=== PATIENT | female | born 1940 | race Caucasian/White ===

== ENCOUNTER 2018-04-26 16:46 | Inpatient (IN) | payer OTHER, MEDICAID ==
[~2018-04-26] VITALS: Ht 154.9 cm; Wt 86.2 kg
[~2018-04-26 16:46] MED LIST: FURO40TA4 PO; GLIP5TAB10 PO; LISI10TA2 PO; METF10007 PO; METO5TAB5 PO; PANT40TA5 PO; WARF-35 PO; WARF4TAB65 PO
--- NOTE | 2018-04-26 16:56 | ER.PDOC ---
General Chief Complaint: Requesting Medical Care Stated Complaint: SHORTNESS BREATH Time seen by MD: 17:00 Source: patient Exam Limitations: no limitations History of Present Illness Timing/Duration: 24 hours Severity: moderate Activities at Onset: activity/exertion, rest Prior Episodes/Possible Cause: occasional episodes Modifying Factors: improves with lying down, improves with oxygen, improves with rest Associated Symptoms: edema Prior symptoms/Treatment: Similar symptoms previous, Recenly Seen, Treated by Doctor Allergies: Coded Allergies: erythromycin base (Verified Allergy, Unknown, 02/12/18) Home Meds Active Scripts Metolazone (ZAROXOLYN) 5 Mg Tablet, 5 MG PO DAILY, #4 TABLET 0 Refills Prov:LUCAS PARR MD 02/13/18 Reported Medications Pantoprazole Sodium (PANTOPRAZOLE SODIUM) 40 Mg Tablet.dr, 40 MG PO DAILY24 02/12/18 Glipizide (GLIPIZIDE) 5 Mg Tablet, 1 TAB PO BID, #60 TAB 3 Refills 02/12/18 Furosemide (FUROSEMIDE) 40 Mg Tablet, 1 TAB PO DAILY, #30 TAB 5 Refills 02/12/18 Lisinopril (LISINOPRIL) 10 Mg Tablet, 1 TAB PO DAILY, #30 TAB 5 Refills 02/12/18 Metformin Hcl (METFORMIN HCL) 1,000 Mg Tablet, 2 TAB PO DAILY24, #60 TAB 5 Refills 02/12/18 Warfarin Sodium (WARFARIN SODIUM) 5 Mg Tablet, 7 TAB PO DAILY, #90 TAB 1 Refill 02/12/18 Warfarin Sodium (WARFARIN SODIUM) 4 Mg Tablet, 4 TAB PO DAILY, #90 TAB 1 Refill 02/12/18 Past Medical History Surgical History: tonsillectomy, other (pneumonectomy l side) LMP (females 10-50): postmenopause Family History Significant Family History: no pertinent family hx Social History Smoking: non-smoker Alcohol Use: none Drug Use: none Reviewed Nursing Reviewed: Vital Signs, Abn. Noted Review of Systems All Other Systems: Reviewed and Negative Physical Exam General Appearance: No Apparent Distress, WD/WN HEENT: PERRL/EOMI, Normal ENT Inspection, TMs Normal, Pharynx Normal Neck: Non-Tender, Full Range of Motion, Supple, Normal Inspection Respiratory: decreased breath sounds, rales Cardiovascular: Normal Peripheral Pulses, Regular Rate, Rhythm, No Edema, No Gallop, No JVD, No Murmur Gastrointestinal: Normal Bowel Sounds, No Organomegaly, No Pulsatile Mass, Non Tender, Soft Extremities: Pedal Edema Neurologic/Psychiatric: respiratory care program director II-XII NML as Tested, No Motor/Sensory Deficits, Alert, Normal Mood/Affect, Oriented x 3 Skin: Normal Color, Warm/Dry Lymphatic: No Adenopathy Results/Orders Results/Orders Laboratory Tests Test 04/26/18 17:12 White Blood Count 5.8 10^3/uL (4.5-11.0) Red Blood Count 3.60 10^6/uL (4.00-5.20) Hemoglobin 9.7 g/dL (12.0-15.0) Hematocrit 32.5 % (36.0-46.0) Mean Corpuscular Volume 90.3 fL (78-100) Mean Corpuscular Hemoglobin 26.9 pg (26-34) Mean Corpuscular Hemoglobin Concent 29.8 g/dL (33-37) Red Cell Distribution Width 15.0 % (11.5-14.5) Platelet Count 202 10^3/uL (150-400) Mean Platelet Volume 9.8 fL (7.8-11.0) Neutrophils (%) (Auto) 67.2 % (41.0-85.0) Lymphocytes (%) (Auto) 14.6 % (24.0-44.0) Monocytes (%) (Auto) 12.6 % (5.0-12.0) Neutrophils # (Auto) 3.9 10^3/uL (1.8-7.7) Lymphocytes # (Auto) 0.9 10^3/uL (1.0-4.8) Monocytes # (Auto) 0.7 10^3/uL (0.3-0.8) Absolute Immature Granulocyte (auto 0.05 10^3 u/L (0-2) Eosinophils % 4.0 % (0.0-5.0) Basophils % 0.7 % (0.0-0.2) Basophils # 0.0 10^3/uL (0.0-0.1) Eosinophil Count 0.2 10^3/uL (0.0-0.2) Prothrombin Time 27.4 SEC (9.8-11.9) Prothrombin Time INR (Non-Therap) 2.8 Activated Partial Thromboplast Time 41.0 SEC (24.67-30.72) D-Dimer 0.39 mg/L (0.19-0.49) Sodium Level Pending Potassium Level Pending Chloride Level Pending Carbon Dioxide Level Pending Anion Gap Pending Blood Urea Nitrogen Pending Creatinine Pending BUN/Creatinine Ratio Pending Glucose Level Pending Calcium Level Pending Total Bilirubin Pending Aspartate Amino Transf (AST/SGOT) Pending Alanine Aminotransferase (ALT/SGPT) Pending Alkaline Phosphatase Pending Total Creatine Kinase Pending Troponin I 0.02 ng/mL (0.00-0.05) Pro-B-Type Natriuretic Peptide Pending Total Protein Pending Albumin Pending Globulin Pending Percent Immature Gran (Cell Imm) 0.90 % (0.00-0.50) Helicobacter pylori Screen NEGATIVE (NEGATIVE) Administered Medications Medications (Trade) Dose Ordered Sig/Jose Route PRN Reason Start Time Stop Time Status Last Admin Dose Admin Furosemide (Lasix) 40 mg STAT STAT IV 04/26/18 17:01 04/26/18 17:06 DC 04/26/18 17:18 Albuterol/ Ipratropium (Duoneb 0.5 Mg-3 Mg/3 ml Soln) 3 ml STAT STAT IH 04/26/18 17:10 04/26/18 17:11 UNV 04/26/18 17:14 EKG/XRAY/CT/US EKG: NSR, nonspecific ST T wave chg EKG Comments: intermittent pacing Consult/PCP Time Consult/PCP Called: 19:00 Consult/PCP: dr parr Course Sepsis Screening Results: Posi: NEGATIVE Sepsis Qualifier/Stage: NO DEFINITE RISK Vitals & review Data Vital Sign - Last 24 Hours 04/26/18 04/26/18 04/26/18 04/26/18 17:06 17:06 17:06 17:09 Temp 97.7 97.7 97.7 97.7 Pulse 93 91 93 86 Resp 28 18 28 Pulse Ox 91 98 98 O2 Delivery Room Air 04/26/18 04/26/18 17:10 17:18 Temp 97.7 97.7 Pulse 86 Resp 28 B/P (MAP) 120/72 (88) 120/72 Pulse Ox 98 O2 Delivery Room Air Laboratory Tests Test 04/26/18 17:12 White Blood Count 5.8 10^3/uL Red Blood Count 3.60 10^6/uL Hemoglobin 9.7 g/dL Hematocrit 32.5 % Mean Corpuscular Volume 90.3 fL Mean Corpuscular Hemoglobin 26.9 pg Mean Corpuscular Hemoglobin Concent 29.8 g/dL Red Cell Distribution Width 15.0 % Platelet Count 202 10^3/uL Mean Platelet Volume 9.8 fL Neutrophils (%) (Auto) 67.2 % Lymphocytes (%) (Auto) 14.6 % Monocytes (%) (Auto) 12.6 % Neutrophils # (Auto) 3.9 10^3/uL Lymphocytes # (Auto) 0.9 10^3/uL Monocytes # (Auto) 0.7 10^3/uL Absolute Immature Granulocyte (auto 0.05 10^3 u/L Eosinophils % 4.0 % Basophils % 0.7 % Basophils # 0.0 10^3/uL Eosinophil Count 0.2 10^3/uL Prothrombin Time 27.4 SEC Prothrombin Time INR (Non-Therap) 2.8 Activated Partial Thromboplast Time 41.0 SEC D-Dimer 0.39 mg/L Troponin I 0.02 ng/mL Percent Immature Gran (Cell Imm) 0.90 % Helicobacter pylori Screen NEGATIVE Current Medications Medications (Trade) Dose Ordered Sig/Jose PRN Reason Start Time Stop Time Status Last Admin Albuterol/ Ipratropium (Duoneb 0.5 Mg-3 Mg/3 ml Soln) 3 ml STAT STAT 04/26/18 17:10 04/26/18 17:11 UNV 04/26/18 17:14 Departure Time of Disposition: 18:22 Disposition: 09 ADMITTED INPATIENT Impression: Primary Impression: CHF exacerbation Condition: Improved Referrals: LUCAS PARR MD (PCP) PRIMARY CARE PROVIDER Duration or Time Spent with Pa: 2 hrs RORO MATTSON MD Apr 26, 2018 16:56
[2018-04-26] MEDS ORDERED: DUONEB 0.5 MG-3 MG/3 ML SOLN IH ONE (17:00)
[2018-04-26] MEDS ORDERED: LASIX IV STA (17:01)
[2018-04-26 17:10] VITALS: BP 120/72
[2018-04-26] MEDS ORDERED: DUONEB 0.5 MG-3 MG/3 ML SOLN IH STA (17:10)
--- NOTE | 2018-04-26 17:11 | PCM.EKG ---
[facility] Test Date: 2018-04-26 Test Time: 17:09:45 Pat Name: SUHA LAURENT Department: Patient ID: [facility]-[id number] Room: Gender: F Balance Wheel Motion Inspector: EMMA : 1940 Requested By: RORO GREENE Order Number: [id number] Reading MD: Roro Greene Measurements Intervals [place] Rate: 89 P: 112 OK: 122 QRS: -63 QRSD: 114 T: 49 QT: 424 QTc: 515 Interpretive Statements sinus rhythm Left anterior fascicular block Nonspecific ST and T wave abnormality Prolonged QT Abnormal ECG Compared to ECG 02/12/2018 12:29:59 Left anterior fascicular block now present ST (T wave) deviation now present Prolonged QT interval now present Atrial fibrillation no longer present Ventricular premature complex(es) no longer present Myocardial infarct finding no longer present intermittent pacing Electronically Signed On 04-26-2018 17:17:48 [employer]ACHING [employer] by Roro Greene Please click the below link to view image of tracing.
[2018-04-26 17:16] LABS: BASOPHIL % 0.7 % (0.0-0.2); EOSINOPHIL # 0.2 10^3/uL (0.0-0.2); HEMOGLOBIN 9.7 g/dL (12.0-15.0); LYMPHOCYTES # 0.9 10^3/uL (1.0-4.8); LYMPHOCYTES % 14.6 % (24.0-44.0); MEAN CELL HGB 26.9 pg (26-34); MEAN CELL HGB CONCENTRATION 29.8 g/dL (33-37); MEAN CORP VOLUME 90.3 fL (78-100); MEAN PLATELET VOLUME 9.8 fL (7.8-11.0); MONOCYTES # 0.7 10^3/uL (0.3-0.8); MONOCYTES % 12.6 % (5.0-12.0); NEUTROPHIL # 3.9 10^3/uL (1.8-7.7); NEUTROPHILS % 67.2 % (41.0-85.0); WHITE BLOOD CELL 5.8 10^3/uL (4.5-11.0)
[2018-04-26] MEDS ORDERED: LASIX ONE (17:18)
--- NOTE | 2018-04-26 17:25 | DIREP ---
PROCEDURE:CHEST 1 VIEW COMPARISON:[facility], CR, XRAY CHEST SINGLE VW, 02/12/2018, 12:03 PM. INDICATIONS:dyspnea FINDINGS: LUNGS/PLEURA:Previous left pneumonectomy with volume loss in the left hemithorax. The left hemithorax is nearly, completely opacified with early aeration in the region the left lung apex. There is expansion in the right lung. VASCULATURE:Normal. Unremarkable pulmonary vasculature. CARDIAC:Normal. No cardiac silhouette abnormality or cardiomegaly. MEDIASTINUM:Mediastinum is shifted to the left. BONES:Normal. No fracture or visible bony lesion. OTHER:Monitor leads are in place. CONCLUSION:The right lung is clear. The left hemithorax remains nearly completely opacified Dictated by: Lois Levy M.D. on 04/26/2018 at 05:22 PM
[2018-04-26 17:42] LABS: CALCIUM 9.4 mg/dL (8.4-10.5); CARBON DIOXIDE 29.7 mmol/L (20.0-32)
--- NOTE | 2018-04-26 17:50 | NUR ---
KESHAV MATTSON ON PHONE WITH DR PARR REGARDING PT.
[2018-04-26] MEDS ORDERED: POTA20TA14 PO (18:03)
[2018-04-26] MEDS ORDERED: FURO40TA4 PO (18:03)
[2018-04-26] MEDS ORDERED: CARV12.5 PO (18:03)
[2018-04-26 18:05] VITALS: BP 101/62
--- NOTE | 2018-04-26 18:41 | NUR ---
Med Surg Called to bring patient up to med surgDafne states if we could wait a few minutes due to the nurses still being in report.
[2018-04-26 19:00] VITALS: BP 136/82
[2018-04-26] MEDS: DUONEB 0.5 MG-3 MG/3 ML SOLN IH SCH (20:09)
[2018-04-26] MEDS ORDERED: SOLU-MEDROL IV STA (22:05)
[2018-04-26] MEDS ORDERED: SOLU-MEDROL ONE (22:40)
[2018-04-26] MEDS: PROTONIX PO SCH (22:54)
[2018-04-26] MEDS: HNS 1000ML 1,000 ML IV SCH (22:54)
--- NOTE | 2018-04-26 23:08 | HPH ---
ADMIT DATE: 04/26/2018 The patient is being admitted as an inpatient to Med/Surg. PRIMARY CARE PHYSICIAN: Carla Chen MD ADMITTING DIAGNOSES: Chronic obstructive pulmonary disease exacerbation with acute hypoxic respiratory failure with a history of atrial fibrillation, diastolic congestive heart failure, hypertension, type 2 diabetes mellitus. CHIEF COMPLAINT: Breathing problems. HISTORY OF PRESENT ILLNESS: The patient is a 77-year-old female who has underlying COPD and heart failure issues who started to have increasing shortness of breath and congestion. Her O2 concentrator at home has been malfunctioning, so she states that she has been having increasing work of breathing. She was having worsening breathing, so she went into the ER where her O2 sats were down to 80% and she was given breathing treatments and IV Lasix and her O2 sats started to come back up, but she states that she has been having worsening shortness of breath and coughing at home. She has been taking her medications as prescribed and she has been urinating a lot due to her diuretics. She denies any fevers. No chills, no night sweats, no syncope, no lethargy. No chest pain reported. No dysuria. No arthralgias. No melena, no hematochezia, no hematemesis, no hemoptysis. She just states that she has been having gradual increasing shortness of breath and it is hard for her to breathe. PAST MEDICAL HISTORY: Significant for COPD. She has had a prior lung cancer, chronic atrial fibrillation, diastolic CHF that is chronic, hypertension, type 2 diabetes mellitus. ALLERGIES: ERYTHROMYCIN. PAST SURGICAL HISTORY: She has had a left pneumonectomy due to the lung cancer. She has had a colonoscopy. She had a tonsillectomy. SOCIAL HISTORY: She has quit smoking, no illicit drugs, no alcohol reported. FAMILY HISTORY: Asked and noncontributory for this admission. MEDICATIONS: She is on include Coreg, Lasix, glipizide, lisinopril, Zaroxolyn, Protonix, warfarin, metformin, potassium. PHYSICAL EXAMINATION: VITAL SIGNS: When she came into the ER, temperature was 97.7, pulse rate was 83, respirations up to 28, blood pressure was 120/72, O2 sats were 91%, but it did drop down in the 80s. My physical exam is as follows: GENERAL: When I saw her, she had already received Lasix and breathing treatments. HEENT: Oropharynx was clear. Moist mucous membranes noted. No maxillary sinus tenderness. NECK: Supple. HEART: S1 and S2 audible. She was not tachycardic. LUNGS: No breath sounds to the left side. Right side sounded clear. ABDOMEN: Good bowel sounds, soft abdomen, no rebound, no guarding, no masses felt. EXTREMITIES: She had some mild generalized edema to her legs, 2+ distal pulses. SKIN: Warm and dry. LABORATORY DATA: Obtained in the ER, white count was 5800, hemoglobin 9.7, platelet count of 202. Coags: Had a PT of 27.4, INR of 2.8, PTT of 41. D-dimer is 0.39. Chemistry panel showed a BUN that was elevated to 82, creatinine elevated to 1.89, potassium 4.9, glucose 201, proBNP was 12,487, albumin 3.3. Rest of LFTs were normal. H. pylori was negative. IMAGING STUDIES: Chest x-ray showed total whiteout of the left lung that is nothing new with her prior pneumonectomy and the right lung was clear. EKG showed some prolonged QT noted. Some ST segment changes that is nonspecific. ASSESSMENT: We have this elderly female with chronic obstructive pulmonary disease exacerbation with hypoxic acute respiratory failure with acute renal failure secondary to acute tubular necrosis and dehydration. I do believe she is over diuresed at this point and she is on the dry side affecting her kidneys. I will go ahead and hold her diuretics and gently hydrate her over the next 3 days to see if her BUN and creatinine improve, put her on some breathing treatments and a dose of Solu-Medrol x 1, and I will follow her sugars and blood pressures in the hospital. Carla Chen MD DR: AUGUSTO/reanna JOB# [id number]
[2018-04-26 23:16] VITALS: BP 112/52
[2018-04-27] MEDS: DUONEB 0.5 MG-3 MG/3 ML SOLN IH SCH ×4 (03:06→21:04)
[2018-04-27 04:26] VITALS: BP 121/63
[2018-04-27 07:15] VITALS: BP 114/52
[2018-04-27] MEDS: KLOR-CON 10 PO SCH (08:45)
[2018-04-27] MEDS: ZESTRIL PO SCH (08:49)
[2018-04-27] MEDS: GLUCOTROL PO SCH ×2 (08:49→21:04)
[2018-04-27] MEDS: COREG PO SCH ×3 (08:49→21:05)
[2018-04-27] MEDS ORDERED: LASIX IV SCH (09:00)
[2018-04-27] MEDS ORDERED: COUMADIN PO SCH (09:00)
--- NOTE | 2018-04-27 09:50 | NUR ---
DISCHARGE PLAN CASE MANAGEMENT VISITED WITH PATIENT AND FAMILY CONCERNING DISCHARGE PLAN AND NEEDS. LIVES AT HOME ALONE. HAS VERY SUPPORTIVE FAMILY. INDEPENDENT OF ADLS PRIOR TO THIS ADMISSION. HAS ALL DME INCLUDING WALKER, CANE, AND SHOWER IS SET UP WITH PULL UP BARS. HOME OXYGEN IS PROVIDED BY [facility], [place]. CM EDUCATED PATIENT ON HOME HEALTH AND OUTPATIENT SERVICES PATIENT TITA NEED FOR SERVICES. DISCHARGE GOAL IS TO DISCHARGE HOME ALONE AND CONTINUE SELF CARE. DENIES FURTHER NEEDS AT THIS TIME.
[2018-04-27 12:17] VITALS: BP 105/56
[2018-04-27] MEDS: HNS 1000ML 1,000 ML IV SCH (14:07)
[2018-04-27] MEDS: COUMADIN PO SCH (17:00)
[2018-04-27 17:09] VITALS: BP 126/61
[2018-04-27 17:17] LABS: CALCIUM 9.5 mg/dL (8.4-10.5); CARBON DIOXIDE 32.9 mmol/L (20.0-32)
[2018-04-27] MEDS ORDERED: COUMADIN ONE ×2 (17:31)
--- NOTE | 2018-04-27 17:45 | PRM.PN ---
Subjective Subjective Date: Apr 27, 2018 Time: 17:10 Subjective Pt doing ok; breathing ok VTE VTE Risk Total Score: >5 VTE Risk Score VTE Risk: Score 0-1 = Low Risk (Aggressive mobilization; early ambulation; no VTE prophylaxis required) Score 2: Moderate Risk (Intermittent/Pneumatic Compression Device OR Lovenox/Heparin/Coumadin) Score 3-4: High Risk (Intermittent/Pneumatic Compression Device AND Lovenox/Heparin/Coumadin) Score > or =5: Highest Risk (Intermittent/Pneumatic Compression Device AND Lovenox/Heparin/Coumadin) Antico:Hep/LMWH/Coum/Xarelto: Yes Mechanical device ordered: Yes Review of Systems Constitutional: No: Fever, Chills, Sweats, Weakness, Malaise Eyes: No: Pain, Vision change, Conjunctivae inflammation ENT: No: Ear pain, Ear discharge, Nose pain Respiratory: No: Cough, Dry, Shortness of breath Cardiovascular: No: Chest Pain, Palpitations, Orthopnea Gastrointestinal: No: Nausea, Vomiting, Abdominal Pain Musculoskeletal: No: neck pain, shoulder pain, arm pain Skin: No: Lesions, Jaundice, Bruising Neurological: No: Numbness, Confusion, Seizures Allergies: Coded Allergies: erythromycin base (Verified Allergy, Unknown, 02/12/18) Scheduled Carvedilol 12.5MG (Coreg 12.MG), 1 TAB PO TID, (Reported) Furosemide (Furosemide), 1 TAB PO DAILY, (Reported) Furosemide (Furosemide), 2.5 TAB PO TID, (Reported) Glipizide (Glipizide), 1 TAB PO BID, (Reported) Lisinopril (Lisinopril), 1 TAB PO DAILY, (Reported) Metformin Hcl (Metformin Hcl), 2 TAB PO DAILY24, (Reported) Metolazone (Zaroxolyn), 5 MG PO DAILY Pantoprazole Sodium (Pantoprazole Sodium), 40 MG PO DAILY24, (Reported) Potassium Chloride (Potassium Chloride), 2 TAB PO TID, (Reported) Warfarin Sodium (Warfarin Sodium), 4 TAB PO DAILY, (Reported) Warfarin Sodium (Warfarin Sodium), 7 TAB PO DAILY, (Reported) Objective Vitals and I/O Vital Sign - Last 24 Hours 04/26/18 04/26/18 04/26/18 04/26/18 18:05 18:47 18:48 19:00 Temp 97.8 97.8 Pulse 73 86 88 Resp 24 24 24 B/P (MAP) 101/62 (75) 136/82 (100) Pulse Ox 98 91 91 98 O2 Delivery Nasal Canula Nasal Cannula Nasal Canula O2 Flow Rate 3.00 3.00 3.00 FiO2 32 04/26/18 04/26/18 04/26/18 04/26/18 19:30 20:11 20:13 20:20 Pulse 88 88 85 Resp 20 20 18 Pulse Ox 92 92 92 O2 Delivery Nasal Cannula Nasal Cannula O2 Flow Rate 3.00 3.00 FiO2 32 04/26/18 04/27/18 04/27/18 04/27/18 23:16 03:06 03:11 04:26 Temp 97.8 97.9 97.8 97.9 Pulse 60 62 60 83 Resp 20 18 18 20 B/P (MAP) 112/52 (72) 121/63 (82) Pulse Ox 97 95 98 98 O2 Flow Rate 3.00 3.00 04/27/18 04/27/18 04/27/18 04/27/18 07:15 07:15 08:49 08:49 Temp 97.9 97.9 Pulse 60 60 Resp 20 B/P (MAP) 114/52 (72) 114/52 114/52 Pulse Ox 97 O2 Delivery Nasal Cannula O2 Flow Rate 3.00 3.00 04/27/18 04/27/18 04/27/18 04/27/18 09:24 09:25 09:35 12:17 Temp 97.9 97.9 Pulse 78 78 83 82 Resp 18 B/P (MAP) 105/56 (72) Pulse Ox 95 95 93 96 O2 Delivery Nasal Cannula Nasal Canula O2 Flow Rate 3.00 3.00 FiO2 32 04/27/18 04/27/18 04/27/18 04/27/18 14:07 14:53 14:58 17:09 Temp 98.9 98.9 Pulse 82 79 75 69 Resp 18 18 19 B/P (MAP) 105/56 126/61 (82) Pulse Ox 97 95 91 O2 Delivery Nasal [place] O2 Flow Rate 3.00 Intake and Output 04/26/18 04/26/18 04/27/18 15:00 23:00 07:00 Intake Total 350 ml Output Total 500 ml 800 ml Balance -500 ml -450 ml General: Alert, Oriented X3, Cooperative, No acute distress HEENT: Atraumatic, PERRLA, EOMI Neck: Supple, No JVD, No thyromegaly Lungs: Other (no BS to L side) Heart: Normal S1, Normal S2 Abdomen: Normal bowel sounds, Soft Extremities: No clubbing, No cyanosis Skin: No rashes, No breakdown Neuro: Normal speech Psych/Mental Status: Mental status NL, Mood NL Course Sepsis Screening Results: Posi: NEGATIVE Sepsis Qualifier/Stage: NO DEFINITE RISK Vitals & review Data Vital Sign - Last 24 Hours 04/26/18 04/26/1818 18 17:06 17:06 17:06 17:09 Temp 97.7 97.7 97.7 97.7 Pulse 93 91 93 86 Resp 18 28 18 28 Pulse Ox 91 98 98 O2 Delivery Room Air 04/26/18 04/26/18 17:10 17:18 Temp 97.7 97.7 Pulse 86 Resp 28 B/P (MAP) 120/72 (88) 120/72 Pulse Ox 98 O2 Delivery Room Air Laboratory Tests Test 04/26/18 17:12 White Blood Count 5.8 10^3/uL Red Blood Count 3.60 10^6/uL Hemoglobin 9.7 g/dL Hematocrit 32.5 % Mean Corpuscular Volume 90.3 fL Mean Corpuscular Hemoglobin 26.9 pg Mean Corpuscular Hemoglobin Concent 29.8 g/dL Red Cell Distribution Width 15.0 % Platelet Count 202 10^3/uL Mean Platelet Volume 9.8 fL Neutrophils (%) (Auto) 67.2 % Lymphocytes (%) (Auto) 14.6 % Monocytes (%) (Auto) 12.6 % Neutrophils # (Auto) 3.9 10^3/uL Lymphocytes # (Auto) 0.9 10^3/uL Monocytes # (Auto) 0.7 10^3/uL Absolute Immature Granulocyte (auto 0.05 10^3 u/L Eosinophils % 4.0 % Basophils % 0.7 % Basophils # 0.0 10^3/uL Eosinophil Count 0.2 10^3/uL Prothrombin Time 27.4 SEC Prothrombin Time INR (Non-Therap) 2.8 Activated Partial Thromboplast Time 41.0 SEC D-Dimer 0.39 mg/L Troponin I 0.02 ng/mL Percent Immature Gran (Cell Imm) 0.90 % Helicobacter pylori Screen NEGATIVE Current Medications Medications (Trade) Dose Ordered Sig/Jose PRN Reason Start Time Stop Time Status Last Admin Albuterol/ Ipratropium (Duoneb 0.5 Mg-3 Mg/3 ml Soln) 3 ml STAT STAT 04/26/18 17:10 04/26/18 17:11 UNV 04/26/18 17:14 Assessment/Plan Assessment/Plan Assessment/Plan 77 yo female with ARF with ATN and dehydration, COPD, h/i afib, DM, HTN - cont IVF - recheck labs tomorrow - cont O2 and neb tx - follow sugars and BPs LUCAS PARR MD Apr 27, 2018 17:45
[2018-04-27 19:22] VITALS: BP 113/70
[2018-04-27] MEDS: PROTONIX PO SCH (21:04)
[2018-04-28] VITALS: BP 112/73
[2018-04-28] MEDS: DUONEB 0.5 MG-3 MG/3 ML SOLN IH SCH ×3 (02:32→14:19)
[2018-04-28 04:00] VITALS: BP 127/81
--- NOTE | 2018-04-28 06:37 | NUR ---
report to siobhan bailey
--- NOTE | 2018-04-28 06:58 | NUR ---
REPORT REPORT RECEIVED FROM NETWORK INTELLIGENCE ANALYST
[2018-04-28 08:24] VITALS: BP 124/65
[2018-04-28] MEDS: ZESTRIL PO SCH (08:26)
[2018-04-28] MEDS: KLOR-CON 10 PO SCH (08:26)
[2018-04-28] MEDS: GLUCOTROL PO SCH ×2 (08:27→21:47)
[2018-04-28] MEDS: COREG PO SCH ×4 (08:27→21:47)
[2018-04-28] MEDS: HNS 1000ML 1,000 ML IV SCH (08:34)
--- NOTE | 2018-04-28 09:17 | DIREP ---
PROCEDURE:US KIDNEYS-BILAT COMPARISON:[facility], CT, CT CHEST W/CONTRAST, 10/28/2016, 09:10 AM. INDICATIONS:ARF TECHNIQUE:Ultrasound examination was performed of the kidneys and bladder. FINDINGS: RIGHT KIDNEY:10.1 x 4.9 x 4.3 cm. Cortex: 1.4 cm LEFT KIDNEY: 9.3 x 5.4 x 5.4 cm. Cortex: 1.2 cm BLADDER (pre-void):7.7 x 9.6 x 6.2 cm. Volume 323.3 ml BLADDER (post-void): 4.8 x 9.2 x 4.3 cm. Volume 99.2 ml MICTURATED VOLUME: 224.1 ml RIGHT KIDNEY: No hydronephrosis. Cyst noted in the superior pole measuring 2.8 x 2.3 x 3.0 cm. LEFT KIDNEY: Normal. No hydronephrosis. BLADDER:Normal. Bilateral ureteral jets are noted. OTHER:Negative. CONCLUSION:Right renal cyst. Large postvoid residual in the bladder. Otherwise normal examination. Dictated by: ENRIQUE Physician on 04/28/2018 at 08:53 AM ac
[2018-04-28 10:05] LABS: BASOPHIL % 0.4 % (0.0-0.2); EOSINOPHIL # 0.1 10^3/uL (0.0-0.2); EOSINOPHIL % 1.7 % (0.0-5.0); HEMOGLOBIN 8.8 g/dL (12.0-15.0); LYMPHOCYTES # 0.8 10^3/uL (1.0-4.8); LYMPHOCYTES % 11.2 % (24.0-44.0); MEAN CELL HGB 26.9 pg (26-34); MEAN CORP VOLUME 92.7 fL (78-100); MONOCYTES # 0.8 10^3/uL (0.3-0.8); MONOCYTES % 11.6 % (5.0-12.0); NEUTROPHIL # 5.1 10^3/uL (1.8-7.7); NEUTROPHILS % 74.1 % (41.0-85.0); RED CELL DISTRIBUTION WIDTH 15.1 % (11.5-14.5); WHITE BLOOD CELL 6.9 10^3/uL (4.5-11.0)
[2018-04-28 10:22] LABS: CALCIUM 9.3 mg/dL (8.4-10.5); CARBON DIOXIDE 30.7 mmol/L (20.0-32)
[2018-04-28 13:12] VITALS: BP 126/68
--- NOTE | 2018-04-28 13:15 | PRM.PN ---
Subjective Subjective Date: Apr 28, 2018 Time: 12:55 Subjective Pt doing ok; breathing ok VTE VTE Risk Total Score: >5 VTE Risk Score VTE Risk: Score 0-1 = Low Risk (Aggressive mobilization; early ambulation; no VTE prophylaxis required) Score 2: Moderate Risk (Intermittent/Pneumatic Compression Device OR Lovenox/Heparin/Coumadin) Score 3-4: High Risk (Intermittent/Pneumatic Compression Device AND Lovenox/Heparin/Coumadin) Score > or =5: Highest Risk (Intermittent/Pneumatic Compression Device AND Lovenox/Heparin/Coumadin) Antico:Hep/LMWH/Coum/Xarelto: Yes Mechanical device ordered: Yes Review of Systems Constitutional: No: Fever, Chills, Sweats, Weakness, Malaise Eyes: No: Pain, Vision change, Conjunctivae inflammation ENT: No: Ear pain, Ear discharge, Nose pain Respiratory: No: Cough, Dry, Shortness of breath Cardiovascular: No: Chest Pain, Palpitations, Orthopnea Gastrointestinal: No: Nausea, Vomiting, Abdominal Pain Musculoskeletal: No: neck pain, shoulder pain, arm pain Skin: No: Lesions, Jaundice, Bruising Neurological: Weakness; No: Numbness, Confusion, Seizures Allergies: Coded Allergies: erythromycin base (Verified Allergy, Unknown, 02/12/18) Scheduled Carvedilol 12.5MG (Coreg 12.MG), 1 TAB PO TID, (Reported) Furosemide (Furosemide), 1 TAB PO DAILY, (Reported) Furosemide (Furosemide), 2.5 TAB PO TID, (Reported) Glipizide (Glipizide), 1 TAB PO BID, (Reported) Lisinopril (Lisinopril), 1 TAB PO DAILY, (Reported) Metformin Hcl (Metformin Hcl), 2 TAB PO DAILY24, (Reported) Metolazone (Zaroxolyn), 5 MG PO DAILY Pantoprazole Sodium (Pantoprazole Sodium), 40 MG PO DAILY24, (Reported) Potassium Chloride (Potassium Chloride), 2 TAB PO TID, (Reported) Warfarin Sodium (Warfarin Sodium), 4 TAB PO DAILY, (Reported) Warfarin Sodium (Warfarin Sodium), 7 TAB PO DAILY, (Reported) Objective Vitals and I/O Vital Sign - Last 24 Hours 04/27/18 04/27/18 04/27/18 04/27/18 14:07 14:53 14:58 17:09 Temp 98.9 98.9 Pulse 82 79 75 69 Resp 18 18 19 B/P (MAP) 105/56 126/61 (82) Pulse Ox 97 95 91 O2 Delivery Nasal Canula O2 Flow Rate 3.00 04/27/18 04/27/18 04/27/18 04/27/18 19:22 19:22 19:22 21:05 Temp 98.0 98.0 98.0 98.0 Pulse 77 77 69 Resp 18 18 B/P (MAP) 113/70 (84) 113/70 (84) 126/61 Pulse Ox 97 97 O2 Delivery Nasal Cannula Nasal Canula Nasal Canula O2 Flow Rate 2.50 2.50 2.50 04/27/18 04/27/18 04/27/18 04/28/18 21:07 21:07 21:10 00:00 Temp 97.7 97.7 Pulse 83 80 83 80 Resp 22 23 18 B/P (MAP) 112/73 (86) Pulse Ox 97 96 95 98 O2 Delivery Nasal Cannula Nasal Canula O2 Flow Rate 3.00 2.50 04/28/18 04/28/18 04/28/18 04/28/18 02:32 02:32 04:00 08:24 Temp 97.7 97.4 97.7 97.4 Pulse 80 81 80 96 Resp 23 18 18 B/P (MAP) 127/81 (96) 124/65 (84) Pulse Ox 92 91 98 94 O2 Delivery Nasal Canula Nasal Canula O2 Flow Rate 2.50 2.00 04/28/18 04/28/18 04/28/18 04/28/18 08:26 08:27 08:32 08:33 Pulse 96 96 96 Resp 18 18 B/P (MAP) 124/65 124/65 Pulse Ox 94 94 O2 Delivery Nasal Cannula O2 Flow Rate 3.00 04/28/18 04/28/18 08:39 09:00 Pulse 96 Resp 18 Pulse Ox 94 O2 Delivery Nasal Cannula O2 Flow Rate 2.50 Intake and Output 04/27/18 04/27/18 04/28/18 15:00 23:00 07:00 Intake Total 120 ml Output Total 500 ml 600 ml 1150 ml Balance -380 ml -600 ml -1150 ml General: Alert, Oriented X3, Cooperative, No acute distress HEENT: Atraumatic, PERRLA Neck: Supple, No JVD Lungs: Clear to auscultation, Normal air movement Heart: Normal S1, Normal S2 Abdomen: Normal bowel sounds, Soft Extremities: No clubbing, No cyanosis Neuro: Normal speech Psych/Mental Status: Mental status NL, Mood NL Course Sepsis Screening Results: Posi: NEGATIVE Sepsis Qualifier/Stage: NO DEFINITE RISK Vitals & review Data Vital Sign - Last 24 Hours 04/26/18 04/26/18 04/26/18 04/26/18 17:06 17:06 17:06 17:09 Temp 97.7 97.7 97.7 97.7 Pulse 93 91 93 86 Resp 18 28 18 28 Pulse Ox 91 98 98 O2 Delivery Room Air 04/26/18 04/26/18 17:10 17:18 Temp 97.7 97.7 Pulse 86 Resp 28 B/P (MAP) 120/72 (88) 120/72 Pulse Ox 98 O2 Delivery Room Air Laboratory Tests Test 04/26/18 17:12 White Blood Count 5.8 10^3/uL Red Blood Count 3.60 10^6/uL Hemoglobin 9.7 g/dL Hematocrit 32.5 % Mean Corpuscular Volume 90.3 fL Mean Corpuscular Hemoglobin 26.9 pg Mean Corpuscular Hemoglobin Concent 29.8 g/dL Red Cell Distribution Width 15.0 % Platelet Count 202 10^3/uL Mean Platelet Volume 9.8 fL Neutrophils (%) (Auto) 67.2 % Lymphocytes (%) (Auto) 14.6 % Monocytes (%) (Auto) 12.6 % Neutrophils # (Auto) 3.9 10^3/uL Lymphocytes # (Auto) 0.9 10^3/uL Monocytes # (Auto) 0.7 10^3/uL Absolute Immature Granulocyte (auto 0.05 10^3 u/L Eosinophils % 4.0 % Basophils % 0.7 % Basophils # 0.0 10^3/uL Eosinophil Count 0.2 10^3/uL Prothrombin Time 27.4 SEC Prothrombin Time INR (Non-Therap) 2.8 Activated Partial Thromboplast Time 41.0 SEC D-Dimer 0.39 mg/L Troponin I 0.02 ng/mL Percent Immature Gran (Cell Imm) 0.90 % Helicobacter pylori Screen NEGATIVE Current Medications Medications (Trade) Dose Ordered Sig/Jose PRN Reason Start Time Stop Time Status Last Admin Albuterol/ Ipratropium (Duoneb 0.5 Mg-3 Mg/3 ml Soln) 3 ml STAT STAT 04/26/18 17:10 04/26/18 17:11 UNV 04/26/18 17:14 Assessment/Plan Assessment/Plan Assessment/Plan 77 yo female with ARF/dehydration, COPD, afib - cont cautious IVF - cont neb tx and O2 - recheck Cr tomorrow; renal U/S ok LUCAS PARR MD Apr 28, 2018 13:15
[2018-04-28 17:11] VITALS: BP 106/53
[2018-04-28] MEDS ORDERED: COUMADIN ONE ×2 (17:37)
[2018-04-28] MEDS: COUMADIN PO SCH (17:40)
[2018-04-28 19:10] VITALS: BP 91/41
--- NOTE | 2018-04-28 21:00 | NUR ---
held coreg 12.5mg po at this time d/t low bp 91/41. report to charge, will cont. monitor
[2018-04-28] MEDS: PROTONIX PO SCH (21:47)
[2018-04-28] MEDS ORDERED: MYLANTA ONE ×2 (22:31→22:33)
[2018-04-28] MEDS: MILK OF MAGNESIA PO STA ×2 (22:37→22:42)
[2018-04-29 00:30] VITALS: BP 115/52
[2018-04-29] MEDS: COREG PO SCH ×2 (01:09→09:32)
[2018-04-29] MEDS: HNS 1000ML 1,000 ML IV SCH (01:12)
[2018-04-29] MEDS: DUONEB 0.5 MG-3 MG/3 ML SOLN IH SCH ×2 (03:09→10:07)
[2018-04-29 04:00] VITALS: BP 123/56
--- NOTE | 2018-04-29 06:34 | NUR ---
REPORT REPORT RECEIVED FROM CHRISTOPHER WARD ASSUMED CARE OF PT
[2018-04-29 07:05] VITALS: BP 125/62
[2018-04-29 07:45] LABS: CALCIUM 9.4 mg/dL (8.4-10.5); CARBON DIOXIDE 34.3 mmol/L (20.0-32)
[2018-04-29] MEDS: GLUCOTROL PO SCH (09:32)
[2018-04-29] MEDS: ZESTRIL PO SCH (09:32)
[2018-04-29] MEDS: KLOR-CON 10 PO SCH (09:32)
[2018-04-29 12:05] VITALS: BP 125/62
--- NOTE | 2018-04-29 12:05 | NUR ---
D/C D/C INSTRUCTIONS GIVEN TO PT WRITTEN AND VERBALLY, NO S/S OF DISTRESS NOTED. PT OFF OF FLOOR VIA W/C, D/C HOME VIA PRIVATE VEHICLE. RELINQUISHED CARE OF PT.
--- NOTE | 2018-04-29 17:57 | DSH ---
DATE OF DISCHARGE: 04/29/2018 ADMITTING DIAGNOSES: 1. Acute renal failure with acute tubular necrosis secondary to dehydration and volume depletion. 2. Chronic diastolic congestive heart failure with chronic obstructive pulmonary disease exacerbation and hypoxia with hypertension and type 2 diabetes mellitus. DISCHARGE DIAGNOSES: 1. Dehydration, resolving. 2. Acute renal failure, resolved. 3. Hypertension. 4. Type 2 diabetes mellitus. 5. Chronic diastolic congestive heart failure. HOSPITAL COURSE: The patient is a pleasant 77-year-old female who came in with shortness of breath. She had low O2 sats on room air, but she does have oxygen at home. She did have a prior left pneumonectomy, but chest x-ray did not show any infiltrates or fluid on the right side. Her creatinine was up close to 2 and her baseline is around 1.2. She was taking her diuretics and she was getting dehydrated, so I went ahead and cautiously started her on some IV fluids at 60 mL an hour and held her diuretics, continued her breathing treatments and followed her in the hospital. Her breathing is improved and she is back to baseline. Her creatinine is down to 1.2 now and she is hydrated. She has no significant peripheral edema at this point as well. I talked to her and explained to her that there is not fine line between managing fluid overload versus volume depletion causing renal failure and that I asked her to get a weight scale at home and if she were to gain significant amount of weight, which is 7 pounds in a day, then she would start her back on her diuretic, but for now, I have asked her to hold her diuretic and her potassium, follow up with me on Tuesday and I will reweigh and see what her volume status is at that point. She is to continue her home O2, breathing treatments and diet and activity level as well. Carla Chen MD DR: AUGUSTO/reanna JOB# [id number]
[2018-05-16] MEDS ORDERED: Ipratropium/Albuterol Sulfate IH (10:34)
[2018-05-16] MEDS ORDERED: ATOR20TA PO (10:34)
[2018-05-16] MEDS ORDERED: SPIR25TA PO (10:34)
[2018-05-16] MEDS ORDERED: CARV6.252 PO (10:34)
[2018-05-16] MEDS ORDERED: DIGO125T81 PO (10:34)
[2018-05-16] MEDS ORDERED: ROFL500T PO (10:34)
[2018-05-16] MEDS ORDERED: BUDE0.5A3 IH (10:34)
[2018-05-16] MEDS ORDERED: WARF2.5T PO (10:34)
[2018-05-16] MEDS ORDERED: LOSA25TA2 PO (10:34)
[2018-05-17] MEDS ORDERED: CELE100C PO (12:01)
== END 2018-04-29 12:08 | disposition home or self-care (01) | DRG 682 ==
LOC: ER 16:46 → MS 17:55
PROVIDERS: ADMIT Pediatrics; ATTEND Pediatrics
DX: N17.0 Acute kidney failure with tubular necrosis (principal); J96.01 Acute respiratory failure with hypoxia; J44.1 Chronic obstructive pulmonary disease with (acute) exacerbation; I50.32 Chronic diastolic (congestive) heart failure; I11.0 Hypertensive heart disease with heart failure; E86.0 Dehydration; I48.2 Chronic atrial fibrillation; E11.9 Type 2 diabetes mellitus without complications; T50.2X5A Adverse effect of carbonic-anhydrase inhibitors, benzothiadiazides and other diuretics, initial encounter; Z90.2 Acquired absence of lung [part of]; Z99.81 Dependence on supplemental oxygen; Z85.118 Personal history of other malignant neoplasm of bronchus and lung; Z87.891 Personal history of nicotine dependence; Y92.89 Other specified places as the place of occurrence of the external cause
CPT/HCPCS: 36415; 71045; 76770; 80048; 80053; 82550; 82948; 83880; 84484; 85025; 85379; 85610; 85730; 86677; 93005; 94640; 96374; 99285; G0378; J1940; J2920; J2930; J3480; J3490; J7030; J7620

== ENCOUNTER 2018-05-14 10:26 | Inpatient (IN) | payer OTHER, MEDICAID ==
[~2018-05-14] VITALS: Ht 154.9 cm; Wt 87.2 kg
[2018-05-14] VITALS (32 sets, daily range): BP systolic 86–145; BP diastolic 37–107
[~2018-05-14 10:26] MED LIST changes: +CARV12.5 PO; +POTA20TA14 PO
[2018-05-14] MEDS ORDERED: LASIX IV STA (10:39)
[2018-05-14] MEDS ORDERED: FURO40TA4 PO (10:52)
[2018-05-14] MEDS ORDERED: POTA20TA14 PO (10:52)
--- NOTE | 2018-05-14 10:52 | NUR ---
ARRIVAL PATIENT ARRIVED ED3 VIA W/C WITH FAMILY, C/O OF SHORTNESS OF BREATH,LEG AND FEET SWELLING FOR THE PAST COUPLE OF DAYS, WAS RECENLTY CUT BACK ON HER LASIX AND WAS UNABLE TO SEE DOCTOR KESHAV BECAUSE HE IS OUT OF TOWN. CAME TO THE ED, MANAGER COUNCIL APPLIED AND VITAL SIGNS OBTAINED.
[2018-05-14 10:57] LABS: BASOPHIL % 0.8 % (0.0-0.2); EOSINOPHIL # 0.1 10^3/uL (0.0-0.2); EOSINOPHIL % 2.7 % (0.0-5.0); LYMPHOCYTES # 0.9 10^3/uL (1.0-4.8); LYMPHOCYTES % 16.9 % (24.0-44.0); MEAN CELL HGB 27.2 pg (26-34); MEAN CORP VOLUME 93.8 fL (78-100); MEAN PLATELET VOLUME 10.1 fL (7.8-11.0); MONOCYTES # 0.5 10^3/uL (0.3-0.8); MONOCYTES % 10.2 % (5.0-12.0); NEUTROPHIL # 3.6 10^3/uL (1.8-7.7); RED CELL DISTRIBUTION WIDTH 16.9 % (11.5-14.5); WHITE BLOOD CELL 5.2 10^3/uL (4.5-11.0)
[2018-05-14 11:18] LABS: CALCIUM 9.6 mg/dL (8.4-10.5); CARBON DIOXIDE 30.7 mmol/L (20.0-32)
--- NOTE | 2018-05-14 11:22 | NUR ---
COREAS PLACED 16 COREAS IN PT. TOLERATED WILL WITH NO URETHRAL RESISTANCE UPON PLACEMENT. RETURN OF APPROX 400ML OF LIGHT STRAW COLORED URINE. POST PLACEMENT RAISED PT TO HIGH FOWLERS POSITION WITH BEDRAILS IN PLACE. CALL LIGHT WITHIN REACH.
[2018-05-14] MEDS ORDERED: LASIX ONE (11:23)
--- NOTE | 2018-05-14 11:27 | DIREP ---
PROCEDURE:CHEST 2 VIEWS COMPARISON:CLAUDIA Lemus, CHEST 2 VIEW, 10/26/2016, 08:59 AM. KEVIN Lemus, CT CHEST W/CONTRAST, 10/28/2016, 09:10 AM. CLAUDIA Lemus, CHEST 2 VIEW, 09/26/2017, 10:10 AM. [facility], CLAUDIA, XRAY CHEST SINGLE VW, 04/26/2018, 04:31 PM. INDICATIONS:chf FINDINGS: LUNGS/PLEURA:Left pneumonectomy. Increased AP diameter of the chest. No effusions. VASCULATURE:Normal. Unremarkable pulmonary vasculature. CARDIAC:Cardiac pacemaker in place from a left subclavian approach. MEDIASTINUM:The mediastinum is markedly shifted to the left. BONES:Mild lower thoracic kyphosis. OTHER:Negative. CONCLUSION:Left pneumonectomy. The right lung remains clear. No significant change from the previous examination. Dictated by: Stanley Fernandez III, MD on 05/14/2018 at 11:23 AM
--- NOTE | 2018-05-14 12:04 | NUR ---
ZEE MATTSON ON PHONE FOR PT ADMIT CONSULT
--- NOTE | 2018-05-14 12:06 | NUR ---
ORFALY NO ADMIT FOR PT AT THIS TIME. DISCHARGE TO HOME.
--- NOTE | 2018-05-14 12:08 | ER.PDOC ---
General Chief Complaint: Dyspnea/Respdistress Stated Complaint: SOB,LEG/FEET SWELLING TRAVEL OUT OF US: No Time seen by MD: 12:03 Source: patient Exam Limitations: no limitations History of Present Illness Timing/Duration: 1 week Severity: mild Allergies: Coded Allergies: erythromycin base (Verified Allergy, Unknown, 02/12/18) Home Meds Reported Medications Potassium Chloride (POTASSIUM CHLORIDE) 20 Meq Tab.er.prt, 1 TAB PO DAILY, #90 TAB 3 Refills 05/14/18 Furosemide (FUROSEMIDE) 40 Mg Tablet, 1 TAB PO DAILY, #90 TAB 3 Refills 05/14/18 Carvedilol 12.5MG (COREG 12.MG) 12.5 Mg Tablet, 1 TAB PO TID, #180 TAB 1 Refill 04/26/18 Pantoprazole Sodium (PANTOPRAZOLE SODIUM) 40 Mg Tablet.dr, 40 MG PO DAILY24 02/12/18 Glipizide (GLIPIZIDE) 5 Mg Tablet, 1 TAB PO BID, #60 TAB 3 Refills 02/12/18 Lisinopril (LISINOPRIL) 10 Mg Tablet, 1 TAB PO DAILY, #30 TAB 5 Refills 02/12/18 Metformin Hcl (METFORMIN HCL) 1,000 Mg Tablet, 2 TAB PO DAILY24, #60 TAB 5 Refills 02/12/18 Warfarin Sodium (WARFARIN SODIUM) 4 Mg Tablet, 4 TAB PO DAILY, #90 TAB 1 Refill 02/12/18 Discontinued Reported Medications Warfarin Sodium (WARFARIN SODIUM) 5 Mg Tablet, 7 TAB PO DAILY, #90 TAB 1 Refill 02/12/18 Past Medical History Medical History: congestive heart failure, diabetes, GERD, hypertension Surgical History: tonsillectomy, other LMP (females 10-50): postmenopause Social History Smoking: non-smoker Alcohol Use: none Drug Use: none Reviewed Nursing Reviewed: Vital Signs, Abn. 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 Skin: Normal Color Lymphatic: No Adenopathy Results/Orders Results/Orders Laboratory Tests Test 05/14/18 10:50 White Blood Count 5.2 10^3/uL (4.5-11.0) Red Blood Count 3.68 10^6/uL (4.00-5.20) Hemoglobin 10.0 g/dL (12.0-15.0) Hematocrit 34.5 % (36.0-46.0) Mean Corpuscular Volume 93.8 fL (78-100) Mean Corpuscular Hemoglobin 27.2 pg (26-34) Mean Corpuscular Hemoglobin Concent 29.0 g/dL (33-37) Red Cell Distribution Width 16.9 % (11.5-14.5) Platelet Count 167 10^3/uL (150-400) Mean Platelet Volume 10.1 fL (7.8-11.0) Neutrophils (%) (Auto) 69.0 % (41.0-85.0) Lymphocytes (%) (Auto) 16.9 % (24.0-44.0) Monocytes (%) (Auto) 10.2 % (5.0-12.0) Neutrophils # (Auto) 3.6 10^3/uL (1.8-7.7) Lymphocytes # (Auto) 0.9 10^3/uL (1.0-4.8) Monocytes # (Auto) 0.5 10^3/uL (0.3-0.8) Absolute Immature Granulocyte (auto 0.02 10^3 u/L (0-2) Eosinophils % 2.7 % (0.0-5.0) Basophils % 0.8 % (0.0-0.2) Basophils # 0.0 10^3/uL (0.0-0.1) Eosinophil Count 0.1 10^3/uL (0.0-0.2) Prothrombin Time 31.1 SEC (9.8-11.9) Prothrombin Time INR (Non-Therap) 3.2 Activated Partial Thromboplast Time 28.0 SEC (24.67-30.72) D-Dimer 0.49 mg/L (0.19-0.49) Sodium Level 141 mmol/L (132-145) Potassium Level 4.3 mmol/L (3.6-5.2) Chloride Level 102.0 mmol/L (96-109) Carbon Dioxide Level 30.7 mmol/L (20.0-32) Anion Gap 12.6 Blood Urea Nitrogen 33 mg/dL (7-18) Creatinine 1.28 mg/dL (0.59-1.40) Estimated GFR () 49.1 (>/=60) BUN/Creatinine Ratio 25.0 Glucose Level 88 mg/dL (70-110) Calcium Level 9.6 mg/dL (8.4-10.5) Total Bilirubin 0.7 mg/dL (0.2-1.0) Aspartate Amino Transf (AST/SGOT) 15 U/L (0-35) Alanine Aminotransferase (ALT/SGPT) 19 U/L (12-78) Alkaline Phosphatase 70 U/L (50-136) Total Creatine Kinase 43 U/L (26-192) Troponin I 0.03 ng/mL (0.00-0.05) Pro-B-Type Natriuretic Peptide 9904 pg/mL (0-450) Total Protein 6.7 g/dL (6.4-8.2) Albumin 3.5 g/dL (3.4-5.0) Globulin 3.2 Percent Immature Gran (Cell Imm) 0.40 % (0.00-0.50) Helicobacter pylori Screen NEGATIVE (NEGATIVE) Administered Medications Medications (Trade) Dose Ordered Sig/Jose Route PRN Reason Start Time Stop Time Status Last Admin Dose Admin Furosemide (Lasix) 40 mg STAT STAT IV 05/14/18 10:39 05/14/18 10:41 DC 05/14/18 11:29 EKG/XRAY/CT/US EKG Comments: paced rythm Consult/PCP Time Consult/PCP Called: 12:33 Consult/PCP: dr charles Course Sepsis Screening Results: Posi: POSITIVE SEPSIS RISK Sepsis Qualifier/Stage: NO DEFINITE RISK Vitals & review Data Vital Sign - Last 24 Hours 04/29/18 04/29/18 05/14/18 05/14/18 09:32 12:05 10:46 10:47 Temp 97.9 97.9 97.9 97.9 Pulse 76 82 89 89 Resp 21 21 Pulse Ox 96 O2 Delivery Room Air 05/14/18 05/14/18 05/14/18 10:49 11:29 11:41 Temp 97.9 97.9 97.9 97.9 Pulse 89 79 Resp 21 21 B/P (MAP) 127/107 (114) 157/88 145/72 (96) Pulse Ox 96 96 O2 Delivery Nasal Canula Nasal Canula O2 Flow Rate 3.00 3.00 Laboratory Tests Test 05/14/18 10:50 White Blood Count 5.2 10^3/uL Red Blood Count 3.68 10^6/uL Hemoglobin 10.0 g/dL Hematocrit 34.5 % Mean Corpuscular Volume 93.8 fL Mean Corpuscular Hemoglobin 27.2 pg Mean Corpuscular Hemoglobin Concent 29.0 g/dL Red Cell Distribution Width 16.9 % Platelet Count 167 10^3/uL Mean Platelet Volume 10.1 fL Neutrophils (%) (Auto) 69.0 % Lymphocytes (%) (Auto) 16.9 % Monocytes (%) (Auto) 10.2 % Neutrophils # (Auto) 3.6 10^3/uL Lymphocytes # (Auto) 0.9 10^3/uL Monocytes # (Auto) 0.5 10^3/uL Absolute Immature Granulocyte (auto 0.02 10^3 u/L Eosinophils % 2.7 % Basophils % 0.8 % Basophils # 0.0 10^3/uL Eosinophil Count 0.1 10^3/uL Prothrombin Time 31.1 SEC Prothrombin Time INR (Non-Therap) 3.2 Activated Partial Thromboplast Time 28.0 SEC D-Dimer 0.49 mg/L Sodium Level 141 mmol/L Potassium Level 4.3 mmol/L Chloride Level 102.0 mmol/L Carbon Dioxide Level 30.7 mmol/L Anion Gap 12.6 Blood Urea Nitrogen 33 mg/dL Creatinine 1.28 mg/dL Estimated GFR () 49.1 BUN/Creatinine Ratio 25.0 Glucose Level 88 mg/dL Calcium Level 9.6 mg/dL Total Bilirubin 0.7 mg/dL Aspartate Amino Transf (AST/SGOT) 15 U/L Alanine Aminotransferase (ALT/SGPT) 19 U/L Alkaline Phosphatase 70 U/L Total Creatine Kinase 43 U/L Troponin I 0.03 ng/mL Pro-B-Type Natriuretic Peptide 9904 pg/mL Total Protein 6.7 g/dL Albumin 3.5 g/dL Globulin 3.2 Percent Immature Gran (Cell Imm) 0.40 % Helicobacter pylori Screen NEGATIVE Departure Time of Disposition: 13:00 Disposition: 01 HOME, SELF-CARE Impression: Primary Impression: Congestive heart failure Condition: Improved Referrals: LUCAS PARR MD (PCP) PRIMARY CARE PROVIDER Duration or Time Spent with Pa: 2 hrs RORO MATTSON MD May 14, 2018 12:08
--- NOTE | 2018-05-14 12:13 | PCM.EKG ---
[facility] Test Date: 2018-05-14 Test Time: 11:04:33 Pat Name: SUHA LAURENT Department: [id number] Room: Gender: F Credit Assessment Analyst: RT : 1940 Requested By: RORO MATTSON Order Number: [id number] Reading MD: Measurements Intervals [place] Rate: 79 P: [place]: QRS: -62 QRSD: 166 T: 107 QT: 478 QTc: 548 Interpretive Statements Electronic ventricular pacemaker No previous ECG available for comparison Please click the below link to view image of tracing.
--- NOTE | 2018-05-14 12:27 | NUR ---
RAVINDER HE WILL COME AND SEE PT IN THE ER. PT IS AGREEABLE TO HAVE RAVINDER PARTICIPATE IN HER CARE; DR. YUN IN [place] IS HER CARDIOLOGY.
--- NOTE | 2018-05-14 12:27 | NUR ---
RAVINDER MATTSON ON PHONE FOR PT ADMIT CONSULT.
--- NOTE | 2018-05-14 12:31 | NUR ---
RAVINDER AT BEDSIDE EVALUATING PT.
[2018-05-14] MEDS ORDERED: LANOXIN IV STA (12:41)
[2018-05-14] MEDS ORDERED: LANOXIN ONE (12:56)
[2018-05-14] MEDS: PROTONIX PO SCH (13:00)
--- NOTE | 2018-05-14 13:20 | NUR ---
ARRIVAL PATIENT ARRIVED VIA STRETCHER ON PORTABLE O2 AT 3L/NC. NO DISTRESS NOTED. PAITENT TRANSFERRED INTO ICU BED WITH 3 PERSON ASSIST. HOB ELEVATED TO 45 DEGREES. PATIENT CONNECTED TO [employer] TELEMONITOR. PATIENT IN AFIB WITH PACER NOTED. ADMISSION ASSESSMENT AND ADMISSION PACKET COMPLETED CHARTED. SEE EMR.
[2018-05-14] MEDS ORDERED: DOBUTREX IV ONE (13:30)
[2018-05-14] MEDS ORDERED: D5W IV ONE (13:30)
[2018-05-14] MEDS ORDERED: DUONEB 0.5 MG-3 MG/3 ML SOLN IH SCH (16:00)
[2018-05-14] MEDS: COUMADIN PO SCH (17:00)
--- NOTE | 2018-05-14 17:00 | NUR ---
COUMADIN 2.5MG PATIENT STATED SHE TOOK COUMADIN IN AM AT HOME.
[2018-05-14 17:09] LABS: ABG PCO2 50.3 mmHg (35.0-45.0); ABG PH 7.426 (7.350-7.450); BE(B) 6.9 mmol/L (-2.0-2.0); HCO3act 32.3 mmol/L (22.0-26.0); pO2 81.2 mmHg (75.0-100.0)
[2018-05-14] MEDS ORDERED: COUMADIN ONE (18:47)
--- NOTE | 2018-05-14 19:00 | NUR ---
RECEIVED PATIENT ON HIGH BAEZ'S POSITION. PT STATED THAT IS HER POSITION OF COMFORT. INTRODUCED SELF. ASSUMED CARE. SEE ASSESSMENT.
--- NOTE | 2018-05-14 19:10 | NUR ---
HYPOTENSIVE DR. CASTELLON NOTIFIED OF PATIENT LOW BP OF 96/37. TELEPHONE ORDER FOR 300CC BOLUS. RBAV.
[2018-05-14] MEDS ORDERED: NS 500ML 500 ML IV ONE (19:30)
[2018-05-14] MEDS: DUONEB 0.5 MG-3 MG/3 ML SOLN IH SCH (20:15)
[2018-05-14] MEDS: LIPITOR PO SCH (20:28)
[2018-05-14] MEDS: COREG PO SCH (20:32)
[2018-05-14] MEDS ORDERED: COREG PO SCH (21:00)
--- NOTE | 2018-05-14 22:44 | HPH ---
ADMIT DATE: 05/14/2018 IDENTIFICATION: A 77-year-old female. CHIEF COMPLAINT: Worsening shortness of breath. HISTORY OF PRESENT ILLNESS: The patient is a 77-year-old white female who is a primary patient of Dr. Chen and he has been seeing her. 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 Quiroga in [place] and about 3 months [address] he had Dr. Gardner implant pacer ICD in her and she had an episode of VT also, has underlying history of atrial fibrillation, on anticoagulation and also has COPD and congestive heart failure, non-insulin dependent diabetes mellitus and at one point, according to the claims from her daughter, she has been on 300 mg of Lasix. At the present time, came to the Emergency Room with increasing shortness of breath and had 4+ leg edema up to the mid thigh region. The patient claims that she has seen me several years ago. She denies any history of any chest pain. Her coronary artery disease status is unclear. She states she had heart catheterization done some years ago, but at the present time, was in severe right-sided heart failure and claims that she has gotten worse with weight gain and shortness of breath and worsening leg edema. Hence, admitted in the absence of Dr. Chen under me for optimization of medical therapy. She did not have any chest pain. No known history of any malignancies. ALLERGIES: ERYTHROMYCIN. MEDICATIONS: She has been on potassium ____ once a day. She is right now taking only Lasix 40 mg once a day, but she says she was on 100 mg of Lasix before Dr. Chen left town and periodically she is taking up to 300 mg of Lasix. I am not sure if this is the correct dose, she may be confused. Based on the daughter, she was taking 3 pills of 40 mg, which is 120 mg, but I am not sure of 300 mg is the correct dose, Coreg 12.5 mg 3 times a day, Protonix 40 mg once a day, glipizide 5 mg twice a day, lisinopril 10 mg once a day, metformin 2 grams a day, Coumadin 4 mg daily. PAST MEDICAL HISTORY: Known history of congestive heart failure since 2003, progressively has gotten worse; non-insulin dependent diabetes mellitus; hypertension; hypertensive heart disease; recently had an ICD implant; has history of atrial fibrillation since 2003; GERD manifestations; tonsillectomy. No other history of any cancers, TIA or stroke manifestations. SOCIAL HISTORY: She is a nonsmoker. She has never been a smoker. No history of any ethanol abuse. FAMILY HISTORY: Not much available for me, but based on the review of notes from the ER physician, her father had congestive heart failure and according to her, I took care of her while back as she has history of heart disease in the family. PHYSICAL EXAMINATION: VITAL SIGNS: She is 154 cm, 82 kilograms, BMI 34.3. When I saw her, her pulse was close to 100, respirations were 28. Her blood pressure was 130/60. Saturations were 92-93% on 2 liters nasal cannula. HEENT: Unremarkable. Device in the left infraclavicular region. JVD was discernible about 8-10 cm over the angle of Naif. NECK: No definite carotid bruits were noted. CHEST: Showed poor respiratory excursions. LUNGS: Poor air entry bilaterally. HEART: Sounds S1, S2 normal. Systolic ejection murmur grade 2/6 heard at the left sternal border and has a systolic murmur grade 2/6 on the right side parasternally, very likely could be consistent with significant tricuspid regurgitation. ABDOMEN: Obese, slightly protuberant. No organomegaly elicited. Significant skin pallor is noted. EXTREMITIES: 4+ leg edema up to the mid thigh region bilaterally. Distal pulses were obscured. Higher mental functions were intact. NEUROLOGIC: No lateralizing motor deficit was documented. LABORATORY DATA: Showed 10 hemoglobin, 5.2 white count. Chemistry was normal. BUN was 33, creatinine 1.2. BNP was 9904, bicarbonate of 33.9. Blood gas: 7.42 pH with a pCO2 of 50 and a pO2 of 81, this is on 32% FiO2 and her INR was 3.2 on Coumadin. H. pylori screen was negative. Chest x-ray showed left pneumonectomy. On questioning the patient, she did claim that she had her lung resected at least about 7-8 years ago and she said it was early cancer. She did not get any chemotherapy or radiation. Otherwise, there were no significant pulmonary congestive changes noted. IMAGING STUDIES: EKG shows a ventricular paced rhythm. She had no clear P waves noted. Very likely has atrial fibrillation with ventricular paced rhythm with broad QRS complex and it was about an 80-90. IMPRESSION: Significant pulmonary hypertension, right-sided heart failure, very likely biventricular failure, atrial fibrillation, lung cancer post left pneumonectomy, significant leg edema. RECOMMENDATIONS: At this time, we will probably get an echocardiogram, initiate low dose Dobutrex, Lasix 40 mg IV, Aldactone 12.5 mg daily, Lanoxin 0.25 mg IV, cut down the dose of Coreg to 6.25 mg twice a day, change her lisinopril to losartan 25 mg once a day. Clinical followup, get her records with her history of hypertension, diabetes, congestive heart failure and significant pulmonary hypertension, CAD status has to be established whether she has CAD or not. Very likely she has significant CAD. Post-ICD implant, it is a Biotronik device. We will have interrogation of the device and assess if she really had a VT episode. Dc Adan MD DR: MARYCARMEN/reanna JOB# [id number]
[2018-05-15] VITALS (52 sets, daily range): BP systolic 90–148; BP diastolic 36–78
[2018-05-15 05:29] LABS: BASOPHIL % 0.5 % (0.0-0.2); EOSINOPHIL # 0.2 10^3/uL (0.0-0.2); EOSINOPHIL % 3.1 % (0.0-5.0); HEMOGLOBIN 9.3 g/dL (12.0-15.0); LYMPHOCYTES # 0.9 10^3/uL (1.0-4.8); LYMPHOCYTES % 15.5 % (24.0-44.0); MEAN CELL HGB 27.4 pg (26-34); MEAN CELL HGB CONCENTRATION 29.1 g/dL (33-37); MEAN CORP VOLUME 94.4 fL (78-100); MEAN PLATELET VOLUME 10.4 fL (7.8-11.0); MONOCYTES # 0.7 10^3/uL (0.3-0.8); MONOCYTES % 12.2 % (5.0-12.0); NEUTROPHILS % 68.2 % (41.0-85.0); RED CELL DISTRIBUTION WIDTH 16.8 % (11.5-14.5); WHITE BLOOD CELL 5.8 10^3/uL (4.5-11.0)
[2018-05-15 06:06] LABS: CALCIUM 9.4 mg/dL (8.4-10.5); CARBON DIOXIDE 32.8 mmol/L (20.0-32)
--- NOTE | 2018-05-15 07:00 | NUR ---
REPORT TO AM SHIFT ENDORSED PT ACCORDINGLY
--- NOTE | 2018-05-15 07:00 | NUR ---
RECEIVED REPORT AND PATIENT CARE ASSUMED.
[2018-05-15 07:48] LABS: ABG PCO2 45.6 mmHg (35.0-45.0); ABG PH 7.432 (7.350-7.450); BE(B) 4.8 mmol/L (-2.0-2.0); HCO3act 29.7 mmol/L (22.0-26.0); pO2 69.6 mmHg (75.0-100.0)
[2018-05-15] MEDS: DUONEB 0.5 MG-3 MG/3 ML SOLN IH SCH ×3 (08:45→20:48)
[2018-05-15] MEDS: PULMICORT IH SCH ×2 (08:45→20:48)
[2018-05-15] MEDS: COZAAR PO SCH (09:00)
[2018-05-15] MEDS ORDERED: DOBUTREX IV SCH (09:00)
[2018-05-15] MEDS ORDERED: LASIX IV SCH (09:00)
[2018-05-15] MEDS ORDERED: D5W IV SCH (09:00)
[2018-05-15] MEDS ORDERED: ALDACTONE PO SCH (09:00)
[2018-05-15] MEDS: COREG PO SCH ×2 (09:42→20:59)
[2018-05-15] MEDS: LANOXIN PO SCH (09:42)
[2018-05-15] MEDS: KLOR-CON 10 PO SCH (09:43)
[2018-05-15] MEDS: DEMADEX PO SCH (09:43)
[2018-05-15] MEDS: PROTONIX PO SCH (09:43)
[2018-05-15] MEDS: ALDACTONE PO SCH (09:44)
--- NOTE | 2018-05-15 10:00 | NUR ---
DOBUTAMINE STOPPED PER DR ORDER.
--- NOTE | 2018-05-15 10:25 | NUR ---
DR. CASTELLON AT BEDSIDE DISCUSSING POC WITH PATIENT AND DAUGHTER.
--- NOTE | 2018-05-15 10:46 | NUR ---
DISCHARGE PLAN CASE MANAGEMENT VISITED WITH PATIENT AND FAMILY CONCERNING DISCHARGE PLAN AND NEEDS. PATIENT CURRENTLY LIVES AT HOME ALONE. [facility] HAS [facility] DME IN PLACE. PATIENT AND FAMILY HAVE STARTED PROCESS FOR PATIENT TO GO TO [facility] UPON DISCHARGE. CHOICE LETTER SIGNED AND PLACED IN CHART. DORIS SPOKE WITH ANYI AT [facility] ABOUT REFERRAL. DISCHARGE GOAL IS TO DISCHARGE TO [facility] PENDING APPROVAL . DENIES FURTHER NEEDS AT THIS TIME.
[2018-05-15] MEDS: DALIRESP PO SCH (11:44)
--- NOTE | 2018-05-15 13:00 | NUR ---
LYUDMILA LEFT IN FOR DIURESING AND STRICT I&O
--- NOTE | 2018-05-15 14:00 | NUR ---
TRANSFER TO MED/SURG PATIENT TRANSFERRED TO MED/SURG VIA WC ON PORTABLE O2 AT 3L/NC. PATIENT TRANSFERRED TO MED/SURG BED WITH STANDBY ASSIST. GAIT STEADY AND BALANCED, TRANSFER TAXING FOR PATIENT. INCREASE SOB WITH EXERTION. PATIENT LEFT SITTING IN HIGH FOWLERS WITH CALL LIGHT WITHIN EASY REACH. O2 AT 3L/NC. REPORT GIVEN TO JONATHAN DUMONT.
--- NOTE | 2018-05-15 14:12 | NUR ---
Report Report received from Victoria via telephone and SBAR. Patient alert and oriented settled into room 304 from ICU. Rogers in place, draining to gravity. 48 hours for erso tomorrow, 05-16-18.
--- NOTE | 2018-05-15 17:24 | ECHO ---
DATE OF SERVICE: 05/14/2018 History of congestive heart failure, cor pulmonale. Mitral valve shows mitral annular calcification and mitral regurgitation with 3 meters velocity and no A wave is documented. The patient is in atrial fibrillation. Aorta is sclerotic with a 6 mm gradient across the aorta with an aortic valve area of ____ square cm. Tricuspid valve shows tricuspid regurgitation, 4 meters velocity. Right ventricular systolic pressure 68 mm consistent with [id number] pulmonary hypertension, right ventricular enlargement of 3.5 cm and right atrium is normal in size. Left atrium is enlarged in 4-chamber view to 5.08 cm. Left ventricle is normal in size around 5.43 cm, end diastolic dimension 3.6 cm, end systolic dimension with concentric left ventricular hypertrophy with global hypokinesis on 2D with an ejection fraction of 32-35%. Hence, picture is consistent with global hypokinesis and cardiomyopathy with 32% of ejection ____ with evwarqzq-xm-ogokdz pulmonary hypertension and cor pulmonale with an aortic sclerosis and 2-3+ mitral regurgitation and grade 2 diastolic dysfunction and right ventricular enlargement. IVC is also dilated. Laxmichand MD Antionette DR: MARYCARMEN/reanna JOB# [id number]
[2018-05-15] MEDS: COUMADIN PO SCH ×2 (18:00→21:07)
[2018-05-15] MEDS ORDERED: COUMADIN ONE ×2 (18:08→20:50)
--- NOTE | 2018-05-15 20:34 | NUR ---
NOTIFIED DR CASTELLON OF PATIENT INR OF 3.3 AND ASKED IF NEEDED TO GIVE OR HOLD COUMADIN DOSE OF 2.5. ORDERED TO GIVE DOSE PER
--- NOTE | 2018-05-15 20:47 | PNH ---
DATE: 05/15/2018 SUBJECTIVE: The patient has improved, had received Dobutrex, has almost 3000 mL of urine output in the last 24 hours and got Lasix IV and has atrial fibrillation. Her device was set at rate of 60 and she was having 30% ventricular pacing with ____ outbound telemarketing representative came and cut it down to baseline rate of 40. She had received one shock, it was ____ response, not for VT. Her ejection fraction based on echo is about 35-40%, but she has severe COPD with 85-[id number]-ikjj history of smoking and has severe COPD with CO2 retention and she is a CO2 retainer. pH is compensated. Blood gas has improved. No definite pneumonic infiltration. Her overall cor pulmonale has improved. She is on Coumadin. INR is still 3. Coumadin reduced to 2.5, magnesium 1.7, started on Mag-Ox 400 mg twice a day. IMPRESSION: 1. Right-sided heart failure, chronic systolic heart failure, severe pulmonary hypertension, right ventricular systolic pressure of 68 mm. 2. Tricuspid regurgitation worsened by right ventricular pacing and hence device programmed to a rate of 40 right ventricular pacing. PLAN: At this time, we will transfer to the floor and optimize medical therapy, start on torsemide 40 mg once a day, Aldactone 25 mg once a day, may be a candidate for Entresto down the laron. Laxmichand MD Antionette DR: MARYCARMEN/reanna JOB# [id number]
[2018-05-15] MEDS: MAG-OX PO SCH (20:59)
[2018-05-15] MEDS: LIPITOR PO SCH (20:59)
--- NOTE | 2018-05-15 21:05 | NUR ---
DURING PASSING 2100 MEDICATIONS TO PATIENT, PT STATED THAT SHE HAD ALREADY RECEIVED HER COUMADIN DOSE FROM THE NURSE ON PREVIOUS SHIFT. DID NOT ADMINISTER MEDICATION.
[2018-05-16 00:31] VITALS: BP 113/74
[2018-05-16 04:15] VITALS: BP 116/62
[2018-05-16] MEDS: PULMICORT IH SCH ×2 (08:52→20:21)
[2018-05-16] MEDS: DUONEB 0.5 MG-3 MG/3 ML SOLN IH SCH ×3 (08:52→20:21)
[2018-05-16 08:53] VITALS: BP 146/73
[2018-05-16] MEDS: ALDACTONE PO SCH (09:45)
[2018-05-16] MEDS: COZAAR PO SCH (09:45)
[2018-05-16] MEDS: MAG-OX PO SCH ×2 (09:46→20:50)
[2018-05-16] MEDS: COREG PO SCH ×2 (09:46→20:50)
[2018-05-16] MEDS: LANOXIN PO SCH (09:46)
[2018-05-16] MEDS: KLOR-CON 10 PO SCH (09:46)
[2018-05-16] MEDS: DEMADEX PO SCH (09:46)
[2018-05-16] MEDS: DALIRESP PO SCH (09:46)
[2018-05-16] MEDS ORDERED: CARV6.252 PO (10:34)
[2018-05-16] MEDS ORDERED: LOSA25TA2 PO (10:34)
[2018-05-16] MEDS ORDERED: Ipratropium/Albuterol Sulfate IH (10:34)
[2018-05-16] MEDS ORDERED: ROFL500T PO (10:34)
[2018-05-16] MEDS ORDERED: SPIR25TA PO (10:34)
[2018-05-16] MEDS ORDERED: DIGO125T81 PO (10:34)
[2018-05-16] MEDS ORDERED: BUDE0.5A3 IH (10:34)
[2018-05-16] MEDS ORDERED: WARF2.5T PO (10:34)
[2018-05-16] MEDS ORDERED: ATOR20TA PO (10:34)
--- NOTE | 2018-05-16 13:36 | DSH ---
DATE OF DISCHARGE: 05/16/2018 FINAL DIAGNOSES: Cardiomyopathy, acute on chronic systolic heart failure, moderate to severe pulmonary hypertension, chronic obstructive pulmonary disease, cor pulmonale with significant right-sided heart failure, severe tricuspid regurgitation, atrial fibrillation of chronic nature with post-ICD implant, received a shock for atrial fibrillation with rapid ventricular response about 2 months ago and incorrectly programmed pacer resulting in worsening tricuspid regurgitation, baseline great, Biotronik device cut down to 40. The patient is intrinsic underlying atrial fibrillation with a ventricular response of 70-80 with narrow QRS complex, which helped ____ tricuspid regurgitation, history of hypertension and hypertensive heart disease, history of diabetes mellitus, on metformin, which was stopped. Please refer to my history and physical to the point of my impression. The patient is a 77-year-old white female who is a primary patient of Dr. Chen and Dr. Abbott in [place] and she has underlying COPD and right and left lung pneumonectomy for cancer and has congestive heart failure who had 35-38% ejection fraction of the left ventricle with significant right-sided chamber enlargement and severe tricuspid regurgitation and underlying atrial fibrillation, came with marked leg edema up to the mid-thigh region, was initially admitted in ICU, started on IV Dobutrex infusion followed by IV diuretics and her therapy was all changed and significant improvement is achieved and she is feeling much better and her blood gases have improved with a pH of 7.43 with a pCO2 of 45 and pO2 of 69 on 32% FiO2. She is on 2 liters nasal cannula and chest x-rays shows left pneumonectomy for cancer in 2003 and at the present time, she has been following with Dr. Abbott, would like to follow with me and Dr. Chen and she will see me back in [address] Chen next week and she will be on Lipitor 20 mg once a day, Pulmicort nebulizer treatment twice a day and Coreg 6.25 mg twice a day, Lanoxin 0.125 mg daily and DuoNeb nebulizer treatment 3 times a day, losartan 50 mg once a day and Daliresp 250 mcg once a day, Aldactone 25 mg once a day, Coumadin 2.5 mg once a day since she had hypoprothrombinemia, she was on 4 mg now and 2.5 mg once a day. Lasix 40 mg once a day, glipizide 5 mg twice a day. Stop her metformin because of CHF and Protonix 40 mg once a day, potassium 20 mEq once a day and we will see her back in the clinic in 2 weeks and oxygen 2 L nasal cannula. Laxmichand MD Antionette DR: MARYCARMEN/reanna JOB# [id number]
[2018-05-16] MEDS: PROTONIX PO SCH (13:37)
--- NOTE | 2018-05-16 14:10 | NUR ---
Rogers Catheter Drained 1950ml of clear yellow urine. Rogers catheter removed. Dorita care provided. Educated pt on DTV time. Pt able to verbalize understanding. Call light within reach.
[2018-05-16] MEDS ORDERED: DECADRON IV STA (14:26)
[2018-05-16 14:47] VITALS: BP 146/76
[2018-05-16] MEDS ORDERED: COUMADIN ONE (17:01)
[2018-05-16] MEDS: COUMADIN PO SCH (17:32)
[2018-05-16 20:30] VITALS: BP 134/68
[2018-05-16] MEDS: LIPITOR PO SCH (20:50)
[2018-05-17 01:11] VITALS: BP 130/70
[2018-05-17 05:41] VITALS: BP 132/65
[2018-05-17 08:13] VITALS: BP 125/62
[2018-05-17] MEDS: COREG PO SCH (08:26)
[2018-05-17] MEDS: KLOR-CON 10 PO SCH (08:26)
[2018-05-17] MEDS: DALIRESP PO SCH (08:26)
[2018-05-17] MEDS: MAG-OX PO SCH (08:26)
[2018-05-17] MEDS: ALDACTONE PO SCH (08:26)
[2018-05-17] MEDS: DEMADEX PO SCH (08:26)
[2018-05-17] MEDS: COZAAR PO SCH (08:26)
[2018-05-17] MEDS: LANOXIN PO SCH (08:27)
[2018-05-17] MEDS: PROTONIX PO SCH (08:28)
[2018-05-17] MEDS ORDERED: CELEBREX PO SCH (09:00)
[2018-05-17] MEDS: PULMICORT IH SCH (09:02)
[2018-05-17] MEDS: DUONEB 0.5 MG-3 MG/3 ML SOLN IH SCH ×2 (09:03→15:20)
[2018-05-17] MEDS ORDERED: CELE100C PO (12:01)
--- NOTE | 2018-05-17 12:30 | NUR ---
REPORT REPORT CALLED IN TO [facility]. SPOKE WITH Xavi AHUJA RN AND GAVE REPORT. SINKS GROVE WILL BROOMMAKER PT BETWEEN 3PM AND 4PM
[2018-05-17 12:50] VITALS: BP 142/73
[2018-05-17 16:15] VITALS: BP 138/48
[2018-05-17 16:34] VITALS: BP 138/48
--- NOTE | 2018-05-18 23:50 | PNH ---
DATE: 05/16/2018 SUBJECTIVE: The patient is a 77-year-old white female who came in with acute on chronic systolic heart failure, left ventricular dysfunction, global hypokinesis and cardiomyopathy along with underlying chronic atrial fibrillation and mild congestive heart failure, hypertension, COPD. She was admitted and optimization of medical therapy resulted in improvement in her CAF, but she was having severe pain in the left foot with redness, erythema and positive ____ and she is started on Celebrex 200 mg once a day along with Decadron 4 mg IV ____ and she was supposed to go on to the half-way ____ and acute episode of possible gout, discharge has been postponed to 05/17/2018. Dc Adan MD DR: MARYCARMEN/reanna JOB# [id number]
== END 2018-05-17 17:15 | DRG 292 ==
LOC: ER 10:26 → ICU 12:58 → MS 05-15 14:00
PROVIDERS: ADMIT Specialist; ATTEND Specialist
DX: I11.0 Hypertensive heart disease with heart failure (principal); D68.2 Hereditary deficiency of other clotting factors; E87.2 Acidosis; I50.23 Acute on chronic systolic (congestive) heart failure; I42.9 Cardiomyopathy, unspecified; I27.81 Cor pulmonale (chronic); E11.9 Type 2 diabetes mellitus without complications; I07.1 Rheumatic tricuspid insufficiency; M79.672 Pain in left foot; I48.2 Chronic atrial fibrillation; I27.29 Other secondary pulmonary hypertension; J44.9 Chronic obstructive pulmonary disease, unspecified; K21.9 Gastro-esophageal reflux disease without esophagitis; Z95.810 Presence of automatic (implantable) cardiac defibrillator; Z88.1 Allergy status to other antibiotic agents; Z79.01 Long term (current) use of anticoagulants; Z79.84 Long term (current) use of oral hypoglycemic drugs; Z79.899 Other long term (current) drug therapy; Z87.891 Personal history of nicotine dependence; Z82.49 Family history of ischemic heart disease and other diseases of the circulatory system; Z80.1 Family history of malignant neoplasm of trachea, bronchus and lung
CPT/HCPCS: 36415; 36600; 71046; 80053; 82550; 82803; 82948; 83735; 83880; 84484; 84550; 85025; 85379; 85610; 85730; 86677; 93005; 93307; 94640; 96374; 96375; 97161; 99285; A4338; G0378; J1100; J1160; J1250; J1940; J3480; J7040; J7620; J7627; 97116-GP; G8978-CJ; G8979-CJ; J8499

== ENCOUNTER → 2018-05-18 | Outpatient (CLI) | payer OTHER, MEDICAID ==
[~2018-05-18] MED LIST changes: +ATOR20TA PO; +BUDE0.5A3 IH; +CARV6.252 PO; +CELE100C PO; +DIGO125T81 PO; +Ipratropium/Albuterol Sulfate IH; +LOSA25TA2 PO; +ROFL500T PO; +SPIR25TA PO; +WARF2.5T PO
[2018-05-18 15:45] LABS: BASOPHIL # 0.1 10^3/uL (0.0-0.1); BASOPHIL % 0.7 % (0.0-0.2); EOSINOPHIL # 0.2 10^3/uL (0.0-0.2); HEMOGLOBIN 10.2 g/dL (12.0-15.0); LYMPHOCYTES # 1.1 10^3/uL (1.0-4.8); LYMPHOCYTES % 15.6 % (24.0-44.0); MEAN CELL HGB 27.4 pg (26-34); MEAN CELL HGB CONCENTRATION 29.1 g/dL (33-37); MEAN CORP VOLUME 94.4 fL (78-100); MEAN PLATELET VOLUME 10.9 fL (7.8-11.0); MONOCYTES % 14.4 % (5.0-12.0); NEUTROPHIL # 4.4 10^3/uL (1.8-7.7); NEUTROPHILS % 65.9 % (41.0-85.0); RED CELL DISTRIBUTION WIDTH 16.8 % (11.5-14.5); WHITE BLOOD CELL 6.7 10^3/uL (4.5-11.0)
[2018-05-18 16:16] LABS: CALCIUM 9.3 mg/dL (8.4-10.5); CARBON DIOXIDE 35.3 mmol/L (20.0-32)
== END | disposition home or self-care (01) ==
LOC: LAB 14:20
PROVIDERS: ATTEND Family Medicine
DX: I11.0 Hypertensive heart disease with heart failure (principal); I50.9 Heart failure, unspecified; E11.9 Type 2 diabetes mellitus without complications; K21.9 Gastro-esophageal reflux disease without esophagitis; Z79.899 Other long term (current) drug therapy
CPT/HCPCS: 80053; 83036; 84443; 85025; 85610; 85730

== ENCOUNTER → 2018-06-05 | Outpatient (CLI) | payer OTHER, MEDICAID | END | disposition home or self-care (01) | LOC: NPLAB 16:13 | PROVIDERS: ATTEND Family Medicine | DX: I11.0 Hypertensive heart disease with heart failure (principal); I50.33 Acute on chronic diastolic (congestive) heart failure; I48.91 Unspecified atrial fibrillation; Z95.0 Presence of cardiac pacemaker | CPT/HCPCS: 85610; 85730 ==

== ENCOUNTER → 2018-06-19 | Outpatient (CLI) | payer OTHER, MEDICAID ==
[2018-06-19 13:41] LABS: CALCIUM 9.2 mg/dL (8.4-10.5); CARBON DIOXIDE 34.8 mmol/L (20.0-32); DIGOXIN 1.08 ng/mL (0.90-2.00)
== END | disposition home or self-care (01) ==
LOC: LAB 12:54
PROVIDERS: ATTEND Family Medicine
DX: I11.0 Hypertensive heart disease with heart failure (principal); I50.33 Acute on chronic diastolic (congestive) heart failure; I48.91 Unspecified atrial fibrillation; Z95.0 Presence of cardiac pacemaker
CPT/HCPCS: 80053; 80162; 83880; 85610; 85730

== ENCOUNTER → 2018-07-07 | Outpatient (CLI) | payer OTHER, MEDICAID ==
[~2018-07-07] MED LIST changes: +DOCU-123 PO; +FURO-81 PO; +INSU100V SQ; +INSU100V8 SQ; +METO2.5T PO; +POLY17PO5 PO; +WARF5TAB PO
[2018-07-07 17:16] LABS: CALCIUM 9.8 mg/dL (8.4-10.5); CARBON DIOXIDE 39.5 mmol/L (20.0-32)
[2018-07-07 17:26] LABS: BASOPHIL % 0.6 % (0.0-0.2); EOSINOPHIL # 0.1 10^3/uL (0.0-0.2); EOSINOPHIL % 1.4 % (0.0-5.0); HEMOGLOBIN 12.2 g/dL (12.0-15.0); LYMPHOCYTES # 0.9 10^3/uL (1.0-4.8); LYMPHOCYTES % 12.6 % (24.0-44.0); MEAN CELL HGB 27.5 pg (26-34); MEAN CELL HGB CONCENTRATION 30.3 g/dL (33-37); MEAN PLATELET VOLUME 11.8 fL (7.8-11.0); MONOCYTES # 0.6 10^3/uL (0.3-0.8); MONOCYTES % 8.7 % (5.0-12.0); NEUTROPHIL # 5.4 10^3/uL (1.8-7.7); RED CELL DISTRIBUTION WIDTH 13.3 % (11.5-14.5); WHITE BLOOD CELL 7.1 10^3/uL (4.5-11.0)
== END | disposition home or self-care (01) ==
LOC: LAB 16:08
PROVIDERS: ATTEND Family Medicine
DX: I11.0 Hypertensive heart disease with heart failure (principal); I50.33 Acute on chronic diastolic (congestive) heart failure
CPT/HCPCS: 80053; 85025

== ENCOUNTER 2018-07-08 08:26 | Inpatient (IN) | payer OTHER, MEDICAID ==
[2018-07-08] VITALS (14 sets, daily range): BP systolic 123–149; BP diastolic 65–101
[~2018-07-08] VITALS: Ht 154.9 cm; Wt 71.4 kg
[~2018-07-08 08:26] MED LIST changes: -DOCU-123 PO; -FURO-81 PO; -INSU100V SQ; -INSU100V8 SQ; -METO2.5T PO; -POLY17PO5 PO; -WARF5TAB PO
[2018-07-08] MEDS ORDERED: LASIX IV STA (08:28)
[2018-07-08] MEDS ORDERED: DUONEB 0.5 MG-3 MG/3 ML SOLN IH STA (08:28)
[2018-07-08] MEDS ORDERED: DECADRON IH STA (08:28)
[2018-07-08] MEDS ORDERED: SOLU-MEDROL IV STA (08:28)
[2018-07-08] MEDS ORDERED: METO2.5T PO (08:39)
[2018-07-08] MEDS ORDERED: DOCU-123 PO (08:39)
[2018-07-08] MEDS ORDERED: FURO-81 PO (08:39)
[2018-07-08] MEDS ORDERED: WARF5TAB PO (08:39)
[2018-07-08] MEDS ORDERED: WARF2.5T PO (08:39)
[2018-07-08] MEDS ORDERED: POLY17PO5 PO (08:39)
[2018-07-08] MEDS ORDERED: DECADRON ONE (08:40)
[2018-07-08] MEDS ORDERED: DUONEB 0.5 MG-3 MG/3 ML SOLN IH ONE (08:40)
--- NOTE | 2018-07-08 08:40 | NUR ---
ARRIVAL PATIENT ARRIVED TO ED3 VIA GURNEY BY [facility], [facility] FOR [facility]FF[facility]ULT[facility] BREATH[facility] FOR THE PAST COUPLE OF DAYS, CONNECTED TO YEAST PUMPER AND VITAL SIGNS OBTAINED. NO DISTRESS NOTED. PATIENT IS COUGHING UP GREEN SPUTUM. DOES WERE OXYGEN AT 2L VIA N/C.
[2018-07-08] MEDS ORDERED: LASIX ONE (09:03)
[2018-07-08] MEDS ORDERED: SOLU-MEDROL ONE ×2 (09:03→13:46)
--- NOTE | 2018-07-08 09:09 | DIREP ---
PROCEDURE:CHEST 1 VIEW COMPARISON:[facility], CT, CT CHEST W/CONTRAST, 10/28/2016, 09:10 AM. [facility], CR, XRAY CHEST 2 VWS, 05/14/2018, 10:08 AM. [facility], CR, XRAY CHEST SINGLE VW, 04/26/2018, 04:31 PM. INDICATIONS:dyspnea, h/ o chf, FINDINGS: LUNGS/PLEURA:Volume loss in the left chest, surgical changes related to left pneumonectomy. No pneumothorax. VASCULATURE:Unremarkable pulmonary vasculature. No pulmonary edema. CARDIAC:Nonvisualization of the cardiac silhouette. MEDIASTINUM:No visible mass or adenopathy. BONES:No fracture or visible bony lesion. OTHER:Left chest defibrillator. Herniation of the right lung to the left side. CONCLUSION: 1. Right lung is without infiltrate. 2. Postoperative changes in the left chest related to left pneumonectomy, unchanged radiographically. Dictated by: Ale Todd MD on 07/08/2018 at 09:06 AM
[2018-07-08 09:31] LABS: BASOPHIL % 0.4 % (0.0-0.2); EOSINOPHIL # 0.1 10^3/uL (0.0-0.2); EOSINOPHIL % 1.5 % (0.0-5.0); HEMOGLOBIN 11.9 g/dL (12.0-15.0); LYMPHOCYTES # 1.4 10^3/uL (1.0-4.8); MEAN CELL HGB 28.1 pg (26-34); MEAN CELL HGB CONCENTRATION 30.9 g/dL (33-37); MEAN CORP VOLUME 90.8 fL (78-100); MEAN PLATELET VOLUME 10.7 fL (7.8-11.0); MONOCYTES # 0.8 10^3/uL (0.3-0.8); MONOCYTES % 8.6 % (5.0-12.0); NEUTROPHIL # 6.5 10^3/uL (1.8-7.7); NEUTROPHILS % 72.8 % (41.0-85.0); RED CELL DISTRIBUTION WIDTH 13.3 % (11.5-14.5)
--- NOTE | 2018-07-08 09:42 | NUR ---
STATUS PATIENT RESTING IN UPRIGHT POSITION,FAMILY AT BEDSIDE,DENIES NEEDS AT THIS TIME. AWAITING FINAL LAB RESULTS
[2018-07-08 10:00] LABS: CALCIUM 9.6 mg/dL (8.4-10.5); CARBON DIOXIDE 38.8 mmol/L (20.0-32)
[2018-07-08 10:01] LABS: ABG PCO2 70.5 mmHg (35.0-45.0); ABG PH 7.367 (7.350-7.450); BE(B) 11.4 mmol/L (-2.0-2.0); HCO3act 39.6 mmol/L (22.0-26.0); pO2 74.1 mmHg (75.0-100.0)
--- NOTE | 2018-07-08 10:01 | NUR ---
KESHAV MATTSON SPOKE WITH DOCTOR PARR ABOUT PATIENT, IF PATIENT NEEDS TO BE ADMITTED JUST GIVE HIM A CALL.
--- NOTE | 2018-07-08 10:44 | PCM.EKG ---
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 : 1940 Requested By: REYNALDO GREENE Order Number: [id number] Reading MD: Reynaldo Greene Measurements Intervals [place] Rate: 104 P: 102 [place]: 140 QRS: -64 QRSD: 114 T: 82 QT: 352 QTc: 462 Interpretive Statements Sinus tachycardia with occasional premature ventricular complexes Right bundle branch block Left anterior fascicular block Bifascicular block Abnormal ECG Compared to ECG 05/14/2018 11:04:33 Ventricular premature complex(es) now present Right bundle-branch block now present Left anterior fascicular block now present Bifascicular block now present Ventricular-paced complex(es) or rhythm no longer present Electronically Signed On 07-12-2018 13:14:21 MACHINE FITTER by Reynaldo Greene Please click the below link to view image of tracing.
--- NOTE | 2018-07-08 10:46 | ER.PDOC ---
General Chief Complaint: Dyspnea/Respdistress Stated Complaint: SOB Time seen by MD: 11:11 Source: patient, family, EMS, EMS notes reviewed, [facility] Exam Limitations: no limitations History of Present Illness Allergies: Coded Allergies: erythromycin base (Verified Allergy, Unknown, 02/12/18) Home Meds Active Scripts Insulin Lispro (HUMALOG) 100 Unit/1 Ml Vial, 0 UNIT SQ TIDM, #2 VIAL 3 Refills Prov:LUCAS PARR MD 07/11/18 Insulin Glargine,Hum.rec.anlog (LANTUS) 100 Unit/1 Ml Vial, 35 UNIT SQ DAILY, # 2 VIAL 3 Refills Prov:LUCAS PARR MD 07/11/18 Glipizide (GLIPIZIDE) 5 Mg Tablet, 2 TAB PO BID, #120 TAB 3 Refills Prov:LUCAS PARR MD 07/11/18 Celecoxib (CELEBREX) 100 Mg Capsule, 100 MG PO DAILY24 for 10 Days Prov:ARELI CASTELLON MD 05/17/18 Roflumilast (DALIRESP) 500 Mcg Tablet, 250 MCG PO DAILY for 30 Days, #30 TABLET Prov:ARELI CASTELLON MD 05/16/18 Budesonide (PULMICORT) 0.5 Mg/2 Ml Ampul.neb, 0.5 MG IH RTBID for 30 Days, #60 Prov:ARELI CASTELLON MD 05/16/18 Spironolactone 25MG (ALDACTONE 25MG) 25 Mg Tablet, 25 MG PO DAILY for 30 Days, # 30 TABLET Prov:ARELI CASTELLON MD 05/16/18 Losartan Potassium (COZAAR) 25 Mg Tablet, 50 MG PO DAILY for 30 Days, #30 TABLET Prov:ARELI CASTELLON MD 05/16/18 Digoxin (LANOXIN) 125 Mcg Tablet, 125 MCG PO DAILY for 30 Days, #30 TABLET Prov:ARELI CASTELLON MD 05/16/18 Carvedilol (CARVEDILOL) 6.25 Mg Tablet, 6.25 MG PO BID for 30 Days, #60 TABLET Prov:ARELI CASTELLON MD 05/16/18 Atorvastatin 20MG (LIPITOR 20MG) 20 Mg Tablet, 20 MG PO HS for 30 Days, #30 TABLET Prov:ARELI CASTELLON MD 05/16/18 [Ipratropium/Albuterol Sulfate] 3 ML AMPUL.NEB No Conflict Check, 3 ML IH RTTID for 30 Days, #90 Prov:ARELI CASTELLON MD 05/16/18 Reported Medications Docusate Sodium (COLACE) 100 Mg Capsule, 1 CAP PO BID, #60 CAP 07/08/18 Polyethylene Glycol 3350 (MIRALAX) 17 Gm Powd.pack, 1 PKT PO DAILY, #2 PKT 07/08/18 Metolazone (ZAROXOLYN) 2.5 Mg Tablet, 2.5 MG PO DAILY24, TABLET 07/08/18 Furosemide (LASIX) 20 Mg Tablet, 1 TAB PO DAILY, #90 TAB 3 Refills 07/08/18 Warfarin Sodium (COUMADIN) 5 Mg Tablet, 1 TAB PO MON,WED,FRI,SUN, #90 TAB 3 Refills 07/08/18 Warfarin Sodium (COUMADIN) 2.5 Mg Tablet, 1 TAB PO TUES,ASAD,SAT, #90 TAB 3 Refills 07/08/18 Potassium Chloride (POTASSIUM CHLORIDE) 20 Meq Tab.er.prt, 1 TAB PO DAILY, #90 TAB 3 Refills 05/14/18 Pantoprazole Sodium (PANTOPRAZOLE SODIUM) 40 Mg Tablet.dr, 40 MG PO DAILY24 02/12/18 Discontinued Reported Medications Furosemide (FUROSEMIDE) 40 Mg Tablet, 1 TAB PO DAILY, #90 TAB 3 Refills 05/14/18 Discontinued Scripts Warfarin Sodium (COUMADIN) 2.5 Mg Tablet, 2.5 MG PO 17 for 30 Days, #30 TABLET Prov:ARELI CASTELLON MD 05/16/18 Past Medical History Medical History: cardiac problems, congestive heart failure, COPD, diabetes, GERD Surgical History: pacemaker/ICD, other Social History Smoking: non-smoker Alcohol Use: none Drug Use: none Review of Systems Constitutional: no symptoms reported EENTM: no symptoms reported Respiratory: cough, orthopnea, shortness of breath All Other Systems: Reviewed and Negative Physical Exam General Appearance: No Apparent Distress, WD/WN HEENT: PERRL/EOMI, Normal ENT Inspection, TMs Normal, Pharynx Normal Neck: Non-Tender, Full Range of Motion, Supple, Normal Inspection Respiratory: prolonged expirations, rales, retractions Cardiovascular: Tachycardia Gastrointestinal: Normal Bowel Sounds, No Organomegaly, No Pulsatile Mass, Non Tender, Soft Extremities: Pedal Edema Neurologic/Psychiatric: quality tester II-XII NML as Tested, No Motor/Sensory Deficits, Alert, Normal Mood/Affect, Oriented x 3 Skin: Normal Color, Warm/Dry Lymphatic: No Adenopathy Results/Orders Results/Orders Laboratory Tests Test 07/08/18 09:20 07/08/18 09:50 White Blood Count 9.0 10^3/uL (4.5-11.0) Red Blood Count 4.24 10^6/uL (4.00-5.20) Hemoglobin 11.9 g/dL (12.0-15.0) Hematocrit 38.5 % (36.0-46.0) Mean Corpuscular Volume 90.8 fL (78-100) Mean Corpuscular Hemoglobin 28.1 pg (26-34) Mean Corpuscular Hemoglobin Concent 30.9 g/dL (33-37) Red Cell Distribution Width 13.3 % (11.5-14.5) Platelet Count 171 10^3/uL (150-400) Mean Platelet Volume 10.7 fL (7.8-11.0) Neutrophils (%) (Auto) 72.8 % (41.0-85.0) Lymphocytes (%) (Auto) 16.0 % (24.0-44.0) Monocytes (%) (Auto) 8.6 % (5.0-12.0) Neutrophils # (Auto) 6.5 10^3/uL (1.8-7.7) Lymphocytes # (Auto) 1.4 10^3/uL (1.0-4.8) Monocytes # (Auto) 0.8 10^3/uL (0.3-0.8) Absolute Immature Granulocyte (auto 0.06 10^3 u/L (0-2) Eosinophils % 1.5 % (0.0-5.0) Basophils % 0.4 % (0.0-0.2) Basophils # 0.0 10^3/uL (0.0-0.1) Eosinophil Count 0.1 10^3/uL (0.0-0.2) Sodium Level 136 mmol/L (132-145) Potassium Level 4.9 mmol/L (3.6-5.2) Chloride Level 93.0 mmol/L (96-109) Carbon Dioxide Level 38.8 mmol/L (20.0-32) Anion Gap 9.1 Blood Urea Nitrogen 12 mg/dL (7-18) Creatinine 1.02 mg/dL (0.59-1.40) Estimated GFR () 63.8 (>/=60) BUN/Creatinine Ratio 11.0 Glucose Level 230 mg/dL (70-110) Calcium Level 9.6 mg/dL (8.4-10.5) Total Bilirubin 0.4 mg/dL (0.2-1.0) Aspartate Amino Transf (AST/SGOT) 22 U/L (0-35) Alanine Aminotransferase (ALT/SGPT) 20 U/L (12-78) Alkaline Phosphatase 73 U/L (50-136) Total Creatine Kinase 60 U/L (26-192) Troponin I 0.06 ng/mL (0.00-0.05) Pro-B-Type Natriuretic Peptide 2033 pg/mL (0-450) Total Protein 7.0 g/dL (6.4-8.2) Albumin 3.2 g/dL (3.4-5.0) Globulin 3.8 Digoxin Level 1.02 ng/mL (0.90-2.00) Percent Immature Gran (Cell Imm) 0.70 % (0.00-0.50) Helicobacter pylori Screen NEGATIVE (NEGATIVE) Blood Gas Sample Site RT BRACIAL ARTERY Blood Gas pH 7.367 (7.350-7.450) Blood Gas PCO2 70.5 mmHg (35.0-45.0) Blood Gas PO2 74.1 mmHg (75.0-100.0) Blood Gas HCO3 39.6 mmol/L (22.0-26.0) Blood Gas Base Excess 11.4 mmol/L (-2.0-2.0) Jaswinder Test POSITIVE Arterial Blood Oxygen Saturation 94.9 % (95-) Deoxyhemoglobin 5.0 % (0.2-0.6) Carboxyhemoglobin 1.2 % (0.5-1.5) Methemoglobin 0.4 % (0.2-0.6) Total Hemoglobin 12.9 % (13.5-17.5) Total Oxygen Concentration 17.0 % (13.5-17.5) Lactic Acid (Blood Gas) 0.9 MMOL/L (0.5-1.0) Blood Gas Temperature 37 FiO2 32 % (20-101) Bicarbonate 41.7 mmol/L (23-27) Microbiology Date/Time Source Procedure Growth Status 07/08/18 09:20 Blood Blood Culture - Preliminary NO GROWTH AFTER 1 DAY Resulted EKG/XRAY/CT/US EKG: NSR Consult/PCP Time Consult/PCP Called: 14:00 Consult/PCP: dr parr Course Sepsis Screening Results: Posi: NEGATIVE Sepsis Qualifier/Stage: NO DEFINITE RISK Duration or Total Time Spent w: 2 hrs Vitals & review Data Vital Sign - Last 24 Hours 07/08/18 07/08/18 07/08/18 07/08/18 08:28 08:28 08:31 08:51 Temp 98.3 98.3 98.3 98.3 98.3 98.3 Pulse 89 89 89 102 Resp 20 20 20 28 B/P (MAP) 138/78 (98) Pulse Ox 95 95 97 O2 Delivery Nasal Canula Nasal Canula O2 Flow Rate 2.00 07/08/18 07/08/18 07/08/18 07/08/18 08:52 08:56 09:21 09:26 Pulse 96 82 81 Resp 30 B/P (MAP) 140/87 Pulse Ox 98 95 96 07/08/18 07/08/18 07/08/18 07/08/18 09:56 09:59 10:15 10:26 Pulse 95 91 B/P (MAP) 149/99 (116) 149/70 (96) Pulse Ox 96 90 07/08/18 07/08/18 07/08/18 07/08/18 10:30 10:45 10:56 11:00 Pulse 96 B/P (MAP) 134/79 (97) 135/101 (112) 138/100 (113) Pulse Ox 87 07/08/18 07/08/18 07/08/18 07/08/18 11:15 11:26 11:30 11:38 Pulse 96 94 Resp 22 B/P (MAP) 148/81 (103) 123/76 (92) Pulse Ox 89 91 O2 Delivery S/T FiO2 30 07/08/18 07/08/18 11:41 11:46 Resp 25 B/P (MAP) 144/73 (96) Pulse Ox 91 Laboratory Tests Test 07/08/18 09:20 07/08/18 09:50 White Blood Count 9.0 10^3/uL Red Blood Count 4.24 10^6/uL Hemoglobin 11.9 g/dL Hematocrit 38.5 % Mean Corpuscular Volume 90.8 fL Mean Corpuscular Hemoglobin 28.1 pg Mean Corpuscular Hemoglobin Concent 30.9 g/dL Red Cell Distribution Width 13.3 % Platelet Count 171 10^3/uL Mean Platelet Volume 10.7 fL Neutrophils (%) (Auto) 72.8 % Lymphocytes (%) (Auto) 16.0 % Monocytes (%) (Auto) 8.6 % Neutrophils # (Auto) 6.5 10^3/uL Lymphocytes # (Auto) 1.4 10^3/uL Monocytes # (Auto) 0.8 10^3/uL Absolute Immature Granulocyte (auto 0.06 10^3 u/L Eosinophils % 1.5 % Basophils % 0.4 % Basophils # 0.0 10^3/uL Eosinophil Count 0.1 10^3/uL Sodium Level 136 mmol/L Potassium Level 4.9 mmol/L Chloride Level 93.0 mmol/L Carbon Dioxide Level 38.8 mmol/L Anion Gap 9.1 Blood Urea Nitrogen 12 mg/dL Creatinine 1.02 mg/dL Estimated GFR () 63.8 BUN/Creatinine Ratio 11.0 Glucose Level 230 mg/dL Calcium Level 9.6 mg/dL Total Bilirubin 0.4 mg/dL Aspartate Amino Transf (AST/SGOT) 22 U/L Alanine Aminotransferase (ALT/SGPT) 20 U/L Alkaline Phosphatase 73 U/L Total Creatine Kinase 60 U/L Troponin I 0.06 ng/mL Pro-B-Type Natriuretic Peptide 2033 pg/mL Total Protein 7.0 g/dL Albumin 3.2 g/dL Globulin 3.8 Digoxin Level 1.02 ng/mL Percent Immature Gran (Cell Imm) 0.70 % Helicobacter pylori Screen NEGATIVE Blood Gas Sample Site RT BRACIAL ARTERY Blood Gas pH 7.367 Blood Gas PCO2 70.5 mmHg Blood Gas PO2 74.1 mmHg Blood Gas HCO3 39.6 mmol/L Blood Gas Base Excess 11.4 mmol/L Jaswinder Test POSITIVE Arterial Blood Oxygen Saturation 94.9 % Deoxyhemoglobin 5.0 % Carboxyhemoglobin 1.2 % Methemoglobin 0.4 % Total Hemoglobin 12.9 % Total Oxygen Concentration 17.0 % Lactic Acid (Blood Gas) 0.9 MMOL/L Blood Gas Temperature 37 FiO2 32 % Bicarbonate 41.7 mmol/L Sepsis Infection Criteria Pres: None LEVEL 1 SEPSIS INFECTION CRITE: Cough/Shortness of Breath LEVEL 2-SIRS (LIST ALL THAT AP: HR>90/min Cardiovascular Evidence: Not Assessed or None Hematologic Evidence: None/Not assessed Hepatic Evidence: None/Not assessed Metabolic Evidence: None/Not assessed Neurological Evidence: None/Not assessed Respiratory Evidence: Need for O2 to keep>90% Renal Evidence: None/Not assessed O2 Sat by Pulse Oximetry: 98 Oxygen Flow Rate: 2.00 Departure Time of Disposition: 14:00 Disposition: 09 ADMITTED INPATIENT Impression: Primary Impression: Chronic obstructive pulmonary disease Condition: Improved Referrals: LUCAS PARR MD (PCP) PRIMARY CARE PROVIDER Scripts Insulin Lispro (HUMALOG) 100 Unit/1 Ml Vial 0 UNIT SQ TIDM, #2 VIAL 3 Refills Prov: LUCAS PARR MD 07/11/18 Insulin Glargine,Hum.rec.anlog (LANTUS) 100 Unit/1 Ml Vial 35 UNIT SQ DAILY, #2 VIAL 3 Refills Prov: LUCAS PARR MD 07/11/18 Glipizide (GLIPIZIDE) 5 Mg Tablet 2 TAB PO BID, #120 TAB 3 Refills Prov: LUCAS PARR MD 07/11/18 Duration or Time Spent with Pa: 2 hrs RORO MATTSON MD Jul 08, 2018 10:45
--- NOTE | 2018-07-08 11:07 | NUR ---
KESHAV MATTSON ON THE PHONE WITH DOCTOR PARR, WILL ADMIT PATIENT TO MED SURG
[2018-07-08] MEDS ORDERED: DUONEB 0.5 MG-3 MG/3 ML SOLN IH SCH (12:00)
--- NOTE | 2018-07-08 12:30 | NUR ---
ARRIVAL Pt ARRIVED TO THE UNIT IN ROOM 303 FROM ER , IN STRETCHER. Pt WAS PLACED IN BIPAP BY RT ELIZABETH. REOREINTED Pt TO ROOM, CALL SALDIVAR. REENFORCED Pt TO USE CALL SALDIVAR, Pt VERBALIZED UNDERSTATING,BED IN LOW POSITION, CALL SALDIVAR JWITHIN REACH.
[2018-07-08] MEDS: PROTONIX PO SCH (13:26)
[2018-07-08] MEDS ORDERED: XOPENEX IH PRN (13:30)
--- NOTE | 2018-07-08 13:55 | HPH ---
ADMIT DATE: 07/08/2018 The patient is being placed as an inpatient to [facility] / [facility]. PRIMARY CARE PHYSICIAN: Carla Chen MD ADMITTING DIAGNOSES: Acute hypercapnic respiratory failure with underlying chronic obstructive pulmonary disease, cardiomyopathy with chronic systolic and diastolic congestive heart failure with hypertension, type 2 diabetes mellitus, atrial fibrillation, pulmonary hypertension. CHIEF COMPLAINT: Hard time breathing and shortness of breath. HISTORY OF PRESENT ILLNESS: The patient is a 77-year-old female who resides at [facility], and she started to have increasing breathing problems for a couple of days now. Unknown sick contacts reported. She has not recently traveled. She denies any fevers. No chills during this time, it is just that she was having a hard time breathing as the days went on. Her O2 was bumped up to 3 liters and today, she started to have significant respiratory distress. She was brought to the ER, where she was found to have hypercapnic respiratory failure and was started on BiPAP. No chest pains reported. No abdominal pains, no diarrhea, no constipation, no lethargy. No syncope reported. No dysuria reported. PAST MEDICAL HISTORY: Significant for COPD. She did have a prior lung cancer and a left pneumonectomy. She does have pulmonary hypertension with cardiomyopathy and chronic systolic and diastolic congestive heart failure with an EF down to about 30%. She does have history of atrial fibrillation as well too and type 2 diabetes mellitus. ALLERGIES: ERYTHROMYCIN. SOCIAL HISTORY: She does not currently smoke. No drugs, no alcohol reported. PAST SURGICAL HISTORY: She has had left pneumonectomy for lung cancer, colonoscopy, tonsillectomy. She does have an ICD. FAMILY HISTORY: Asked and noncontributory for this admission. MEDICATIONS: She is on include Daliresp, Pulmicort breathing treatments, Aldactone, losartan, digoxin, Coreg, Lipitor, DuoNeb treatments, Zaroxolyn, Lasix, warfarin, potassium, Protonix, glipizide. PHYSICAL EXAMINATION: VITAL SIGNS: When she first came to the ER, temperature is 98.3, pulse rate was erratic from 70-102, blood pressure was 138/78, O2 sat 95%. My physical exam is as follows: When I saw her, she had just been placed on BiPAP and now she is back on nasal cannula, receiving a breathing treatment. ENT: Oropharynx is clear. No maxillary sinus tenderness. GENERAL: She is awake and alert, talking to me and answering questions appropriately. NECK: Supple. HEART: S1, S2 audible. LUNGS: She had no breath sounds to the left side. She had adequate breath sounds to the right side. No wheezing. ABDOMEN: Good bowel sounds, soft abdomen, no rebound, no guarding, no masses. EXTREMITIES: She has some mild edema to her legs, 1+ distal pulses are noted. SKIN: Warm and dry. LABORATORY DATA: Labs were obtained. White count was 9000, hemoglobin of 11.9 and platelet count of 171. Blood gas showed a pH of 7.37, pCO2 of 71, pO2 of 74, bicarbonate of 40. Lactic acid level was 0.9. Chemistry panel showed a sodium 136, potassium 4.9, chloride 93, BUN 12, creatinine 1, bicarbonate of 42. Glucose of 230. Troponin I was 0.06. ProBNP was 2033. LFTs were normal. Albumin is 3.2. Digoxin level was 1.02. H. pylori screen was negative. Chest x-ray did not show any acute infiltrates on the right side. ASSESSMENT: We have this [facility] resident with acute hypercapnic respiratory failure with underlying chronic obstructive pulmonary disease, cardiomyopathy with chronic systolic and diastolic congestive heart failure, diabetes, and hypertension. I will continue breathing treatments on her, wean her O2 as tolerated. Continue BiPAP as needed in the hospital. Continue her cardiac medications and follow her in the hospital and see how she does over the next 48 hours. Carla Chen MD DR: AUGUSTO/reanna JOB# [id number]
[2018-07-08] MEDS ORDERED: SOLU-MEDROL IV SCH ×2 (14:00)
--- NOTE | 2018-07-08 16:27 | NUR ---
CRITICAL LAB BS [address] PARR VIA TELEPHONE RECEIVED AN ORDER FOR HUMALOG MODERATE SS, ORDERED STAT GLUCOSE.
[2018-07-08] MEDS ORDERED: DEXTROSE 50%-WATER SYRINGE IV PRN (16:30)
[2018-07-08] MEDS: DUONEB 0.5 MG-3 MG/3 ML SOLN IH SCH ×2 (16:35→20:08)
[2018-07-08] MEDS: HUMALOG SQ SCH (16:38)
--- NOTE | 2018-07-08 17:36 | NUR ---
CRITICAL LAB BS LAB 538, [place] BS [address] PARR VIA TELEPHONE AND ADMINISTERED SCHEDULE GLIPIZIDE 5 MG PO.
[2018-07-08] MEDS: GLUCOTROL PO SCH (17:50)
--- NOTE | 2018-07-08 19:15 | NUR ---
CRITICAL LAB BS LAB [address] PARR VIA TELEPHONE received an order for stat 18 units of humalog one time administered med.
--- NOTE | 2018-07-08 19:15 | NUR ---
bedside report given tto night nurse germaine padilla.
[2018-07-08] MEDS ORDERED: HUMALOG SQ ONE (19:30)
[2018-07-08] MEDS: PULMICORT IH SCH (20:08)
[2018-07-08] MEDS: LIPITOR PO SCH (20:28)
[2018-07-08] MEDS: COREG PO SCH (20:28)
[2018-07-08] MEDS: COLACE PO SCH (20:28)
[2018-07-08] MEDS: SOLU-MEDROL IV SCH (21:45)
[2018-07-08] MEDS ORDERED: HUMALOG SQ STA (22:38)
--- NOTE | 2018-07-08 22:56 | NUR ---
DR. PARR WAS NOTIFIED OF PT BLOOD SUGAR 382. ONE TIME ORDER OF HUMALOG 15 UNITS ORDERED AND GIVEN.
[2018-07-09 04:18] VITALS: BP 138/74
[2018-07-09] MEDS: SOLU-MEDROL IV SCH (05:50)
--- NOTE | 2018-07-09 06:34 | NUR ---
RECEIVED REPORT, ASSUMED CARE OF PT.
[2018-07-09 07:48] VITALS: BP 152/79
[2018-07-09] MEDS: HUMALOG SQ SCH ×3 (08:00→17:24)
[2018-07-09] MEDS: GLUCOTROL PO SCH ×2 (08:00→17:38)
[2018-07-09 08:04] LABS: ABG PCO2 56.2 mmHg (35.0-45.0); ABG PH 7.437 (7.350-7.450); BE(B) 10.9 mmol/L (-2.0-2.0); HCO3act 37.1 mmol/L (22.0-26.0); pO2 56.5 mmHg (75.0-100.0)
[2018-07-09] MEDS: DUONEB 0.5 MG-3 MG/3 ML SOLN IH SCH ×4 (08:29→20:56)
[2018-07-09] MEDS: PULMICORT IH SCH ×2 (08:29→20:56)
[2018-07-09] MEDS: COUMADIN PO SCH (09:00)
[2018-07-09] MEDS: MIRALAX PO SCH (09:00)
[2018-07-09] MEDS: DALIRESP PO SCH (09:00)
[2018-07-09] MEDS: COLACE PO SCH ×2 (09:54→21:06)
[2018-07-09] MEDS: ALDACTONE PO SCH (09:54)
[2018-07-09] MEDS: LASIX PO SCH (09:55)
[2018-07-09] MEDS: COZAAR PO SCH (09:56)
[2018-07-09] MEDS: COREG PO SCH ×2 (09:56→21:06)
[2018-07-09] MEDS: LANOXIN PO SCH (09:57)
[2018-07-09 11:36] VITALS: BP 139/70
--- NOTE | 2018-07-09 12:21 | NUR ---
BLOOD GLUCOSE 405, DR PARR NOTIFIED, 15U HUMALOG GIVEN.
[2018-07-09] MEDS: PROTONIX PO SCH (14:30)
[2018-07-09 16:39] VITALS: BP 160/85
--- NOTE | 2018-07-09 18:48 | NUR ---
REPORT GIVEN TO ONCOMING SHIFT.
[2018-07-09 19:25] VITALS: BP 118/55
--- NOTE | 2018-07-09 20:18 | NUR ---
CRITICAL BLOOD GLUCOSE OF 516, LAB NOTIFIED FOR STAT GLUCOSE, LAB RESULTS 559. DR PARR NOTIFIED NEW ORDER 18 UNITS HUMALOG TO BE GIVEN
[2018-07-09] MEDS ORDERED: HUMALOG SQ ONE (20:30)
[2018-07-09] MEDS: LIPITOR PO SCH (21:06)
[2018-07-09 23:34] VITALS: BP 111/61
[2018-07-10 04:15] VITALS: BP 115/62
--- NOTE | 2018-07-10 05:11 | NUR ---
PT REQUESTED TO REMOVE BIPAP, NC AT 2.5 L ON PT AT THIS TIME
[2018-07-10] MEDS ORDERED: TORADOL IV STA (05:51)
--- NOTE | 2018-07-10 06:00 | NUR ---
Pt c/o pain 02/22 to bridge of nose from pap, Dr. Chen notified received new order toradol 30mg IV x1
--- NOTE | 2018-07-10 06:18 | NUR ---
REPORT TO JONATHAN DUMONT
[2018-07-10] MEDS: HUMALOG SQ SCH ×3 (07:03→18:00)
--- NOTE | 2018-07-10 07:16 | NUR ---
Report Assumed care of patient after report received from Kate WARD at shift change.
[2018-07-10 07:30] VITALS: BP 138/68
[2018-07-10] MEDS: DUONEB 0.5 MG-3 MG/3 ML SOLN IH SCH ×4 (08:23→20:12)
[2018-07-10] MEDS: PULMICORT IH SCH ×2 (08:24→20:12)
[2018-07-10] MEDS: DALIRESP PO SCH (09:00)
[2018-07-10] MEDS: MIRALAX PO SCH (09:00)
[2018-07-10] MEDS: ALDACTONE PO SCH (09:36)
[2018-07-10] MEDS: COZAAR PO SCH (09:36)
[2018-07-10] MEDS: LASIX PO SCH (09:37)
[2018-07-10] MEDS: LANOXIN PO SCH (09:37)
[2018-07-10] MEDS: COREG PO SCH ×2 (09:37→21:52)
[2018-07-10] MEDS: COUMADIN PO SCH ×2 (09:40→11:05)
[2018-07-10] MEDS: GLUCOTROL PO SCH ×2 (09:46→17:00)
[2018-07-10] MEDS: COLACE PO SCH ×2 (09:46→21:52)
[2018-07-10] MEDS ORDERED: LANTUS SQ SCH (11:00)
--- NOTE | 2018-07-10 11:15 | PRM.PN ---
Subjective Subjective Date: Jul 10, 2018 Time: 11:00 Subjective Pt breathing better; she had Qs about her COPD and heart issues Patient History: Congestive heart failure (parents) Hypertension (paretns ) VTE VTE Risk Total Score: 3 VTE Risk Score VTE Risk: Score 0-1 = Low Risk (Aggressive mobilization; early ambulation; no VTE prophylaxis required) Score 2: Moderate Risk (Intermittent/Pneumatic Compression Device OR Lovenox/Heparin/Coumadin) Score 3-4: High Risk (Intermittent/Pneumatic Compression Device AND Lovenox/Heparin/Coumadin) Score > or =5: Highest Risk (Intermittent/Pneumatic Compression Device AND Lovenox/Heparin/Coumadin) Antico:Hep/LMWH/Coum/Xarelto: Yes Mechanical device ordered: Yes Review of Systems Constitutional: No: Fever, Chills, Sweats Eyes: No: Pain, Vision change, Conjunctivae inflammation ENT: No: Ear pain, Ear discharge, Nose pain Respiratory: Cough, SOB with excertion Cardiovascular: No: Chest Pain, Palpitations, Orthopnea, Paroxysmal Noc. Dyspnea Gastrointestinal: No: Nausea, Vomiting, Abdominal Pain, Diarrhea Genitourinary: No Dysuria, No Frequency, No Incontinence Musculoskeletal: No: neck pain, shoulder pain, arm pain, back pain Skin: No: Rash, Lesions, Jaundice, Bruising Neurological: Weakness; No: Numbness, Change in speech, Confusion, Seizures Allergies: Coded Allergies: erythromycin base (Verified Allergy, Unknown, 02/12/18) Scheduled Atorvastatin 20MG (Lipitor 20MG), 20 MG PO HS Budesonide (Pulmicort), 0.5 MG IH RTBID Carvedilol (Carvedilol), 6.25 MG PO BID Celecoxib (Celebrex), 100 MG PO DAILY24 Digoxin (Lanoxin), 125 MCG PO DAILY Docusate Sodium (Colace), 1 CAP PO BID, (Reported) Furosemide (Lasix), 1 TAB PO DAILY, (Reported) Glipizide (Glipizide), 1 TAB PO BID, (Reported) Losartan Potassium (Cozaar), 50 MG PO DAILY Metolazone (Zaroxolyn), 2.5 MG PO DAILY24, (Reported) Pantoprazole Sodium (Pantoprazole Sodium), 40 MG PO DAILY24, (Reported) Polyethylene Glycol 3350 (Miralax), 1 PKT PO DAILY, (Reported) Potassium Chloride (Potassium Chloride), 1 TAB PO DAILY, (Reported) Roflumilast (Daliresp), 250 MCG PO DAILY Spironolactone 25MG (Aldactone 25MG), 25 MG PO DAILY Warfarin Sodium (Coumadin), 1 TAB PO TUES,ASAD,SAT, (Reported) Warfarin Sodium (Coumadin), 1 TAB PO MON,WED,FRI,SUN, (Reported) [Ipratropium/Albuterol Sulfate], 3 ML IH RTTID Discontinued Medications Furosemide (Furosemide), 1 TAB PO DAILY, (Reported) Discontinued Reason: Discontinue Warfarin Sodium (Coumadin), 2.5 MG PO 17 Discontinued Reason: Discontinue Objective Vitals and I/O Vital Sign - Last 24 Hours 07/08/18 07/08/18 07/08/18 07/08/18 12:30 12:50 12:58 13:06 Temp 98.5 98.5 Pulse 97 93 93 Resp B/P (MAP) 148/93 (111) Pulse Ox 98 93 93 O2 Delivery Bi Pap Nasal Cannula O2 Flow Rate 1.00 07/08/18 07/08/18 07/08/18 07/08/18 16:26 16:28 16:36 17:51 Temp 98.3 98.3 Pulse 105 105 105 97 Resp B/P (MAP) 144/76 (98) Pulse Ox 94 94 96 93 O2 Delivery Nasal Cannula Nasal Canula O2 Flow Rate 2.00 2.00 FiO2 28 07/08/18 07/08/18 07/08/18 07/08/18 19:15 20:09 20:10 20:25 Temp 97.3 97.3 Pulse 103 96 96 Resp 20 B/P (MAP) 132/65 (87) Pulse Ox 95 90 92 O2 Delivery Nasal Cannula Nasal Canula O2 Flow Rate 2.00 07/08/18 07/08/18 07/08/18 07/09/18 20:28 23:43 23:48 03:38 Temp 98.2 98.2 Pulse 96 103 78 99 Resp B/P (MAP) 132/65 141/78 (99) Pulse Ox 93 90 92 O2 Delivery S/T Bi Pap S/T FiO2 25 25 07/09/18 07/09/18 07/09/18/24/19 04:18 07:12 07:48 08:30 Temp 97.9 98.3 97.9 98.3 Pulse 84 83 84 Resp 23 22 20 B/P (MAP) 138/74 (95) 152/79 (103) Pulse Ox 90 91 90 O2 Delivery Nasal Canula Nasal Cannula Nasal Canula Nasal Cannula O2 Flow Rate 2.00 2.00 2.00 FiO2 28 07/09/18 07/09/18 07/09/18 07/09/18 08:32 08:37 09:54 09:55 Pulse 100 106 Resp 23 20 B/P (MAP) 138/74 152/79 Pulse Ox 90 93 07/09/18 07/09/18 07/09/18 09:56 09:56 11:36 Temp 98.4 98.4 Pulse 83 74 Resp 20 B/P (MAP) 152/79 152/79 139/70 (93) Pulse Ox 90 O2 Delivery Nasal Canula O2 Flow Rate 2.00 Intake and Output 07/08/18 07/08/18 07/09/18 15:00 23:00 07:00 Intake Total 200 ml 460 ml Output Total 250 ml 550 ml 600 ml Balance -250 ml -350 ml -140 ml General: Alert, Oriented X3, Cooperative, No acute distress HEENT: Atraumatic, PERRLA Neck: Supple, No thyromegaly, +2 carotid pulse wo bruit, No LAD Lungs: Other (decreased BS) Heart: Normal S1, Normal S2 Abdomen: Normal bowel sounds, Soft Extremities: No clubbing, No cyanosis Skin: No breakdown, No significant lesion Neuro: Normal speech Psych/Mental Status: Mental status NL, Mood NL All Results(Lab/Rad) Laboratory Tests Test 07/08/18 16:35 07/08/18 18:30 07/09/18 07:00 Glucose Level 538 mg/dL 553 mg/dL Blood Gas Sample Site RT BRACIAL ARTERY Blood Gas pH 7.437 Blood Gas PCO2 56.2 mmHg Blood Gas PO2 56.5 mmHg Blood Gas HCO3 37.1 mmol/L Blood Gas Base Excess 10.9 mmol/L Jaswinder Test N/A Arterial Blood Oxygen Saturation 88.8 % Deoxyhemoglobin 11.0 % Carboxyhemoglobin 1.3 % Methemoglobin 0.2 % Total Hemoglobin 12.7 % Total Oxygen Concentration 15.6 % Lactic Acid (Blood Gas) 1.1 MMOL/L Blood Gas Temperature 37 Oxygen Delivery Method (LAB) NASAL CANNULA FiO2 28 % Bicarbonate 38.8 mmol/L Current Medications Medications (Trade) Dose Ordered Sig/Jose Route PRN Reason Start Time Stop Time Status Last Admin Dose Admin Furosemide (Lasix) 40 mg STAT STAT IV 07/08/18 08:28 07/08/18 08:29 DC 07/08/18 09:21 Albuterol/ Ipratropium (Duoneb 0.5 Mg-3 Mg/3 ml Soln) 3 ml STAT STAT IH 07/08/18 08:28 07/08/18 08:29 DC 07/08/18 08:51 Dexamethasone Sodium Phosphate (Decadron) 4 mg STAT STAT IH 07/08/18 08:28 07/08/18 08:29 DC 07/08/18 08:51 Methylprednisolone Sodium Succinate (Solu-Medrol) 125 mg STAT STAT IV 07/08/18 08:28 07/08/18 08:29 DC 07/08/18 09:09 Albuterol/ Ipratropium (Duoneb 0.5 Mg-3 Mg/3 ml Soln) 3 ml STK-MED ONCE IH 07/08/18 08:40 07/08/18 08:41 DC Dexamethasone Sodium Phosphate (Decadron) 4 mg STK-MED ONCE .ROUTE 07/08/18 08:40 07/08/18 08:41 DC Methylprednisolone Sodium Succinate (Solu-Medrol) 125 mg STK-MED ONCE .ROUTE 07/08/18 09:03 07/08/18 09:04 DC Furosemide (Lasix) 40 mg STK-MED ONCE .ROUTE 07/08/18 09:03 07/08/18 09:04 DC Albuterol/ Ipratropium (Duoneb 0.5 Mg-3 Mg/3 ml Soln) 3 ml Q4HR IH 07/08/18 12:00 07/08/18 13:04 DC 07/08/18 12:57 Methylprednisolone Sodium Succinate (Solu-Medrol) 60 mg Q8HR IV 07/08/18 14:00 07/08/18 14:00 DC Albuterol/ Ipratropium (Duoneb 0.5 Mg-3 Mg/3 ml Soln) 3 ml RTQID IH 07/08/18 17:00 08/07/18 11:59 07/09/18 08:29 Levalbuterol HCl (Xopenex) 0.63 mg RTQ6 PRN IH SHORTNESS OF BREATH 07/08/18 13:30 08/07/18 13:29 Methylprednisolone Sodium Succinate (Solu-Medrol) 40 mg Q8HR IV 07/08/18 14:00 07/08/18 14:11 DC 07/08/18 13:50 Atorvastatin Calcium (Lipitor) 20 mg HS PO 07/08/18 21:00 08/07/18 20:59 07/08/18 20:28 Budesonide (Pulmicort) 0.5 mg RTBID IH 07/08/18 21:00 08/07/18 20:59 07/09/18 08:29 Carvedilol (Coreg) 6.25 mg BID PO 07/08/18 21:00 08/07/18 20:59 07/09/18 09:56 Digoxin (Lanoxin) 125 mcg DAILY PO 07/09/18 09:00 08/08/18 08:59 07/09/18 09:57 Docusate Sodium (Colace) 100 mg BID PO 07/08/18 21:00 08/07/18 20:59 07/09/18 09:54 Furosemide (Lasix) 20 mg DAILY PO 07/09/18 09:00 08/08/18 08:59 07/09/18 09:55 Glipizide (Glucotrol) 5 mg BIDM PO 07/08/18 17:00 07/09/18 12:22 DC 07/08/18 17:50 Losartan Potassium (Cozaar) 50 mg DAILY PO 07/09/18 09:00 08/08/18 08:59 07/09/18 09:56 Pantoprazole Sodium (Protonix) 40 mg DAILY24 PO 07/08/18 13:30 08/07/18 13:29 07/08/18 13:26 Polyethylene Glycol (Miralax) 17 gm DAILY PO 07/09/18 09:00 08/08/18 08:59 Roflumilast (Daliresp) 250 mcg DAILY PO 07/09/18 09:00 08/08/18 08:59 Spironolactone (Aldactone) 25 mg DAILY PO 07/09/18 09:00 08/08/18 08:59 07/09/18 09:54 Warfarin Sodium (Coumadin) 2.5 mg DAILY PO 07/09/18 09:00 08/08/18 08:59 Methylprednisolone Sodium Succinate (Solu-Medrol) 40 mg STK-MED ONCE .ROUTE 07/08/18 13:46 07/08/18 13:47 DC Methylprednisolone Sodium Succinate (Solu-Medrol) 40 mg Q8HR IV 07/08/18 14:10 07/09/18 12:22 DC 07/09/18 05:50 Insulin Human Lispro (Humalog) Give when food is in front... TIDM SQ 07/08/18 18:00 07/11/18 12:00 07/09/18 12:00 Dextrose (Dextrose 50%-Water Syringe) 25 ml STAT PRN IV HYPOGLYCEMIA 07/08/18 16:30 08/07/18 16:29 Insulin Human Lispro (Humalog) 18 unit OT ONCE SQ 07/08/18 19:30 07/08/18 20:46 DC 07/08/18 19:10 Insulin Human Lispro (Humalog) 15 unit OT STAT SQ 07/08/18 22:38 07/08/18 23:44 DC 07/08/18 22:53 Glipizide (Glucotrol) 10 mg BIDM PO 07/09/18 17:00 08/08/18 16:59 UNV Course Sepsis Screening Results: Posi: NEGATIVE Sepsis Qualifier/Stage: NO DEFINITE RISK Duration or Total Time Spent w: 2 hrs Vitals & review Data Vital Sign - Last 24 Hours 07/08/18 07/08/18 07/08/18 07/08/18 08:28 08:28 08:31 08:51 Temp 98.3 98.3 98.3 98.3 98.3 98.3 Pulse 89 89 89 102 Resp 20 20 20 28 B/P (MAP) 138/78 (98) Pulse Ox 95 95 97 O2 Delivery Nasal Canula Nasal Canula O2 Flow Rate 2.00 07/08/18 07/08/18 08:52 09:21 Pulse 96 Resp 30 B/P (MAP) 140/87 Pulse Ox 98 Laboratory Tests Test 07/08/18 09:20 07/08/18 09:50 White Blood Count 9.0 10^3/uL Red Blood Count 4.24 10^6/uL Hemoglobin 11.9 g/dL Hematocrit 38.5 % Mean Corpuscular Volume 90.8 fL Mean Corpuscular Hemoglobin 28.1 pg Mean Corpuscular Hemoglobin Concent 30.9 g/dL Red Cell Distribution Width 13.3 % Platelet Count 171 10^3/uL Mean Platelet Volume 10.7 fL Neutrophils (%) (Auto) 72.8 % Lymphocytes (%) (Auto) 16.0 % Monocytes (%) (Auto) 8.6 % Neutrophils # (Auto) 6.5 10^3/uL Lymphocytes # (Auto) 1.4 10^3/uL Monocytes # (Auto) 0.8 10^3/uL Absolute Immature Granulocyte (auto 0.06 10^3 u/L Eosinophils % 1.5 % Basophils % 0.4 % Basophils # 0.0 10^3/uL Eosinophil Count 0.1 10^3/uL Prothrombin Time 33.1 SEC Prothrombin Time INR (Non-Therap) 3.4 Activated Partial Thromboplast Time 34.5 SEC D-Dimer 0.32 mg/L Sodium Level 136 mmol/L Potassium Level 4.9 mmol/L Chloride Level 93.0 mmol/L Carbon Dioxide Level 38.8 mmol/L Anion Gap 9.1 Blood Urea Nitrogen 12 mg/dL Creatinine 1.02 mg/dL Estimated GFR () 63.8 BUN/Creatinine Ratio 11.0 Glucose Level 230 mg/dL Calcium Level 9.6 mg/dL Total Bilirubin 0.4 mg/dL Aspartate Amino Transf (AST/SGOT) 22 U/L Alanine Aminotransferase (ALT/SGPT) 20 U/L Alkaline Phosphatase 73 U/L Total Creatine Kinase 60 U/L Troponin I 0.06 ng/mL Pro-B-Type Natriuretic Peptide 2033 pg/mL Total Protein 7.0 g/dL Albumin 3.2 g/dL Globulin 3.8 Digoxin Level 1.02 ng/mL Percent Immature Gran (Cell Imm) 0.70 % Helicobacter pylori Screen NEGATIVE Blood Gas Sample Site RT BRACIAL ARTERY Blood Gas pH 7.367 Blood Gas PCO2 70.5 mmHg Blood Gas PO2 74.1 mmHg Blood Gas HCO3 39.6 mmol/L Blood Gas Base Excess 11.4 mmol/L Jaswinder Test POSITIVE Arterial Blood Oxygen Saturation 94.9 % Deoxyhemoglobin 5.0 % Carboxyhemoglobin 1.2 % Methemoglobin 0.4 % Total Hemoglobin 12.9 % Total Oxygen Concentration 17.0 % Lactic Acid (Blood Gas) 0.9 MMOL/L Blood Gas Temperature 37 FiO2 32 % Bicarbonate 41.7 mmol/L Sepsis Infection Criteria Pres: None LEVEL 1 SEPSIS INFECTION CRITE: Cough/Shortness of Breath LEVEL 2-SIRS (LIST ALL THAT AP: RR>20/min Cardiovascular Evidence: Not Assessed or None Hematologic Evidence: None/Not assessed Hepatic Evidence: None/Not assessed Metabolic Evidence: None/Not assessed Neurological Evidence: None/Not assessed Respiratory Evidence: Need for O2 to keep>90% Renal Evidence: None/Not assessed O2 Sat by Pulse Oximetry: 92 Oxygen Flow Rate: 2.50 Assessment/Plan Assessment/Plan Assessment/Plan 77 yo female with COPD with acute hypoxic and hypercapneic resp failure resolving, chronic acute and diastolic CHF, DM, HTN - start lantus and cont humalog SS for her high sugars - cont cardiac meds - PT for mobility - Pt presented with resp failure with a PCO2 of over 70 while on high O2; i explained to her that high O2 would be detrimental to her fragile COPD R lung ( she had a L total pneumonectomy); She needs a Bilevel assistive device to keep her PCO2 down while maintaining her PO2 since were able to bring her PCO2 down to 50 with the non-invasive bilvel device. Plan 77 yo female with COPD with acute hypoxic and hypercapneic resp failure resolving, chronic acute and diastolic CHF, DM, HTN - D/C solumedrol and follow sugars while on humalog SS - cont cardiac meds - PT for mobility - Pt presented with resp failure with a PCO2 of over 70 while on high O2; i explained to her that high O2 would be detrimental to her fragile COPD R lung ( she had a L total pneumonectomy); She needs a Bilevel assistive device to keep her PCO2 down while maintaining her PO2 since were able to bring her PCO2 down to 50 with the non-invasive bilvel device. LUCAS PARR MD Jul 10, 2018 11:15
--- NOTE | 2018-07-10 12:02 | NUR ---
DISCHARGE PLAN CASE MANAGEMENT VISITED WITH PATIENT AND KESHAV AZUL CONCERNING DISCHARGE PLAN AND NEEDS. PATIENT IS A CURRENT RESIDENT AT [facility]. DR. PARR GAVE AN ORDER FOR NIV TRILOGY. CM FAXED ORDER TO CLAY ORELLANA AT [facility] AND MADE CONTACT WITH HIM VIA PHONE CONCERNING ORDER. CM SPOKE TO PATIENT AND SHE IS CURRENTLY HAPPY AT [facility] AND WOULD LIKE TO DISCHARGE BACK TO THERE. CM NOTIFIED ANYI NUGENT AT [facility] THAT PATIENT IS HERE AT OUR FACILITY AND WILL BE DISCHARGING BACK TO THEIR FACILITY IN THE NEXT DAY OR TWO. CM ALSO WENT OVER THE NIV TRILOGY UNIT WITH PATIENT AND SPOKE TO HER ABOUT THE APPROVAL PROCESS FOR THE MACHINE. DISCHARGE GOAL IS TO DISCHARGE TO [facility]. CM WILL CONTINUE TO FOLLOW.
[2018-07-10 13:02] VITALS: BP 118/66
--- NOTE | 2018-07-10 13:25 | NUR ---
Post Rogers Void Rogers removed at 1115. Well tolerated by patient. 1230 Patient had urine out into bedside commode.
[2018-07-10 20:40] VITALS: BP 125/73
[2018-07-10] MEDS: LIPITOR PO SCH (21:52)
[2018-07-11 00:45] VITALS: BP 142/75
[2018-07-11 04:38] VITALS: BP 146/69
--- NOTE | 2018-07-11 07:00 | NUR ---
REPORT REPORT RECEIVED FROM Ashley FINK LVN ASSUMED CARE OF PT
[2018-07-11 07:20] VITALS: BP 157/69
[2018-07-11] MEDS ORDERED: DALIRESP ONE (08:09)
[2018-07-11] MEDS: HUMALOG SQ SCH ×2 (08:33→12:35)
[2018-07-11] MEDS: MIRALAX PO SCH (08:40)
[2018-07-11] MEDS: COLACE PO SCH (08:41)
[2018-07-11] MEDS: LASIX PO SCH (08:41)
[2018-07-11] MEDS: LANOXIN PO SCH (08:41)
[2018-07-11] MEDS: ALDACTONE PO SCH (08:41)
[2018-07-11] MEDS: GLUCOTROL PO SCH ×2 (08:42→17:21)
[2018-07-11] MEDS: COREG PO SCH (08:42)
[2018-07-11] MEDS: COZAAR PO SCH (08:42)
[2018-07-11] MEDS: DALIRESP PO SCH (08:42)
[2018-07-11] MEDS: COUMADIN PO SCH (08:45)
[2018-07-11] MEDS ORDERED: PROTONIX PO SCH (09:00)
[2018-07-11] MEDS ORDERED: LANTUS SQ SCH (09:00)
[2018-07-11] MEDS: PULMICORT IH SCH (09:02)
[2018-07-11] MEDS: DUONEB 0.5 MG-3 MG/3 ML SOLN IH SCH ×3 (09:02→16:08)
[2018-07-11] MEDS ORDERED: INSU100V8 SQ (10:41)
[2018-07-11] MEDS ORDERED: GLIP5TAB10 PO (10:41)
[2018-07-11] MEDS ORDERED: INSU100V SQ (10:41)
--- NOTE | 2018-07-11 11:15 | DSH ---
DATE OF DISCHARGE: 07/11/2018 ADMITTING DIAGNOSES: 1. Acute hypercapnic and hypoxic respiratory failure with underlying chronic obstructive pulmonary disease exacerbation. 2. Cardiomyopathy with chronic systolic and diastolic congestive heart failure, type 2 diabetes mellitus, uncontrolled with history of atrial fibrillation, pulmonary hypertension. DISCHARGE DIAGNOSES: Chronic obstructive pulmonary disease with chronic systolic and diastolic congestive heart failure, type 2 diabetes mellitus, pulmonary hypertension, atrial fibrillation and chronic obstructive pulmonary disease with hypercapnia and hypoxia with O2 dependency. HOSPITAL COURSE: The patient is a very pleasant 77-year-old female, who came in with respiratory failure. She was having very labored breathing. Her pCO2 was above 70 when she came in. Chest x-ray did not show any acute heart failure component. She does have a left pneumonectomy. Her white count was normal coming in. I went ahead and gave her a few doses of Solu-Medrol with DuoNeb treatments. We did start her on BiPAP, which significantly improved her pCO2 and her oxygenation. Her pCO2 was down to 50. She is a chronic retainer and I explained to her that blasting oxygen to a higher level would be detrimental to her lungs and her COPD, and at this time, I do not recommend her having more than 3 liters of oxygen at any given point, and if she definitely needs more oxygen, then she should be on an assisted device such as BiPAP or CPAP. Her sugars were very high when she came in and this was worsened by the fact that she was getting Solu-Medrol for 3 doses. I stopped the Solu-Medrol. Her breathing is much improved. O2 sats are anywhere between 90-94 percent right now on just 2-1/2 liters of oxygen. She is breathing better. She feels better. She is eating fine. I had Therapy come by and they have been getting her up and walking around. Her sugars were up to 500 initially, but I put her on Lantus and she is at 35 units right now and her sugars are coming back down. She is also on Humalog sliding scale. I increased her glipizide to 10 mg twice a day as well, but at this time, she is back on her cardiac medications. She feels better. She is breathing better. She is clinically improved. I am going to send her back to [facility]. I am her primary care physician and I will follow her there. Stay on 1800 ADA cardiac diet, do Accu-Cheks a.c. and at bedtime. Again, I am increasing her glipizide to 10 mg twice a day, putting on Lantus 35 units daily and Humalog sliding scale for now. I will follow up to see her first thing next week and she is to stay on 2 to 2-1/2 liters of oxygen as tolerated. We are going to continue breathing treatments on her. If she needs more than 3 liters of oxygen to maintain sats above 88%, then again she needs to be on an assisted breathing device such as CPAP or BiPAP. Carla Chen MD DR: AUGUSTO/reanna JOB# [id number]
--- NOTE | 2018-07-11 11:23 | NUR ---
DISCONTINUED PT IV. CATHETER TIP IN TACT. WRAPPED WITH COBAN AND COTTON BALL. INSTRUCTED PT TO LEAVE IN PLACE FOR 20 MINUTES. PT VERBALIZED UNDERSTANDING.
[2018-07-11 11:49] VITALS: BP 117/65
--- NOTE | 2018-07-11 15:10 | NUR ---
REPORT REPORT GIVEN TO JUAN A AT [facility], STATES, "OUR VAN IS IN [place] AT [facility], SO IT WILL BE TONIGHT."
[2018-07-11 17:43] VITALS: BP 110/72
[2018-07-11 19:55] VITALS: BP 110/72
== END 2018-07-11 19:55 | DRG 189 ==
LOC: EDBD 08:26 → ER 08:26 → MS 11:48
PROVIDERS: ADMIT Pediatrics; ATTEND Pediatrics
PROC: 5A09357 Assistance with Respiratory Ventilation, Less than 24 Consecutive Hours, Continuous Positive Airway Pressure (ICD-10-PCS; principal; 2018-07-08)
PROC: 5A09357 Assistance with Respiratory Ventilation, Less than 24 Consecutive Hours, Continuous Positive Airway Pressure (ICD-10-PCS; 2018-07-09)
PROC: 5A09357 Assistance with Respiratory Ventilation, Less than 24 Consecutive Hours, Continuous Positive Airway Pressure (ICD-10-PCS; 2018-07-11)
DX: J96.01 Acute respiratory failure with hypoxia (principal); J44.1 Chronic obstructive pulmonary disease with (acute) exacerbation; I42.9 Cardiomyopathy, unspecified; I50.42 Chronic combined systolic (congestive) and diastolic (congestive) heart failure; J96.02 Acute respiratory failure with hypercapnia; J44.9 Chronic obstructive pulmonary disease, unspecified; I11.0 Hypertensive heart disease with heart failure; I48.91 Unspecified atrial fibrillation; I27.20 Pulmonary hypertension, unspecified; E11.65 Type 2 diabetes mellitus with hyperglycemia; K21.9 Gastro-esophageal reflux disease without esophagitis; Z99.81 Dependence on supplemental oxygen; Z79.4 Long term (current) use of insulin; Z88.1 Allergy status to other antibiotic agents; Z85.118 Personal history of other malignant neoplasm of bronchus and lung
CPT/HCPCS: 36415; 36600; 71045; 80053; 80162; 82550; 82803; 82947; 82948; 83880; 84484; 85025; 85610; 86677; 87040; 93005; 94640; 94660; 97161; 99285; A4338; G0378; J1100; J1815; J1885; J1940; J2920; J2930; J7620; J7627; 97116-GP

== ENCOUNTER → 2018-07-12 | Outpatient (CLI) | payer OTHER, MEDICAID ==
[~2018-07-12] MED LIST changes: +DOCU-123 PO; +FURO-81 PO; +INSU100V SQ; +INSU100V8 SQ; +METO2.5T PO; +POLY17PO5 PO; +WARF5TAB PO
== END | disposition home or self-care (01) ==
LOC: NPLAB 17:56
PROVIDERS: ATTEND Family Medicine
DX: I11.0 Hypertensive heart disease with heart failure (principal); I50.33 Acute on chronic diastolic (congestive) heart failure
CPT/HCPCS: 85610

== ENCOUNTER → 2018-07-18 | Outpatient (CLI) | payer MEDICARE, MEDICAID | END | disposition home or self-care (01) | LOC: LAB 17:30 | PROVIDERS: ATTEND Pediatrics | DX: R60.9 Edema, unspecified (principal); I11.0 Hypertensive heart disease with heart failure; I50.32 Chronic diastolic (congestive) heart failure; J44.9 Chronic obstructive pulmonary disease, unspecified; E11.9 Type 2 diabetes mellitus without complications; I48.91 Unspecified atrial fibrillation; K21.9 Gastro-esophageal reflux disease without esophagitis | CPT/HCPCS: 85610 ==

== ENCOUNTER 2018-08-06 01:45 | Inpatient (IN) | payer MEDICARE, MEDICAID ==
[~2018-08-06] VITALS: Ht 154.9 cm; Wt 77.6 kg
[2018-08-06] VITALS (10 sets, daily range): BP systolic 90–136; BP diastolic 30–76
[2018-08-06] MEDS ORDERED: TYLENOL PO STA (02:07)
--- NOTE | 2018-08-06 02:12 | ER.PDOC ---
General Chief Complaint: Altered Mental Status Stated Complaint: AMS Time seen by MD: 02:10 Source: EMS, RN notes reviewed, [facility] records Exam Limitations: clinical condition History of Present Illness Initial Comments ALOC, patient eating a banana without pilling it. Character of AMS: confused Context: [facility] resident Usually: orientedx3 Associated Symptoms: fever/chills Allergies: Coded Allergies: erythromycin base (Verified Allergy, Unknown, 02/12/18) Home Meds Active Scripts Insulin Lispro (HUMALOG) 100 Unit/1 Ml Vial, 0 UNIT SQ TIDM, #2 VIAL 3 Refills Prov:LUCAS CHEN MD 07/11/18 Glipizide (GLIPIZIDE) 5 Mg Tablet, 2 TAB PO BID, #120 TAB 3 Refills Prov:LUCAS CHEN MD 07/11/18 Celecoxib (CELEBREX) 100 Mg Capsule, 100 MG PO DAILY24 for 10 Days Prov:ARELI CASTELLON MD 05/17/18 Digoxin (LANOXIN) 125 Mcg Tablet, 125 MCG PO DAILY for 30 Days, #30 TABLET Prov:ARELI CASTELLON MD 05/16/18 Carvedilol (CARVEDILOL) 6.25 Mg Tablet, 6.25 MG PO BID for 30 Days, #60 TABLET Prov:ARELI CASTELLON MD 05/16/18 Atorvastatin 20MG (LIPITOR 20MG) 20 Mg Tablet, 20 MG PO HS for 30 Days, #30 TABLET Prov:ARELI CASTELLON MD 05/16/18 Reported Medications Ondansetron (ONDANSETRON ODT) 4 Mg Tab.rapdis, 4 MG PO Q8 PRN for INSOMNIA 08/06/18 Budesonide (BUDESONIDE) 0.5 Mg/2 Ml Ampul.neb, 1 VIAL NEB RTTID, #120 MILLILITER 3 Refills 08/06/18 Spironolactone 25MG (ALDACTONE 25MG) 25 Mg Tablet, 1 TAB PO BID, #90 TAB 1 Refill 08/06/18 Cyclosporine (RESTASIS) 1 Each Droperette, 1 DROP OP BID, #60 VIAL 3 Refills 08/06/18 Roflumilast (DALIRESP) 500 Mcg Tablet, 1 TAB PO DAILY, #90 TAB 3 Refills 08/06/18 Losartan Potassium (LOSARTAN POTASSIUM) 100 Mg Tablet, 1 TAB PO DAILY, #30 TAB 5 Refills 08/06/18 Insulin Glargine,Hum.rec.anlog (LANTUS SOLOSTAR) 100 Unit/1 Ml Insuln.pen, 30 UNITS SQ HS, #15 MILLILITER 3 Refills 08/06/18 Lactulose (LACTULOSE) 10 Gm/15 Ml Solution, 30 MILLILITER PO DAILY24, #2700 MILLILITER 10 Refills 08/06/18 Warfarin Sodium (WARFARIN SODIUM) 4 Mg Tablet, 1 TAB PO DAILY, #90 TAB 1 Refill 08/06/18 Docusate Sodium (COLACE) 100 Mg Capsule, 1 CAP PO BID, #60 CAP 07/08/18 Polyethylene Glycol 3350 (MIRALAX) 17 Gm Powd.pack, 1 PKT PO DAILY, #2 PKT 07/08/18 Metolazone (ZAROXOLYN) 2.5 Mg Tablet, 2.5 MG PO DAILY24, TABLET 07/08/18 Furosemide (LASIX) 20 Mg Tablet, 1 TAB PO DAILY, #90 TAB 3 Refills 07/08/18 Potassium Chloride (POTASSIUM CHLORIDE) 20 Meq Tab.er.prt, 1 TAB PO DAILY, #90 TAB 3 Refills 05/14/18 Pantoprazole Sodium (PANTOPRAZOLE SODIUM) 40 Mg Tablet.dr, 40 MG PO DAILY24 02/12/18 Discontinued Reported Medications Warfarin Sodium (COUMADIN) 5 Mg Tablet, 1 TAB PO MON,WED,FRI,SUN, #90 TAB 3 Refills 07/08/18 Warfarin Sodium (COUMADIN) 2.5 Mg Tablet, 1 TAB PO TUES,ASAD,SAT, #90 TAB 3 Refills 07/08/18 Discontinued Scripts Insulin Glargine,Hum.rec.anlog (LANTUS) 100 Unit/1 Ml Vial, 35 UNIT SQ DAILY, # 2 VIAL 3 Refills Prov:LUCAS CHEN MD 07/11/18 Roflumilast (DALIRESP) 500 Mcg Tablet, 250 MCG PO DAILY for 30 Days, #30 TABLET Prov:ARELI CASTELLON MD 05/16/18 Budesonide (PULMICORT) 0.5 Mg/2 Ml Ampul.neb, 0.5 MG IH RTBID for 30 Days, #60 Prov:ARELI CASTELLON MD 05/16/18 Spironolactone 25MG (ALDACTONE 25MG) 25 Mg Tablet, 25 MG PO DAILY for 30 Days, # 30 TABLET Prov:ARELI CASTELLON MD 05/16/18 Losartan Potassium (COZAAR) 25 Mg Tablet, 50 MG PO DAILY for 30 Days, #30 TABLET Prov:ARELI CASTELLON MD 05/16/18 [Ipratropium/Albuterol Sulfate] 3 ML AMPUL.NEB No Conflict Check, 3 ML IH RTTID for 30 Days, #90 Prov:ARELI CASTELLON MD 05/16/18 Past Medical History Medical History: arrhythmia, congestive heart failure, COPD, diabetes, emphysema, hypertension Surgical History: tonsillectomy LMP (females 10-50): postmenopause Social History Smoking: quit greater than 1 year, cigarettes Alcohol Use: none Drug Use: none Review of Systems Constitutional: see HPI Respiratory: cough Cardiovascular: edema Gastrointestinal: no symptoms reported Genitourinary: no symptoms reported All Other Systems: Reviewed and Negative Physical Exam General Appearance: alert, no distress HEENT: no apparent trauma, EOM's intact, no nystagmus, PERRL, ENT inspection nml, pharynx nml, airway intact, oral exam nml Neuro/Psych: disoriented to time Cranial Nerves: nml as tested Peripheral Exam: motor nml, sensation nml, reflexes nml Neck: supple, non-tender, no carotid bruit Respiratory: breath sounds nml (diminished on left) CVS: reg rate & rhythm, heart sounds nml Abdomen: non-tender, no organomegaly, no distention Skin: color nml, no rash, warm/dry Extremities: pedal edema Results/Orders Results/Orders Orders - KAMALA HUGHES MD Cbc With Auto Diff (08/06/18 02:07) Comprehensive Metabolic Panel (08/06/18 02:07) Creatine Kinase (08/06/18 02:07) Xr Chest 1v (08/06/18 02:07) Ct Head Wo Contrast (08/06/18 02:07) Urinalysis (08/06/18 02:07) Ekg-Routine (08/06/18 02:07) Troponin I (08/06/18 02:07) Blood Culture (08/06/18 02:07) Arterial Blood Gas (08/06/18 02:07) Influenza A&B (08/06/18 02:07) Acetaminophen (Tylenol) (08/06/18 02:07) Probnp B-Type Home Health Occupational Therapist (08/06/18 02:11) Acetaminophen (Tylenol) (08/06/18 02:33) Urine Culture (08/06/18 02:07) Vital Signs Date Time Temp Pulse Resp B/P (MAP) Pulse Ox O2 Delivery O2 Flow Rate FiO2 08/06/18 03:15 103 22 136/70 (92) 94 Nasal Canula 3.00 08/06/18 02:46 106 22 134/76 (95) 92 Nasal Canula 3.00 08/06/18 01:45 102.3 104 20 133/65 (87) 94 Nasal Canula 3.00 102.3 08/06/18 01:45 102.3 104 20 94 Nasal Canula 102.3 08/06/18 01:45 102.3 104 20 102.3 07/11/18 19:55 88 07/11/18 08:42 84 07/10/18 00:00 S/T Administered Medications Medications (Trade) Dose Ordered Sig/Jose Route PRN Reason Start Time Stop Time Status Last Admin Dose Admin Acetaminophen (Tylenol) 1,000 mg STAT STAT PO 08/06/18 02:07 08/06/18 02:10 DC 08/06/18 02:33 1,000 MG Laboratory Tests Test 08/06/18 02:07 08/06/18 02:20 08/06/18 02:21 08/06/18 02:28 Urine Collection Type CCMS Urine Color YELLOW (YELLOW) Urine Appearance CLOUDY (CLEAR) H Urine Bilirubin NEGATIVE MG/DL (NEGATIVE) Urine Ketones NEGATIVE (NEGATIVE) Urine Specific Harper 1.010 (1.005-1.035) Urine pH 6.5 (5.0-6.0) Urine Protein 30 mg/dL (NEGATIVE) H Urine Urobilinogen NORMAL (NEGATIVE) Urine Nitrate POSITIVE (NEGATIVE) Urine Leukocyte Esterase 500/uL 2+ (NEGATIVE) Urine Blood 50 2+ (NEGATIVE) H Urine RBC 0-2 RBC/HPF (NONE SEEN) Urine WBC TNTC WBC/HPF (0-2) H Urine Squamous Epithelial Cells MODERATE #/HPF (FEW) Urine Bacteria MANY (NONE SEEN) H Urine Glucose NORMAL (NEGATIVE) Blood Gas Sample Site RT BRACIAL ARTERY Blood pH 7.439 (7.350-7.450) Blood Gas PCO2 46.2 mmHg (35.0-45.0) H Blood Gas PO2 61.7 mmHg (75.0-100.0) L Blood Gas HCO3 30.6 mmol/L (22.0-26.0) H Blood Gas Base Excess 5.7 mmol/L (-2.0-2.0) H Jaswinder Test N/A Arterial Blood Oxygen Saturation 90.6 % (95-) L Deoxyhemoglobin 9.3 % (0.2-0.6) H Carboxyhemoglobin 0.8 % (0.5-1.5) Methemoglobin 0.3 % (0.2-0.6) Total Hemoglobin 11.2 % (13.5-17.5) L Total Oxygen Concentration 14.1 % (13.5-17.5) Lactic Acid (Blood Gas) 0.9 MMOL/L (0.5-1.0) Blood Gas Temperature 37 Oxygen Delivery Method NASAL CANNULA FiO2 32.0 % (20-101) Bicarbonate Pending White Blood Count 9.9 10^3/uL (4.5-11.0) Red Blood Count 3.90 10^6/uL (4.00-5.20) L Hemoglobin 10.6 g/dL (12.0-15.0) L Hematocrit 34.8 % (36.0-46.0) L Mean Corpuscular Volume 89.2 fL (78-100) Mean Corpuscular Hemoglobin 27.2 pg (26-34) Mean Corpuscular Hemoglobin Concent 30.5 g/dL (33-37) L Red Cell Distribution Width 13.8 % (11.5-14.5) Platelet Count 161 10^3/uL (150-400) Mean Platelet Volume 10.5 fL (7.8-11.0) Neutrophils (%) (Auto) 83.5 % (41.0-85.0) Lymphocytes (%) (Auto) 6.1 % (24.0-44.0) *L Monocytes (%) (Auto) 9.3 % (5.0-12.0) Neutrophils # (Auto) 8.2 10^3/uL (1.8-7.7) H Lymphocytes # (Auto) 0.6 10^3/uL (1.0-4.8) L Monocytes # (Auto) 0.9 10^3/uL (0.3-0.8) H Absolute Immature Granulocyte (auto 0.07 10^3 u/L (0-2) Eosinophils % 0.1 % (0.0-5.0) Basophils % 0.3 % (0.0-0.2) H Basophils # 0.0 10^3/uL (0.0-0.1) Eosinophil Count 0.0 10^3/uL (0.0-0.2) Sodium Level 138 mmol/L (132-145) Potassium Level 4.0 mmol/L (3.6-5.2) Chloride Level 99.0 mmol/L (96-109) Carbon Dioxide Level 34.0 mmol/L (20.0-32) H Anion Gap 9.0 Blood Urea Nitrogen 19 mg/dL (7-18) H Creatinine 1.27 mg/dL (0.59-1.40) Estimated GFR () 49.5 (>/=60) BUN/Creatinine Ratio 14.0 Glucose Level 194 mg/dL (70-110) H Calcium Level 9.2 mg/dL (8.4-10.5) Total Bilirubin 0.4 mg/dL (0.2-1.0) Aspartate Amino Transferase (AST) 17 U/L (0-35) Alanine Aminotransferase (ALT) 15 U/L (12-78) Alkaline Phosphatase 67 U/L (50-136) Total Creatine Kinase 34 U/L (26-192) Troponin I 0.04 ng/mL (0.00-0.05) Pro-B-Type Natriuretic Peptide 5381 pg/mL (0-450) H Total Protein 7.1 g/dL (6.4-8.2) Albumin 2.8 g/dL (3.4-5.0) L Globulin 4.3 Percent Immature Gran (Cell Imm) 0.70 % (0.00-0.50) H Influenza Type A Antigen NEGATIVE (NEG) Influenza B Immunofluorescence NEGATIVE (NEG) Test 08/06/18 02:42 Differential Total Cells Counted 100 #CELLS Segmented Neutrophils 75 % (31-76) Band Neutrophils 10 % (2-6) H Lymphocytes 7 % (25-36) L Monocytes 8 % (3-9) EKG/XRAY/CT/US EKG: NSR XRAY: chest (No active disease) CT Comments: Nothing acute intracranially Course Sepsis Screening Results: Posi: POSITIVE SEPSIS RISK Sepsis Qualifier/Stage: NO DEFINITE RISK Duration or Total Time Spent w: 2 hrs Vitals & review Data Vital Sign - Last 24 Hours 07/10/18 07/11/18 07/11/18 08/06/18 00:00 08:42 19:55 01:45 Temp 102.3 102.3 Pulse 84 88 104 Resp 20 O2 Delivery S/T 08/06/18 08/06/18 08/06/18 08/06/18 01:45 01:45 02:46 03:15 Temp 102.3 102.3 102.3 102.3 Pulse 104 104 106 103 Resp 20 20 22 22 B/P (MAP) 133/65 (87) 134/76 (95) 136/70 (92) Pulse Ox 94 94 92 94 O2 Delivery Nasal Canula Nasal Canula Nasal Canula Nasal Canula O2 Flow Rate 3.00 3.00 3.00 Laboratory Tests Test 08/06/18 02:07 08/06/18 02:20 08/06/18 02:21 08/06/18 02:28 Urine Collection Type CCMS Urine Color YELLOW Urine Appearance CLOUDY Urine Bilirubin NEGATIVE MG/DL Urine Ketones NEGATIVE Urine Specific Harper 1.010 Urine pH 6.5 Urine Protein 30 mg/dL Urine Urobilinogen NORMAL Urine Nitrate POSITIVE Urine Leukocyte Esterase 500/uL 2+ Urine Blood 50 2+ Urine RBC 0-2 RBC/HPF Urine WBC TNTC WBC/HPF Urine Squamous Epithelial Cells MODERATE #/HPF Urine Bacteria MANY Urine Glucose NORMAL Blood Gas Sample Site RT BRACIAL ARTERY Blood Gas pH 7.439 Blood Gas PCO2 46.2 mmHg Blood Gas PO2 61.7 mmHg Blood Gas HCO3 30.6 mmol/L Blood Gas Base Excess 5.7 mmol/L Jaswinder Test N/A Arterial Blood Oxygen Saturation 90.6 % Deoxyhemoglobin 9.3 % Carboxyhemoglobin 0.8 % Methemoglobin 0.3 % Total Hemoglobin 11.2 % Total Oxygen Concentration 14.1 % Lactic Acid (Blood Gas) 0.9 MMOL/L Blood Gas Temperature 37 Oxygen Delivery Method (LAB) NASAL CANNULA FiO2 32.0 % White Blood Count 9.9 10^3/uL Red Blood Count 3.90 10^6/uL Hemoglobin 10.6 g/dL Hematocrit 34.8 % Mean Corpuscular Volume 89.2 fL Mean Corpuscular Hemoglobin 27.2 pg Mean Corpuscular Hemoglobin Concent 30.5 g/dL Red Cell Distribution Width 13.8 % Platelet Count 161 10^3/uL Mean Platelet Volume 10.5 fL Neutrophils (%) (Auto) 83.5 % Lymphocytes (%) (Auto) 6.1 % Monocytes (%) (Auto) 9.3 % Neutrophils # (Auto) 8.2 10^3/uL Lymphocytes # (Auto) 0.6 10^3/uL Monocytes # (Auto) 0.9 10^3/uL Absolute Immature Granulocyte (auto 0.07 10^3 u/L Eosinophils % 0.1 % Basophils % 0.3 % Basophils # 0.0 10^3/uL Eosinophil Count 0.0 10^3/uL Sodium Level 138 mmol/L Potassium Level 4.0 mmol/L Chloride Level 99.0 mmol/L Carbon Dioxide Level 34.0 mmol/L Anion Gap 9.0 Blood Urea Nitrogen 19 mg/dL Creatinine 1.27 mg/dL Estimated GFR () 49.5 BUN/Creatinine Ratio 14.0 Glucose Level 194 mg/dL Calcium Level 9.2 mg/dL Total Bilirubin 0.4 mg/dL Aspartate Amino Transf (AST/SGOT) 17 U/L Alanine Aminotransferase (ALT/SGPT) 15 U/L Alkaline Phosphatase 67 U/L Total Creatine Kinase 34 U/L Troponin I 0.04 ng/mL Pro-B-Type Natriuretic Peptide 5381 pg/mL Total Protein 7.1 g/dL Albumin 2.8 g/dL Globulin 4.3 Percent Immature Gran (Cell Imm) 0.70 % Influenza Type A Antigen NEGATIVE Influenza B Immunofluorescence NEGATIVE Test 08/06/18 02:42 Differential Total Cells Counted 100 #CELLS Segmented Neutrophils 75 % Band Neutrophils 10 % Lymphocytes 7 % Monocytes 8 % Sepsis Infection Criteria Pres: None LEVEL 1 SEPSIS INFECTION CRITE: Cough/Shortness of Breath LEVEL 2-SIRS (LIST ALL THAT AP: RR>20/min Cardiovascular Evidence: Not Assessed or None Hematologic Evidence: None/Not assessed Hepatic Evidence: None/Not assessed Metabolic Evidence: None/Not assessed Neurological Evidence: None/Not assessed Respiratory Evidence: Need for O2 to keep>90% Renal Evidence: None/Not assessed O2 Sat by Pulse Oximetry: 94 Oxygen Flow Rate: 3.00 Departure Time of Disposition: 04:14 Disposition: 09 ADMITTED INPATIENT Impression: Primary Impression: Altered mental status, unspecified Additional Impressions: UTI (urinary tract infection) Congestive heart failure (CHF) Condition: Stable Referrals: LUCAS CHEN MD (PCP) PRIMARY CARE PROVIDER Comments Admitted to Dr. Chen Duration or Time Spent with Pa: 60 mins Problem Qualifiers Primary Impression: Altered mental status, unspecified Altered mental status type: unspecified Qualified Codes: R41.82 - Altered mental status, unspecified Additional Impressions: UTI (urinary tract infection) Urinary tract infection type: site unspecified Hematuria presence: with hematuria Qualified Codes: N39.0 - Urinary tract infection, site not specified ; R31.9 - Hematuria, unspecified Congestive heart failure (CHF) Heart failure type: unspecified Heart failure chronicity: unspecified Qualified Codes: I50.9 - Heart failure, unspecified KAMALA HUGHES MD Aug 06, 2018 02:12
--- NOTE | 2018-08-06 02:15 | PCM.EKG ---
[facility] Test Date: 2018-08-06 Test Time: 02:12:56 Pat Name: SUHA LAURENT Department: Room: 328 Gender: F Configuration Developer: [id number] : [id number] Requested By: KAMALA HUGHES Order Number: [id number] Reading MD: Kamala HUGHES Measurements Intervals Valentines Rate: 97 P: 101 NH: 144 QRS: -56 QRSD: 112 T: 85 QT: 374 QTc: 474 Interpretive Statements Sinus rhythm with fusion complexes Left anterior fascicular block Abnormal ECG Compared to ECG 07/08/2018 08:38:39 Fusion complex(es) now present Sinus tachycardia no longer present Ventricular premature complex(es) no longer present Right bundle-branch block no longer present Bifascicular block no longer present Electronically Signed On 08-11-2018 12:26:37 CDT by Kamala HUGHES Please click the below link to view image of tracing.
[2018-08-06 02:31] LABS: BASOPHIL % 0.3 % (0.0-0.2); EOSINOPHIL % 0.1 % (0.0-5.0); HEMOGLOBIN 10.6 g/dL (12.0-15.0); LYMPHOCYTES # 0.6 10^3/uL (1.0-4.8); LYMPHOCYTES % 6.1 % (24.0-44.0); MEAN CELL HGB 27.2 pg (26-34); MEAN CELL HGB CONCENTRATION 30.5 g/dL (33-37); MEAN CORP VOLUME 89.2 fL (78-100); MEAN PLATELET VOLUME 10.5 fL (7.8-11.0); MONOCYTES # 0.9 10^3/uL (0.3-0.8); MONOCYTES % 9.3 % (5.0-12.0); NEUTROPHIL # 8.2 10^3/uL (1.8-7.7); NEUTROPHILS % 83.5 % (41.0-85.0); RED CELL DISTRIBUTION WIDTH 13.8 % (11.5-14.5); WHITE BLOOD CELL 9.9 10^3/uL (4.5-11.0)
[2018-08-06] MEDS ORDERED: TYLENOL PO ONE (02:33)
[2018-08-06 02:35] LABS: ABG PCO2 46.2 mmHg (35.0-45.0); ABG PH 7.439 (7.350-7.450); BE(B) 5.7 mmol/L (-2.0-2.0); HCO3act 30.6 mmol/L (22.0-26.0); pO2 61.7 mmHg (75.0-100.0)
[2018-08-06 02:57] LABS: CALCIUM 9.2 mg/dL (8.4-10.5)
--- NOTE | 2018-08-06 03:04 | DIREP ---
PROCEDURE:CHEST 1 VIEW COMPARISON:[facility], CR, XRAY CHEST SINGLE VW, 07/08/2018, 08:45 AM. INDICATIONS:AMS and cough FINDINGS: LUNGS/PLEURA: Left pneumonectomy with volume loss changes. Increased vascular markings in the aerated right lung. VASCULATURE: Within normal limits. CARDIAC: Left-sided pacemaker. The cardiac silhouette is obscured. YONATAN/MEDIASTINUM: No visible mass or adenopathy. BONES: No acute changes. No fracture or visible bony lesion. OTHER: No additional findings. CONCLUSION: 1. No acute changes. Dictated by: Sriram Meza M.D. on 08/06/2018 at 02:59 AM
--- NOTE | 2018-08-06 03:07 | DIREP ---
PROCEDURE:CT HEAD OR BRAIN W/O CONTRAST COMPARISON:None. INDICATIONS:AMS FINDINGS: VENTRICLES: Negative. CEREBRUM: Negative. CEREBELLUM: Negative. BRAINSTEM: Negative. BASAL CISTERNS: Negative. SKULL: Negative. SINUSES: Negative. OTHER: None. CONCLUSION: 1. There is no CT evidence of intracranial mass, hemorrhage, or acute infarct. Dictated by: Sriram Meza M.D. on 08/06/2018 at 03:05 AM
[2018-08-06 03:13] LABS: BAND NEUTROPHILS 10 % (2-6); LYMPHOCYTE 7 % (25-36); MONOCYTE 8 % (3-9); SEGMENTED NEUTROPHILS 75 % (31-76)
[2018-08-06 03:17] LABS: BILIRUBIN,URINE NEGATIVE (NEGATIVE); UROBILINOGEN,URINE NORMAL (NEGATIVE)
[2018-08-06 03:18] LABS: APPEARANCE,URINE CLOUDY (CLEAR); UA COLOR YELLOW (YELLOW)
[2018-08-06] MEDS ORDERED: INSU100I13 SQ (03:22)
[2018-08-06] MEDS ORDERED: ONDA4TAB13 PO (03:22)
[2018-08-06] MEDS ORDERED: WARF4TAB65 PO (03:22)
[2018-08-06] MEDS ORDERED: ROFL500T PO (03:22)
[2018-08-06] MEDS ORDERED: CYCL1DRO OP (03:22)
[2018-08-06] MEDS ORDERED: BUDE0.5A NEB (03:22)
[2018-08-06] MEDS ORDERED: LACT10SO PO (03:22)
[2018-08-06] MEDS ORDERED: SPIR25TA PO (03:22)
[2018-08-06] MEDS ORDERED: LOSA100T14 PO (03:22)
--- NOTE | 2018-08-06 03:32 | NUR ---
[facility] Received call from [facility] requesting update. Informed pending test results. Will update when results are back.
--- NOTE | 2018-08-06 03:55 | NUR ---
Dr. Chen On phone with Dr. Salas at this time regarding test results. Await recommendations, further orders.
[2018-08-06] MEDS ORDERED: ROCEPHIN 1,000 MG in NS 100ML 100 ML IV STA (04:16)
[2018-08-06] MEDS ORDERED: LASIX IV STA (04:16)
--- NOTE | 2018-08-06 04:16 | PRM.ACF1 ---
Date and Time Date and Time Time: 04:16 Admission Criteria Forms ACUTE LOSS OF CONSCIOUSNESS- ALOC Clinical Indications for Inpatient Care (Place 'X' for any and all applicable criteria): Ongoing inpatient care may be needed for ANY ONE of the following(1)(2)(3)(5)(6) : [ x]I. Suspected serious etiology (eg, medical disorder, FAMILY PRACTICE PHYSICIAN event) of mental status change [ ]II. Danger to self or others not manageable at lower level of care [ ]III. Grave disability (eg, inability to perform self care necessary at lower level of care) [ ]IV. Agitation or inappropriate behavior interfering with care for primary condition (eg, attempting to discontinue lines or drains prematurely, unable to cooperate with respiratory care) [ ]V. Delirium [A] [D][E] as described by ANY ONE of the following(26): [ ]a) Delirium due to alcohol or sedative [F] withdrawal [ ]b) Delirium of uncertain etiology that has not responded to appropriate empiric treatment [ ]c) Delirium that prevents performance of a life-sustaining function (eg, feeding or hydrating oneself) [ ]. General contraindications and/or Inappropriate clinical situations for Observational Care in patients with Acute Loss of Consciousness, when ANY ONE of the following is required: [ ]a) Prediction of prolongation of LOS based on ANY ONE of the following may be considered as a contraindication for observational care 2, 3, 4, 5, 6, 7, 8 , 9, 10, 11 [ ]i) Age > 65 yrs. [ ]ii) Patient arriving by ambulance [ ]iii) Patient with high acuity [ ]iv) Patient requiring vital sign monitoring [ ]v) Patient on IV medication [ ]b) Systolic blood pressures 180mmHg 3,12 [ ]c) Patient with altered mental status including delirium and other alteration of consciousness, (3) [ ]d) Patient whose discharge disposition will be to a custodial home or rehabilitation home should not be managed in Emergency Department Observation Unit. CMS rule requires 3 days hospital stay before such placement.3,13 [ ]e) Patient with failure to thrive due to broad array of etiologies 3,16,17 [ ]f) Inability to ambulate 3,14 Extended stay beyond goal length of stay for the primary condition may be needed until ALL of the following are present(3)(5): [ ]a) Underlying medical etiology of mental status change is absent, or has been established and adequately treated [ ]b) Danger to self or others is absent or manageable at lower level of care. [ ]c) Behavior crisis management, including physical or chemical restraints, is not required or available at lower level of car [ ]d) Substance or alcohol withdrawal is absent or manageable at lower level of care. [ ]e) Behavioral symptoms (eg, agitation, somnolence, inappropriate behavior) are absent, or are manageable at lower level of care. The original [facility] [employer] content created by [facility] has been revised. The portions of the content which have been revised are identified through the use of italic text or in bold, and [facility] has neither reviewed nor approved the modified material. All other unmodified content is copyright � [facility] [employer]. Please see references footnoted in the original [facility] [employer] edition 2016 KAMALA HUGHES MD Aug 06, 2018 04:16
[2018-08-06] MEDS ORDERED: NS 100ML 100 ML IV ONE (04:20)
[2018-08-06] MEDS ORDERED: LASIX ONE (04:20)
[2018-08-06] MEDS ORDERED: ROCEPHIN ONE (04:20)
--- NOTE | 2018-08-06 04:20 | NUR ---
Lasix Blood Pressure 95/51 after repeat check. HR 70. Dr. Salas notified, order received to cancel Lasix and not administer.
--- NOTE | 2018-08-06 04:49 | NUR ---
Transfer Pt to [facility] 328A via wheelchair accompanied by this nurse and personal belongings. Portable Oxygen on at 3L/NC. Pt transferred self to wheelchair with SBA. Noted dyspnea upon exertion. Upon arrival to room, pt transferred self to bed with SBA, positioned to comfort independently. IV remains patent, infusing Rocephin at per order. Report provided to JULIA Cooper and JULIA Salcedo.
--- NOTE | 2018-08-06 05:00 | NUR ---
[facility] Call placed to [facility] to notify of admission and diagnosis. Spoke to
--- NOTE | 2018-08-06 07:08 | NUR ---
Report Assumed care of patient after report received from Matias DUMONT at shift change. Patient sleeping, awakens to voice.
--- NOTE | 2018-08-06 10:13 | NUR ---
Activity Up to the bathroom with assist. Became SOB with activity. Practicing pursed lip breathing.
[2018-08-06] MEDS ORDERED: ZOFRAN ODT PO PRN (11:00)
[2018-08-06] MEDS: HUMALOG SQ SCH ×2 (12:00→18:00)
[2018-08-06] MEDS ORDERED: DEXTROSE 50%-WATER SYRINGE IV PRN (12:00)
[2018-08-06] MEDS ORDERED: HUMALOG SQ SCH ×2 (12:00)
--- NOTE | 2018-08-06 12:04 | HPH ---
ADMIT DATE: 08/06/2018 The patient is being admitted as an inpatient to [facility]. PRIMARY CARE PHYSICIAN: Carla Chen M.D. ADMITTING DIAGNOSES: Urinary tract infection with fever and altered mental status with underlying chronic obstructive pulmonary disease and chronic atrial fibrillation, cardiomyopathy, type 2 diabetes mellitus, pulmonary hypertension with acute exacerbation of systolic and diastolic congestive heart failure. CHIEF COMPLAINT: Fever and not acting right. HISTORY OF PRESENT ILLNESS: As follows: The patient is a 77-year-old female with underlying advanced COPD and heart failure, who was just hospitalized about a month ago for respiratory failure with her lungs. Her lungs and heart were optimized in the hospital and she was eventually discharged to [facility] where she has been doing good. She has been working with therapy. She has been on 2-3 L of oxygen a day and she has been getting up and around. Her appetite has been good. She states that she had no major complaints other than she could not tolerate BiPAP for more than a few hours at night because it seemed like it was suffocating her, but she has been breathing good. Yesterday, nurses noted that she was not herself, she was acting strange and she had a fever up to 102. At that point, they had her come in to the ER to get evaluated where it was noted that her urine was abnormal and she was admitted for UTI with fever. This morning she is actually very alert, awake and answering my questions appropriately. She denies any chest pain. No headache, no abdominal pains. She had an accident with a bed wetting earlier this morning, and she knew that she had that. She states that she could not make it to the bathroom on time, but again she does report her legs being swollen lately and some shortness of breath and she thinks that she is a little bit fluid overloaded at this point. No syncope reported, no lethargy, no trauma reported lately. PAST MEDICAL HISTORY: Again significant for chronic AFib, atrial fibrillation, with advanced COPD. She does have chronic systolic and diastolic congestive heart failure, type 2 diabetes mellitus, pulmonary hypertension, cardiomyopathy, last EF was reported to be around 30-35%. ALLERGIES: TO ERYTHROMYCIN. SOCIAL HISTORY: She does not currently smoke. No drugs, no alcohol reported. FAMILY HISTORY: Asked and noncontributory for this admission. PAST SURGICAL HISTORY: Includes a left total pneumonectomy for lung cancer, colonoscopy, tonsillectomy. She does have an ICD as well. MEDICATIONS: She is on include Lantus, glipizide, Celebrex, digoxin, Coreg, Lipitor, Zofran, Pulmicort, Aldactone, cyclosporine eye drops, Daliresp, losartan, Coumadin, Colace, Lasix, and Protonix. PHYSICAL EXAMINATION: VITAL SIGNS: Initially in the ER, her temperature was 102.3, pulse rate was 84, respirations 20, blood pressure was 133/65, O2 sats were initially 94% on 3 L, but it has dropped down to 81% on 2 L on the floor. GENERA: My physical exam this morning, she is awake, she is alert, she is answering my questions appropriately. She does not appear to be delirious or confused at this time. HEENT: Oropharynx was clear. No maxillary or sinus tenderness. Nasal cannula is in place. NECK: Supple. HEART: S1, S2 audible. She was not tachycardic. LUNGS: She had no breath sounds on the left, but she had some mild crackles to the right side. Some fine crackles. ABDOMEN: Good bowel sounds, soft abdomen, no rebound or guarding. EXTREMITIES: She did have about 3+ edema to her lower legs bilaterally. NEUROLOGIC: She is grossly intact. LABORATORY DATA: Labs were done in the ER; she had a white count of 9900, hemoglobin of 10.6, platelet count of 161. Blood gas showed a pH of 7.44, pCO2 of 46, pO2 of 62, bicarbonate of 31. Her lactic acid level was 0.9. Chemistry panel had sodium 138, potassium 4.0, BUN 19, creatinine 1.3, glucose of 194. ProBNP was 5381. Cardiac enzymes negative x 1. LFTs were normal. Albumin is 2.8. UA was cloudy with positive nitrite, positive esterase, many bacteria, too numerous to count wbc's. Flu A and B were both negative. IMAGING STUDIES: She had a CT of the head that did not show any acute intracranial problems. Chest x-ray showed some increase in vascular markings on the right side consistent with some pulmonary edema. ASSESSMENT: We have this senior care resident who does have a UTI with fever and some altered mental status due to the fever. She has no organ damage at this point. She does not have a metabolic encephalopathy. She is not septic. I will start IV antibiotics on her and give her some Lasix to increase her fluid overload at this time and follow her clinically for the next 48-72 hours to see if she improves. I will follow her sugars since she is a diabetic and cover her accordingly and see how her appetite is and how her mobility is in the hospital. Carla Chen MD DR: AUGUSTO/reanna JOB# [id number]
[2018-08-06] MEDS: PROTONIX PO SCH (12:40)
[2018-08-06] MEDS: COREG PO SCH ×2 (12:41→21:09)
--- NOTE | 2018-08-06 13:28 | NUR ---
STATUS DR PARR NOTIFIED OF PT STATUS, PT SITTING UP IN BED, SHORT OF BREATH AND LABORED BREATHING, O2 SATS 89-90% ON 2.5L NC. ORDER RECEIVED FRO DUONEB RIGHT NOW AND THEN TID. ATIVAN 0.5MG PO OT. WILL CONT TO MONITOR. CALL LIGHT WITHIN REACH. BED LOCKED AND LOW POSITION.
[2018-08-06] MEDS ORDERED: ATIVAN PO STA (13:30)
[2018-08-06] MEDS ORDERED: DUONEB 0.5 MG-3 MG/3 ML SOLN IH STA (13:30)
[2018-08-06] MEDS ORDERED: ATIVAN ONE (13:41)
[2018-08-06] MEDS ORDERED: LASIX IV ONE (14:00)
--- NOTE | 2018-08-06 14:53 | NUR ---
Discomfort Patient to receive 20mg IV lasix, Becomes extremely SOB with activity. Patient at first refused to have a Cooney Catheter placed, therefore bedside commode provided. Patient agreed to allow this RN to place a cooney after her daughter encouraged her to get one. 16 FR cooney placed, patient tolerated well. Patient noticed to be resting easier with cooney in place and after having received 0.5mg PO Ativan, as evidenced by decreased work of breathing with patient resting quietly on her bed.
[2018-08-06] MEDS: ACCU-CHEK MC SCH ×2 (17:30→21:00)
[2018-08-06] MEDS: COUMADIN PO SCH (18:14)
[2018-08-06 18:17] LABS: CARBON DIOXIDE 31.2 mmol/L (20.0-32)
--- NOTE | 2018-08-06 19:04 | NUR ---
report received report from offgoing shift
[2018-08-06] MEDS: PULMICORT IH SCH (20:40)
[2018-08-06] MEDS: DUONEB 0.5 MG-3 MG/3 ML SOLN IH SCH (20:40)
[2018-08-06] MEDS: RESTASIS OP SCH (21:00)
[2018-08-06] MEDS: ROCEPHIN 1,000 MG in NS 100ML 100 ML IV SCH (21:02)
[2018-08-06] MEDS: COLACE PO SCH (21:08)
[2018-08-06] MEDS: LIPITOR PO SCH (21:08)
[2018-08-06] MEDS: ALDACTONE PO SCH (21:09)
[2018-08-06] MEDS: GLUCOTROL PO SCH (21:09)
[2018-08-06] MEDS ORDERED: NS 250ML 250 ML IV ONE (21:11)
[2018-08-06] MEDS: LANTUS SQ SCH (22:18)
[2018-08-06] MEDS: TYLENOL PO PRN (23:46)
[2018-08-07] MEDS ORDERED: MOTRIN PO PRN
[2018-08-07 00:53] VITALS: BP 131/73
[2018-08-07 03:59] VITALS: BP 93/51
[2018-08-07] MEDS: ACCU-CHEK MC SCH ×4 (07:30→20:58)
[2018-08-07] MEDS: HUMALOG SQ SCH ×3 (08:00→17:30)
[2018-08-07 08:36] VITALS: BP 98/56
[2018-08-07] MEDS: DUONEB 0.5 MG-3 MG/3 ML SOLN IH SCH ×3 (08:42→20:22)
[2018-08-07] MEDS: PULMICORT IH SCH ×2 (08:42→20:22)
[2018-08-07 08:50] LABS: BASOPHIL % 0.2 % (0.0-0.2); EOSINOPHIL % 0.4 % (0.0-5.0); HEMOGLOBIN 10.1 g/dL (12.0-15.0); LYMPHOCYTES # 0.6 10^3/uL (1.0-4.8); LYMPHOCYTES % 7.3 % (24.0-44.0); MEAN CELL HGB 27.2 pg (26-34); MEAN CELL HGB CONCENTRATION 30.3 g/dL (33-37); MEAN CORP VOLUME 89.8 fL (78-100); MEAN PLATELET VOLUME 10.2 fL (7.8-11.0); MONOCYTES # 1.2 10^3/uL (0.3-0.8); MONOCYTES % 15.3 % (5.0-12.0); NEUTROPHIL # 6.2 10^3/uL (1.8-7.7); NEUTROPHILS % 76.3 % (41.0-85.0); RED CELL DISTRIBUTION WIDTH 14.1 % (11.5-14.5); WHITE BLOOD CELL 8.1 10^3/uL (4.5-11.0)
[2018-08-07] MEDS: RESTASIS OP SCH ×2 (09:00→21:00)
[2018-08-07] MEDS: COZAAR PO SCH (09:00)
[2018-08-07] MEDS: ALDACTONE PO SCH ×2 (09:00→20:46)
[2018-08-07 09:01] LABS: CALCIUM 8.8 mg/dL (8.4-10.5)
[2018-08-07] MEDS: COLACE PO SCH ×2 (09:19→20:45)
[2018-08-07] MEDS: LANOXIN PO SCH (09:20)
[2018-08-07] MEDS: LASIX PO SCH (09:20)
[2018-08-07] MEDS: COREG PO SCH ×2 (09:20→20:45)
[2018-08-07] MEDS: GLUCOTROL PO SCH ×2 (09:21→20:46)
[2018-08-07] MEDS: CEPHULAC PO SCH (09:22)
[2018-08-07] MEDS: DALIRESP PO SCH (09:30)
[2018-08-07] MEDS: MIRALAX PO SCH (09:30)
[2018-08-07] MEDS: KLOR-CON 10 PO SCH (09:30)
--- NOTE | 2018-08-07 11:15 | PRM.PN ---
Subjective Subjective Date: Aug 07, 2018 Time: 11:00 Subjective Pt reports breathing ok; desats at times and is now on comfort flow; good appetite; denies any CP Patient History: Congestive heart failure (parents) Hypertension (paretns ) VTE VTE Risk Total Score: >5 VTE Risk Score VTE Risk: Score 0-1 = Low Risk (Aggressive mobilization; early ambulation; no VTE prophylaxis required) Score 2: Moderate Risk (Intermittent/Pneumatic Compression Device OR Lovenox/Heparin/Coumadin) Score 3-4: High Risk (Intermittent/Pneumatic Compression Device AND Lovenox/Heparin/Coumadin) Score > or =5: Highest Risk (Intermittent/Pneumatic Compression Device AND Lovenox/Heparin/Coumadin) Antico:Hep/LMWH/Coum/Xarelto: Yes Mechanical device ordered: Yes Review of Systems Constitutional: Fever, Malaise Eyes: No: Pain, Vision change, Conjunctivae inflammation, Eyelid inflammation ENT: No: Ear pain, Ear discharge, Nose pain, Nose discharge Respiratory: Cough, SOB with excertion Cardiovascular: Edema (improved); No: Chest Pain, Palpitations, Orthopnea Gastrointestinal: Constipation; No: Nausea, Vomiting, Abdominal Pain, Diarrhea Genitourinary: No Dysuria, No Frequency; Incontinence Musculoskeletal: No: neck pain, shoulder pain, arm pain, back pain Skin: No: Lesions, Jaundice, Bruising Neurological: Weakness; No: Seizures Allergies: Coded Allergies: erythromycin base (Verified Allergy, Unknown, 02/12/18) Scheduled Atorvastatin 20MG (Lipitor 20MG), 20 MG PO HS Budesonide (Budesonide), 1 VIAL NEB RTTID, (Reported) Carvedilol (Carvedilol), 6.25 MG PO BID Celecoxib (Celebrex), 100 MG PO DAILY24 Cyclosporine (Restasis), 1 DROP OP BID, (Reported) Digoxin (Lanoxin), 125 MCG PO DAILY Docusate Sodium (Colace), 1 CAP PO BID, (Reported) Furosemide (Lasix), 1 TAB PO DAILY, (Reported) Glipizide (Glipizide), 2 TAB PO BID Insulin Glargine,Hum.rec.anlog (Lantus Solostar), 30 UNITS SQ HS, (Reported) Insulin Lispro (Humalog), 0 UNIT SQ TIDM Lactulose (Lactulose), 30 MILLILITER PO DAILY24, (Reported) Losartan Potassium (Losartan Potassium), 1 TAB PO DAILY, (Reported) Metolazone (Zaroxolyn), 2.5 MG PO DAILY24, (Reported) Pantoprazole Sodium (Pantoprazole Sodium), 40 MG PO DAILY24, (Reported) Polyethylene Glycol 3350 (Miralax), 1 PKT PO DAILY, (Reported) Potassium Chloride (Potassium Chloride), 1 TAB PO DAILY, (Reported) Roflumilast (Daliresp), 1 TAB PO DAILY, (Reported) Spironolactone 25MG (Aldactone 25MG), 1 TAB PO BID, (Reported) Warfarin Sodium (Warfarin Sodium), 1 TAB PO DAILY, (Reported) Scheduled PRN Ondansetron (Ondansetron Odt), 4 MG PO Q8 PRN for INSOMNIA, (Reported) Discontinued Medications Budesonide (Pulmicort), 0.5 MG IH RTBID Discontinued Reason: Discontinue Insulin Glargine,Hum.rec.anlog (Lantus), 35 UNIT SQ DAILY Discontinued Reason: No Longer Taking Losartan Potassium (Cozaar), 50 MG PO DAILY Discontinued Reason: Discontinue Roflumilast (Daliresp), 250 MCG PO DAILY Discontinued Reason: Discontinue Spironolactone 25MG (Aldactone 25MG), 25 MG PO DAILY Discontinued Reason: Discontinue Warfarin Sodium (Coumadin), 1 TAB PO TUES,ASAD,SAT, (Reported) Discontinued Reason: Prescription changed Warfarin Sodium (Coumadin), 1 TAB PO MON,WED,FRI,SUN, (Reported) Discontinued Reason: No Longer Taking [Ipratropium/Albuterol Sulfate], 3 ML IH RTTID Discontinued Reason: Discontinue Objective Vitals and I/O Vital Sign - Last 24 Hours 08/06/18 08/06/18 08/06/18 08/06/18 12:32 12:41 13:38 13:44 Pulse 110 110 89 88 Resp 22 36 32 B/P (MAP) 162/77 Pulse Ox 96 93 99 O2 Delivery Nasal Cannula O2 Flow Rate 3.00 FiO2 32 08/06/18 08/06/18 08/06/18 08/06/18 13:47 15:49 20:44 20:44 Temp 99.0 99.0 Pulse 100 88 88 Resp 30 16 16 B/P (MAP) 162/77 105/51 (69) Pulse Ox 90 91 91 O2 Delivery Nasal Canula Nasal Cannula O2 Flow Rate 2.50 3.00 FiO2 32 08/06/18 08/06/18 08/06/18 08/06/18 20:49 20:59 21:09 21:09 Temp 99.5 99.5 Pulse 88 90 90 Resp 16 28 B/P (MAP) 105/50 (68) 105/50 105/50 Pulse Ox 91 90 O2 Delivery Nasal Canula O2 Flow Rate 2.50 08/06/18 08/06/18 08/07/18 08/07/18 22:36 22:39 00:53 03:59 Temp 99.9 97.9 99.9 97.9 Pulse 88 91 65 Resp 18 24 B/P (MAP) 131/73 (92) 93/51 (65) Pulse Ox 93 93 91 O2 Delivery Comfort Joseph Comfort Flow Comfort Flow O2 Flow Rate 20.00 20.00 20.00 FiO2 80 08/07/18 08/07/18 08/07/18 08/07/18 08:36 08:46 08:46 08:58 Temp 97.8 97.8 Pulse 65 86 86 75 Resp 22 18 18 B/P (MAP) 98/56 (70) Pulse Ox 99 99 99 99 O2 Delivery Comfort Flow Comfort Joseph O2 Flow Rate 20.00 20.00 FiO2 80 08/07/18 08/07/18 08/07/18 08/07/18 09:00 09:00 09:20 09:20 Pulse 75 B/P (MAP) 98/56 98/56 98/56 98/56 Intake and Output 08/06/18 08/06/18 08/07/18 15:00 23:00 07:00 Intake Total 240 ml 700 ml Output Total 250 ml 350 ml Balance 240 ml 450 ml -350 ml General: Alert, Oriented X3, Cooperative, No acute distress HEENT: Atraumatic, PERRLA Neck: Supple Lungs: Other (mild rhonchi B) Heart: Normal S1, Normal S2 Abdomen: Normal bowel sounds, Soft Extremities: No clubbing, No cyanosis Neuro: Normal speech Psych/Mental Status: Mental status NL, Mood NL All Results(Lab/Rad) Laboratory Tests Test 08/06/18 18:00 08/07/18 08:43 Prothrombin Time 16.1 SEC Prothrombin Time INR (Non-Therap) 1.6 Sodium Level 136 mmol/L 135 mmol/L Potassium Level 4.1 mmol/L 4.0 mmol/L Chloride Level 99.0 mmol/L 97.0 mmol/L Carbon Dioxide Level 31.2 mmol/L 32.0 mmol/L Glucose Level 144 mg/dL 125 mg/dL Blood Urea Nitrogen 26 mg/dL 36 mg/dL Creatinine 1.51 mg/dL 1.90 mg/dL Calcium Level 9.0 mg/dL 8.8 mg/dL Anion Gap 9.9 10.0 Estimated GFR () 40.5 31.1 BUN/Creatinine Ratio 17.0 18.0 White Blood Count 8.1 10^3/uL Red Blood Count 3.71 10^6/uL Hemoglobin 10.1 g/dL Hematocrit 33.3 % Mean Corpuscular Volume 89.8 fL Mean Corpuscular Hemoglobin 27.2 pg Mean Corpuscular Hemoglobin Concent 30.3 g/dL Red Cell Distribution Width 14.1 % Platelet Count 131 10^3/uL Mean Platelet Volume 10.2 fL Neutrophils (%) (Auto) 76.3 % Lymphocytes (%) (Auto) 7.3 % Monocytes (%) (Auto) 15.3 % Neutrophils # (Auto) 6.2 10^3/uL Lymphocytes # (Auto) 0.6 10^3/uL Monocytes # (Auto) 1.2 10^3/uL Absolute Immature Granulocyte (auto 0.04 10^3 u/L Eosinophils % 0.4 % Basophils % 0.2 % Basophils # 0.0 10^3/uL Eosinophil Count 0.0 10^3/uL Percent Immature Gran (Cell Imm) 0.50 % Current Medications Medications (Trade) Dose Ordered Sig/Jose Route PRN Reason Start Time Stop Time Status Last Admin Dose Admin Acetaminophen (Tylenol) 1,000 mg STAT STAT PO 08/06/18 02:07 08/06/18 02:10 DC 08/06/18 02:33 Acetaminophen (Tylenol) 500 mg STK-MED ONCE PO 08/06/18 02:33 08/06/18 02:34 DC Ceftriaxone Sodium 1000 mg/ Sodium Chloride 100 ml @ 100 mls/hr STAT STAT IV 08/06/18 04:16 08/06/18 05:15 DC 08/06/18 04:20 Furosemide (Lasix) 20 mg STAT STAT IV 08/06/18 04:16 08/06/18 04:20 DC Sodium Chloride 100 ml @ ud STK-MED ONCE IV 08/06/18 04:20 08/06/18 04:21 DC Furosemide (Lasix) 20 mg STK-MED ONCE .ROUTE 08/06/18 04:20 08/06/18 04:21 DC Ceftriaxone Sodium (Rocephin) 1,000 mg STK-MED ONCE .ROUTE 08/06/18 04:20 08/06/18 04:21 DC Furosemide (Lasix) 20 mg OT ONCE IV 08/06/18 14:00 08/06/18 14:01 DC 08/06/18 13:47 Ceftriaxone Sodium 1000 mg/ Sodium Chloride 100 ml @ 100 mls/hr Q24HRS IV 08/06/18 21:00 09/05/18 20:59 08/06/18 21:02 Atorvastatin Calcium (Lipitor) 20 mg HS PO 08/06/18 21:00 09/05/18 20:59 08/06/18 21:08 Budesonide (Pulmicort) 0.5 mg RTBID IH 08/06/18 21:00 09/05/18 20:59 08/07/18 08:42 Carvedilol (Coreg) 6.25 mg BID PO 08/06/18 11:00 09/05/18 10:59 08/07/18 09:20 Cyclosporine (Restasis) RESTASIS PT TO USE OWN MED BID OP 08/06/18 21:00 09/05/18 20:59 Digoxin (Lanoxin) 125 mcg DAILY PO 08/07/18 09:00 09/06/18 08:59 08/07/18 09:20 Docusate Sodium (Colace) 100 mg BID PO 08/06/18 21:00 09/05/18 20:59 08/07/18 09:19 Glipizide (Glucotrol) 10 mg BID PO 08/06/18 21:00 09/05/18 20:59 08/07/18 09:21 Insulin Human Lispro (Humalog) TIDM SQ 08/06/18 12:00 08/06/18 12:00 DC Losartan Potassium (Cozaar) 50 mg DAILY PO 08/07/18 09:00 09/06/18 08:59 Ondansetron HCl (Zofran Odt) 4 mg Q8 PRN PO INSOMNIA 08/06/18 11:00 09/05/18 10:59 08/06/18 12:40 Pantoprazole Sodium (Protonix) 40 mg DAILY24 PO 08/06/18 12:00 09/05/18 11:59 08/06/18 12:40 Polyethylene Glycol (Miralax) 17 gm DAILY PO 08/07/18 09:00 09/06/18 08:59 08/07/18 09:30 Roflumilast (Daliresp) 500 mcg DAILY PO 08/07/18 09:00 09/06/18 08:59 08/07/18 09:30 Spironolactone (Aldactone) 25 mg BID PO 08/06/18 21:00 09/05/18 20:59 08/06/18 21:09 Insulin Glargine (Lantus) 20 unit HS SQ 08/06/18 21:00 09/05/18 20:59 08/06/18 22:18 Potassium Chloride (Klor-Con 10) 20 meq DAILY PO 08/07/18 09:00 09/06/18 08:59 08/07/18 09:30 Warfarin Sodium (Coumadin) 4 mg 17 PO 08/06/18 17:00 09/05/18 16:59 08/06/18 18:14 Insulin Human Lispro (Humalog) 5 unit TIDM SQ 08/06/18 12:00 08/06/18 12:00 DC Miscellaneous Medication (Accu-Chek) 1 each ACHS 08/06/18 17:30 09/05/18 17:29 08/07/18 07:30 Dextrose (Dextrose 50%-Water Syringe) 25 ml PRN PRN IV HYPOGLYCEMIA 08/06/18 12:00 09/05/18 11:59 Insulin Human Lispro (Humalog) Y TIDM SQ 08/06/18 12:00 09/05/18 11:59 Albuterol/ Ipratropium (Duoneb 0.5 Mg-3 Mg/3 ml Soln) 3 ml STAT STAT IH 08/06/18 13:30 08/06/18 13:40 DC 08/06/18 13:38 Albuterol/ Ipratropium (Duoneb 0.5 Mg-3 Mg/3 ml Soln) 3 ml RTTID IH 08/06/18 21:00 09/05/18 20:59 08/07/18 08:42 Lorazepam (Ativan) 0.5 mg OT STAT PO 08/06/18 13:30 08/06/18 13:40 DC 08/06/18 13:30 Lorazepam (Ativan) 0.5 mg STK-MED ONCE .ROUTE 08/06/18 13:41 08/06/18 13:42 DC Sodium Chloride 250 ml @ ud STK-MED ONCE IV 08/06/18 21:11 08/06/18 21:12 DC Ibuprofen (Motrin) 400 mg Q6HR PRN PO PAIN 1 - 3 08/07/18 00:00 09/06/18 00:00 08/07/18 01:04 Acetaminophen (Tylenol) 650 mg Q6HR PRN PO for fever 08/07/18 00:00 09/06/18 00:00 08/06/18 23:46 Furosemide (Lasix) 20 mg DAILY PO 08/07/18 09:00 09/06/18 08:59 08/07/18 09:20 Lactulose (Cephulac) 30 gm DAILY24 PO 08/07/18 08:30 09/06/18 08:29 08/07/18 09:22 Course Sepsis Screening Results: Posi: POSITIVE++ Sepsis Qualifier/Stage: SEVERE SEPSIS RISK Duration or Total Time Spent w: 60 mins Vitals & review Data Vital Sign - Last 24 Hours 07/10/18 07/11/18 07/11/18 08/06/18 00:00 08:42 19:55 01:45 Temp 102.3 102.3 Pulse 84 88 104 Resp 20 O2 Delivery S/T 08/06/18 08/06/18 08/06/18 08/06/18 01:45 01:45 02:46 03:15 Temp 102.3 102.3 102.3 102.3 Pulse 104 104 106 103 Resp 20 20 22 22 B/P (MAP) 133/65 (87) 134/76 (95) 136/70 (92) Pulse Ox 94 94 92 94 O2 Delivery Nasal Canula Nasal Canula Nasal Canula Nasal Canula O2 Flow Rate 3.00 3.00 3.00 Laboratory Tests Test 08/06/18 02:07 08/06/18 02:20 08/06/18 02:21 08/06/18 02:28 Urine Collection Type CCMS Urine Color YELLOW Urine Appearance CLOUDY Urine Bilirubin NEGATIVE MG/DL Urine Ketones NEGATIVE Urine Specific Branch 1.010 Urine pH 6.5 Urine Protein 30 mg/dL Urine Urobilinogen NORMAL Urine Nitrate POSITIVE Urine Leukocyte Esterase 500/uL 2+ Urine Blood 50 2+ Urine RBC 0-2 RBC/HPF Urine WBC TNTC WBC/HPF Urine Squamous Epithelial Cells MODERATE #/HPF Urine Bacteria MANY Urine Glucose NORMAL Blood Gas Sample Site RT BRACIAL ARTERY Blood Gas pH 7.439 Blood Gas PCO2 46.2 mmHg Blood Gas PO2 61.7 mmHg Blood Gas HCO3 30.6 mmol/L Blood Gas Base Excess 5.7 mmol/L Jaswinder Test N/A Arterial Blood Oxygen Saturation 90.6 % Deoxyhemoglobin 9.3 % Carboxyhemoglobin 0.8 % Methemoglobin 0.3 % Total Hemoglobin 11.2 % Total Oxygen Concentration 14.1 % Lactic Acid (Blood Gas) 0.9 MMOL/L Blood Gas Temperature 37 Oxygen Delivery Method (LAB) NASAL CANNULA FiO2 32.0 % White Blood Count 9.9 10^3/uL Red Blood Count 3.90 10^6/uL Hemoglobin 10.6 g/dL Hematocrit 34.8 % Mean Corpuscular Volume 89.2 fL Mean Corpuscular Hemoglobin 27.2 pg Mean Corpuscular Hemoglobin Concent 30.5 g/dL Red Cell Distribution Width 13.8 % Platelet Count 161 10^3/uL Mean Platelet Volume 10.5 fL Neutrophils (%) (Auto) 83.5 % Lymphocytes (%) (Auto) 6.1 % Monocytes (%) (Auto) 9.3 % Neutrophils # (Auto) 8.2 10^3/uL Lymphocytes # (Auto) 0.6 10^3/uL Monocytes # (Auto) 0.9 10^3/uL Absolute Immature Granulocyte (auto 0.07 10^3 u/L Eosinophils % 0.1 % Basophils % 0.3 % Basophils # 0.0 10^3/uL Eosinophil Count 0.0 10^3/uL Sodium Level 138 mmol/L Potassium Level 4.0 mmol/L Chloride Level 99.0 mmol/L Carbon Dioxide Level 34.0 mmol/L Anion Gap 9.0 Blood Urea Nitrogen 19 mg/dL Creatinine 1.27 mg/dL Estimated GFR () 49.5 BUN/Creatinine Ratio 14.0 Glucose Level 194 mg/dL Calcium Level 9.2 mg/dL Total Bilirubin 0.4 mg/dL Aspartate Amino Transf (AST/SGOT) 17 U/L Alanine Aminotransferase (ALT/SGPT) 15 U/L Alkaline Phosphatase 67 U/L Total Creatine Kinase 34 U/L Troponin I 0.04 ng/mL Pro-B-Type Natriuretic Peptide 5381 pg/mL Total Protein 7.1 g/dL Albumin 2.8 g/dL Globulin 4.3 Percent Immature Gran (Cell Imm) 0.70 % Influenza Type A Antigen NEGATIVE Influenza B Immunofluorescence NEGATIVE Test 08/06/18 02:42 Differential Total Cells Counted 100 #CELLS Segmented Neutrophils 75 % Band Neutrophils 10 % Lymphocytes 7 % Monocytes 8 % Sepsis Infection Criteria Pres: Documented Infection LEVEL 1 SEPSIS INFECTION CRITE: ABX Therapy, Urinary Tract Infection LEVEL 2-SIRS (LIST ALL THAT AP: RR>20/min, HR>90/min, None/Not assessed Cardiovascular Evidence: Not Assessed or None Hematologic Evidence: None/Not assessed Hepatic Evidence: None/Not assessed Metabolic Evidence: None/Not assessed Neurological Evidence: Altered Mental Status Respiratory Evidence: Need for O2 to keep>90% Renal Evidence: None/Not assessed O2 Sat by Pulse Oximetry: 99 Oxygen Flow Rate: 20.00 Assessment/Plan Assessment/Plan Assessment/Plan 77 yo female with UTI, fever, weakness, COPD, CHF, DM, renal insufficiency - will give some IVF and follow renal fxn - cont IV abx - ambulate - recehck UA tomorrow - wean O2 as tolerated LUCAS PARR MD Aug 07, 2018 11:15
--- NOTE | 2018-08-07 11:25 | NUR ---
DISCHARGE PLAN CASE MANAGEMENT VISITED WITH PATIENT CONCERNING DISCHARGE PLAN AND NEEDS. 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 PATIENT STATES SHE DOES HAVE THE NIV TRILOGY IN PLACE. SHE STATED SHE WILL NOT USE IT ANYMORE BECAUSE AFTER ABOUT 3HOURS SHE FEELS LIKE IT IS SUFFOCATING HER WITH HOT AIR. CM WILL FOLLOW UP WITH [facility] TO MAKE SURE EQUIPMENT IS FUNCTIONING PROPERLY. PATIENT STATES SHE IS HAPPY AT [facility] AND WOULD LIKE TO DISCHARGE BACK THERE. CM NOTIFIED ANYI NUGENT AT [facility] THAT PATIENT IS HERE AT OUR FACILITY AND WILL BE DISCHARGING BACK TO THEIR FACILITY IN THE NEXT DAY OR TWO. DISCHARGE GOAL IS TO DISCHARGE TO [facility]. CM WILL CONTINUE TO FOLLOW.
[2018-08-07 11:29] VITALS: BP 110/64
[2018-08-07] MEDS ORDERED: NS 500ML 500 ML IV ONE (11:30)
[2018-08-07] MEDS: PROTONIX PO SCH (11:55)
[2018-08-07 16:50] VITALS: BP 98/56
[2018-08-07] MEDS: COUMADIN PO SCH (17:31)
[2018-08-07 20:43] VITALS: BP 107/63
[2018-08-07] MEDS: TYLENOL PO PRN (20:45)
[2018-08-07] MEDS: LIPITOR PO SCH (20:45)
[2018-08-07] MEDS: ROCEPHIN 1,000 MG in NS 100ML 100 ML IV SCH (20:55)
[2018-08-07] MEDS: LANTUS SQ SCH (20:58)
[2018-08-07] MEDS ORDERED: NS 250ML 250 ML IV ONE (20:59)
[2018-08-08 00:35] VITALS: BP 111/55
[2018-08-08] MEDS: TYLENOL PO PRN (04:01)
[2018-08-08 04:06] VITALS: BP 133/70
[2018-08-08 05:22] LABS: CALCIUM 8.8 mg/dL (8.4-10.5); CARBON DIOXIDE 31.6 mmol/L (20.0-32)
[2018-08-08 05:50] LABS: BILIRUBIN,URINE NEGATIVE (NEGATIVE); UROBILINOGEN,URINE NORMAL (NEGATIVE)
[2018-08-08 06:03] LABS: APPEARANCE,URINE CLEAR (CLEAR); UA COLOR YELLOW (YELLOW)
[2018-08-08] MEDS ORDERED: LANOLIN HYDROUS TP ONE (06:57)
[2018-08-08] MEDS: ACCU-CHEK MC SCH ×4 (07:30→21:44)
[2018-08-08 08:00] VITALS: BP 139/61
[2018-08-08] MEDS: HUMALOG SQ SCH ×3 (08:00→17:34)
[2018-08-08] MEDS: PULMICORT IH SCH ×2 (08:37→21:00)
[2018-08-08] MEDS: DUONEB 0.5 MG-3 MG/3 ML SOLN IH SCH ×3 (08:37→21:00)
[2018-08-08] MEDS: MIRALAX PO SCH ×2 (09:13→09:20)
[2018-08-08] MEDS: CEPHULAC PO SCH ×2 (09:13→09:20)
[2018-08-08] MEDS: KLOR-CON 10 PO SCH (09:14)
[2018-08-08] MEDS: LANOXIN PO SCH (09:14)
[2018-08-08] MEDS: COZAAR PO SCH (09:14)
[2018-08-08] MEDS: DALIRESP PO SCH (09:14)
[2018-08-08] MEDS: LASIX PO SCH (09:15)
[2018-08-08] MEDS: GLUCOTROL PO SCH ×2 (09:15→21:32)
[2018-08-08] MEDS: COREG PO SCH ×2 (09:15→21:31)
[2018-08-08] MEDS: COLACE PO SCH ×3 (09:16→21:31)
[2018-08-08] MEDS: RESTASIS OP SCH ×2 (09:16→21:00)
[2018-08-08] MEDS: ALDACTONE PO SCH ×2 (09:16→21:32)
[2018-08-08 12:32] VITALS: BP 135/72
[2018-08-08] MEDS: PROTONIX PO SCH (13:06)
[2018-08-08] MEDS: COUMADIN PO SCH (17:31)
[2018-08-08 20:30] VITALS: BP 134/62
[2018-08-08] MEDS: LIPITOR PO SCH (21:31)
[2018-08-08] MEDS: MEROPENEM 1,000 MG in NS 100ML 100 ML IV SCH (21:31)
[2018-08-08] MEDS: LANTUS SQ SCH (21:33)
[2018-08-09 01:05] VITALS: BP 121/64
[2018-08-09] MEDS: TYLENOL PO PRN (02:13)
--- NOTE | 2018-08-09 02:16 | NUR ---
TYLENOL 650MG PO GIVEN FOR PAIN OF A 6/10 PER PRN ORDER
[2018-08-09] MEDS ORDERED: XOPENEX IH STA (04:49)
--- NOTE | 2018-08-09 04:50 | NUR ---
NOTIFIED DR PARR OF PT 'S DIFFICULTY BREATHING, RECEIVED NEW ORDER FOR X1 XOPENEX 0.63 X1. RT NOTIFIED
[2018-08-09 05:09] VITALS: BP 111/59
[2018-08-09] MEDS: MEROPENEM 1,000 MG in NS 100ML 100 ML IV SCH ×2 (05:12→14:20)
[2018-08-09] MEDS: HUMALOG SQ SCH ×2 (09:03→12:00)
[2018-08-09] MEDS: PULMICORT IH SCH (09:04)
[2018-08-09] MEDS: DUONEB 0.5 MG-3 MG/3 ML SOLN IH SCH (09:04)
[2018-08-09 09:11] VITALS: BP 117/59
[2018-08-09] MEDS: ACCU-CHEK MC SCH ×2 (09:12→11:45)
[2018-08-09] MEDS: MIRALAX PO SCH (09:13)
[2018-08-09] MEDS: CEPHULAC PO SCH (09:13)
[2018-08-09] MEDS: DALIRESP PO SCH (09:14)
[2018-08-09] MEDS: LASIX PO SCH (09:14)
[2018-08-09] MEDS: COREG PO SCH (09:14)
[2018-08-09] MEDS: KLOR-CON 10 PO SCH (09:14)
[2018-08-09] MEDS: COZAAR PO SCH (09:14)
[2018-08-09] MEDS: LANOXIN PO SCH (09:15)
[2018-08-09] MEDS: COLACE PO SCH (09:15)
[2018-08-09] MEDS: RESTASIS OP SCH (09:15)
[2018-08-09] MEDS: ALDACTONE PO SCH (09:15)
[2018-08-09] MEDS: GLUCOTROL PO SCH (09:15)
[2018-08-09] MEDS ORDERED: LIDOCAINE 2% VIAL ONE (10:55)
--- NOTE | 2018-08-09 12:07 | PRM.PN ---
Subjective Subjective Date: Aug 08, 2018 Time: 18:00 Subjective Pt breathing ok; eating ok Patient History: Congestive heart failure (parents) Hypertension (paretns ) VTE VTE Risk Total Score: >5 VTE Risk Score VTE Risk: Score 0-1 = Low Risk (Aggressive mobilization; early ambulation; no VTE prophylaxis required) Score 2: Moderate Risk (Intermittent/Pneumatic Compression Device OR Lovenox/Heparin/Coumadin) Score 3-4: High Risk (Intermittent/Pneumatic Compression Device AND Lovenox/Heparin/Coumadin) Score > or =5: Highest Risk (Intermittent/Pneumatic Compression Device AND Lovenox/Heparin/Coumadin) Antico:Hep/LMWH/Coum/Xarelto: Yes Mechanical device ordered: Yes Review of Systems Constitutional: Malaise; No: Fever, Chills Eyes: No: Pain, Vision change, Conjunctivae inflammation, Eyelid inflammation ENT: No: Ear pain, Ear discharge, Nose pain, Nose discharge Respiratory: SOB with excertion Cardiovascular: No: Chest Pain, Palpitations, Orthopnea Gastrointestinal: Constipation; No: Nausea, Vomiting, Abdominal Pain, Diarrhea Genitourinary: No Dysuria, No Frequency; Incontinence Musculoskeletal: No: neck pain, shoulder pain, arm pain, back pain Skin: No: Lesions, Jaundice, Bruising Neurological: Weakness; No: Seizures Allergies: Coded Allergies: erythromycin base (Verified Allergy, Unknown, 02/12/18) Scheduled Atorvastatin 20MG (Lipitor 20MG), 20 MG PO HS Budesonide (Budesonide), 1 VIAL NEB RTTID, (Reported) Carvedilol (Carvedilol), 6.25 MG PO BID Celecoxib (Celebrex), 100 MG PO DAILY24 Cyclosporine (Restasis), 1 DROP OP BID, (Reported) Digoxin (Lanoxin), 125 MCG PO DAILY Docusate Sodium (Colace), 1 CAP PO BID, (Reported) Furosemide (Lasix), 1 TAB PO DAILY, (Reported) Glipizide (Glipizide), 2 TAB PO BID Insulin Glargine,Hum.rec.anlog (Lantus Solostar), 30 UNITS SQ HS, (Reported) Insulin Lispro (Humalog), 0 UNIT SQ TIDM Lactulose (Lactulose), 30 MILLILITER PO DAILY24, (Reported) Losartan Potassium (Losartan Potassium), 1 TAB PO DAILY, (Reported) Metolazone (Zaroxolyn), 2.5 MG PO DAILY24, (Reported) Pantoprazole Sodium (Pantoprazole Sodium), 40 MG PO DAILY24, (Reported) Polyethylene Glycol 3350 (Miralax), 1 PKT PO DAILY, (Reported) Potassium Chloride (Potassium Chloride), 1 TAB PO DAILY, (Reported) Roflumilast (Daliresp), 1 TAB PO DAILY, (Reported) Spironolactone 25MG (Aldactone 25MG), 1 TAB PO BID, (Reported) Warfarin Sodium (Warfarin Sodium), 1 TAB PO DAILY, (Reported) Scheduled PRN Ondansetron (Ondansetron Odt), 4 MG PO Q8 PRN for INSOMNIA, (Reported) Discontinued Medications Budesonide (Pulmicort), 0.5 MG IH RTBID Discontinued Reason: Discontinue Insulin Glargine,Hum.rec.anlog (Lantus), 35 UNIT SQ DAILY Discontinued Reason: No Longer Taking Losartan Potassium (Cozaar), 50 MG PO DAILY Discontinued Reason: Discontinue Roflumilast (Daliresp), 250 MCG PO DAILY Discontinued Reason: Discontinue Spironolactone 25MG (Aldactone 25MG), 25 MG PO DAILY Discontinued Reason: Discontinue Warfarin Sodium (Coumadin), 1 TAB PO TUES,ASAD,SAT, (Reported) Discontinued Reason: Prescription changed Warfarin Sodium (Coumadin), 1 TAB PO MON,WED,FRI,SUN, (Reported) Discontinued Reason: No Longer Taking [Ipratropium/Albuterol Sulfate], 3 ML IH RTTID Discontinued Reason: Discontinue Objective Vitals and I/O Vital Sign - Last 24 Hours 08/06/18 08/06/18 08/06/18 08/06/18 12:32 12:41 13:38 13:44 Pulse 110 110 89 88 Resp 22 36 32 B/P (MAP) 162/77 Pulse Ox 96 93 99 O2 Delivery Nasal Cannula O2 Flow Rate 3.00 FiO2 32 08/06/18 08/06/18 08/06/18 08/06/18 13:47 15:49 20:44 20:44 Temp 99.0 99.0 Pulse 100 88 88 Resp 30 16 16 B/P (MAP) 162/77 105/51 (69) Pulse Ox 90 91 91 O2 Delivery Nasal Canula Nasal Cannula O2 Flow Rate 2.50 3.00 FiO2 32 08/06/18 08/06/18 08/06/18 08/06/18 20:49 20:59 21:09 21:09 Temp 99.5 99.5 Pulse 88 90 90 Resp 16 28 B/P (MAP) 105/50 (68) 105/50 105/50 Pulse Ox 91 90 O2 Delivery Nasal Canula O2 Flow Rate 2.50 08/06/18 08/06/18 08/07/18 08/07/18 22:36 22:39 00:53 03:59 Temp 99.9 97.9 99.9 97.9 Pulse 88 91 65 Resp 18 24 B/P (MAP) 131/73 (92) 93/51 (65) Pulse Ox 93 93 91 O2 Delivery Comfort Joseph Comfort Flow Comfort Flow O2 Flow Rate 20.00 20.00 20.00 FiO2 80 08/07/18 08/07/18 08/07/18 08/07/18 08:36 08:46 08:46 08:58 Temp 97.8 97.8 Pulse 65 86 86 75 Resp 22 18 B/P (MAP) 98/56 (70) Pulse Ox 99 99 99 99 O2 Delivery Comfort Flow Comfort Joseph O2 Flow Rate 20.00 20.00 FiO2 80 08/07/18 08/07/18 08/07/18 08/07/18 09:00 09:00 09:20 09:20 Pulse 75 B/P (MAP) 98/56 98/56 98/56 98/56 Intake and Output 08/06/18 08/06/18 08/07/18 15:00 23:00 07:00 Intake Total 240 ml 700 ml Output Total 250 ml 350 ml Balance 240 ml 450 ml -350 ml General: Alert, Cooperative, No acute distress HEENT: Atraumatic, PERRLA Neck: Supple Lungs: Other (mild rhonchi) Heart: Normal S1, Normal S2 Abdomen: Normal bowel sounds, Soft Extremities: No clubbing, No cyanosis Neuro: Normal speech Psych/Mental Status: Mental status NL, Mood NL All Results(Lab/Rad) Laboratory Tests Test 08/06/18 18:00 08/07/18 08:43 Prothrombin Time 16.1 SEC Prothrombin Time INR (Non-Therap) 1.6 Sodium Level 136 mmol/L 135 mmol/L Potassium Level 4.1 mmol/L 4.0 mmol/L Chloride Level 99.0 mmol/L 97.0 mmol/L Carbon Dioxide Level 31.2 mmol/L 32.0 mmol/L Glucose Level 144 mg/dL 125 mg/dL Blood Urea Nitrogen 26 mg/dL 36 mg/dL Creatinine 1.51 mg/dL 1.90 mg/dL Calcium Level 9.0 mg/dL 8.8 mg/dL Anion Gap 9.9 10.0 Estimated GFR () 40.5 31.1 BUN/Creatinine Ratio 17.0 18.0 White Blood Count 8.1 10^3/uL Red Blood Count 3.71 10^6/uL Hemoglobin 10.1 g/dL Hematocrit 33.3 % Mean Corpuscular Volume 89.8 fL Mean Corpuscular Hemoglobin 27.2 pg Mean Corpuscular Hemoglobin Concent 30.3 g/dL Red Cell Distribution Width 14.1 % Platelet Count 131 10^3/uL Mean Platelet Volume 10.2 fL Neutrophils (%) (Auto) 76.3 % Lymphocytes (%) (Auto) 7.3 % Monocytes (%) (Auto) 15.3 % Neutrophils # (Auto) 6.2 10^3/uL Lymphocytes # (Auto) 0.6 10^3/uL Monocytes # (Auto) 1.2 10^3/uL Absolute Immature Granulocyte (auto 0.04 10^3 u/L Eosinophils % 0.4 % Basophils % 0.2 % Basophils # 0.0 10^3/uL Eosinophil Count 0.0 10^3/uL Percent Immature Gran (Cell Imm) 0.50 % Current Medications Medications (Trade) Dose Ordered Sig/Jose Route PRN Reason Start Time Stop Time Status Last Admin Dose Admin Acetaminophen (Tylenol) 1,000 mg STAT STAT PO 08/06/18 02:07 08/06/18 02:10 DC 08/06/18 02:33 Acetaminophen (Tylenol) 500 mg STK-MED ONCE PO 08/06/18 02:33 08/06/18 02:34 DC Ceftriaxone Sodium 1000 mg/ Sodium Chloride 100 ml @ 100 mls/hr STAT STAT IV 08/06/18 04:16 08/06/18 05:15 DC 08/06/18 04:20 Furosemide (Lasix) 20 mg STAT STAT IV 08/06/18 04:16 08/06/18 04:20 DC Sodium Chloride 100 ml @ ud STK-MED ONCE IV 08/06/18 04:20 08/06/18 04:21 DC Furosemide (Lasix) 20 mg STK-MED ONCE .ROUTE 08/06/18 04:20 08/06/18 04:21 DC Ceftriaxone Sodium (Rocephin) 1,000 mg STK-MED ONCE .ROUTE 08/06/18 04:20 08/06/18 04:21 DC Furosemide (Lasix) 20 mg OT ONCE IV 08/06/18 14:00 08/06/18 14:01 DC 08/06/18 13:47 Ceftriaxone Sodium 1000 mg/ Sodium Chloride 100 ml @ 100 mls/hr Q24HRS IV 08/06/18 21:00 09/05/18 20:59 08/06/18 21:02 Atorvastatin Calcium (Lipitor) 20 mg HS PO 08/06/18 21:00 09/05/18 20:59 08/06/18 21:08 Budesonide (Pulmicort) 0.5 mg RTBID IH 08/06/18 21:00 09/05/18 20:59 08/07/18 08:42 Carvedilol (Coreg) 6.25 mg BID PO 08/06/18 11:00 09/05/18 10:59 08/07/18 09:20 Cyclosporine (Restasis) RESTASIS PT TO USE OWN MED BID OP 08/06/18 21:00 09/05/18 20:59 Digoxin (Lanoxin) 125 mcg DAILY PO 08/07/18 09:00 09/06/18 08:59 08/07/18 09:20 Docusate Sodium (Colace) 100 mg BID PO 08/06/18 21:00 09/05/18 20:59 08/07/18 09:19 Glipizide (Glucotrol) 10 mg BID PO 08/06/18 21:00 09/05/18 20:59 08/07/18 09:21 Insulin Human Lispro (Humalog) TIDM SQ 08/06/18 12:00 08/06/18 12:00 DC Losartan Potassium (Cozaar) 50 mg DAILY PO 08/07/18 09:00 09/06/18 08:59 Ondansetron HCl (Zofran Odt) 4 mg Q8 PRN PO INSOMNIA 08/06/18 11:00 09/05/18 10:59 08/06/18 12:40 Pantoprazole Sodium (Protonix) 40 mg DAILY24 PO 08/06/18 12:00 09/05/18 11:59 08/06/18 12:40 Polyethylene Glycol (Miralax) 17 gm DAILY PO 08/07/18 09:00 09/06/18 08:59 08/07/18 09:30 Roflumilast (Daliresp) 500 mcg DAILY PO 08/07/18 09:00 09/06/18 08:59 08/07/18 09:30 Spironolactone (Aldactone) 25 mg BID PO 08/06/18 21:00 09/05/18 20:59 08/06/18 21:09 Insulin Glargine (Lantus) 20 unit HS SQ 08/06/18 21:00 09/05/18 20:59 08/06/18 22:18 Potassium Chloride (Klor-Con 10) 20 meq DAILY PO 08/07/18 09:00 09/06/18 08:59 08/07/18 09:30 Warfarin Sodium (Coumadin) 4 mg 17 PO 08/06/18 17:00 09/05/18 16:59 08/06/18 18:14 Insulin Human Lispro (Humalog) 5 unit TIDM SQ 08/06/18 12:00 08/06/18 12:00 DC Miscellaneous Medication (Accu-Chek) 1 each ACHS 08/06/18 17:30 09/05/18 17:29 08/07/18 07:30 Dextrose (Dextrose 50%-Water Syringe) 25 ml PRN PRN IV HYPOGLYCEMIA 08/06/18 12:00 09/05/18 11:59 Insulin Human Lispro (Humalog) Y TIDM SQ 08/06/18 12:00 09/05/18 11:59 Albuterol/ Ipratropium (Duoneb 0.5 Mg-3 Mg/3 ml Soln) 3 ml STAT STAT IH 08/06/18 13:30 08/06/18 13:40 DC 08/06/18 13:38 Albuterol/ Ipratropium (Duoneb 0.5 Mg-3 Mg/3 ml Soln) 3 ml RTTID IH 08/06/18 21:00 09/05/18 20:59 08/07/18 08:42 Lorazepam (Ativan) 0.5 mg OT STAT PO 08/06/18 13:30 08/06/18 13:40 DC 08/06/18 13:30 Lorazepam (Ativan) 0.5 mg STK-MED ONCE .ROUTE 08/06/18 13:41 08/06/18 13:42 DC Sodium Chloride 250 ml @ ud STK-MED ONCE IV 08/06/18 21:11 08/06/18 21:12 DC Ibuprofen (Motrin) 400 mg Q6HR PRN PO PAIN 1 - 3 08/07/18 00:00 09/06/18 00:00 08/07/18 01:04 Acetaminophen (Tylenol) 650 mg Q6HR PRN PO for fever 08/07/18 00:00 09/06/18 00:00 08/06/18 23:46 Furosemide (Lasix) 20 mg DAILY PO 08/07/18 09:00 09/06/18 08:59 08/07/18 09:20 Lactulose (Cephulac) 30 gm DAILY24 PO 08/07/18 08:30 09/06/18 08:29 08/07/18 09:22 Course Sepsis Screening Results: Posi: POSITIVE Sepsis Qualifier/Stage: SEPSIS RISK Duration or Total Time Spent w: 60 mins Vitals & review Data Vital Sign - Last 24 Hours 07/10/18 07/11/18 07/11/18 08/06/18 00:00 08:42 19:55 01:45 Temp 102.3 102.3 Pulse 84 88 104 Resp 20 O2 Delivery S/T 08/06/18 08/06/18 08/06/18 08/06/18 01:45 01:45 02:46 03:15 Temp 102.3 102.3 102.3 102.3 Pulse 104 104 106 103 Resp 20 20 22 22 B/P (MAP) 133/65 (87) 134/76 (95) 136/70 (92) Pulse Ox 94 94 92 94 O2 Delivery Nasal Canula Nasal Canula Nasal Canula Nasal Canula O2 Flow Rate 3.00 3.00 3.00 Laboratory Tests Test 08/06/18 02:07 08/06/18 02:20 08/06/18 02:21 08/06/18 02:28 Urine Collection Type CCMS Urine Color YELLOW Urine Appearance CLOUDY Urine Bilirubin NEGATIVE MG/DL Urine Ketones NEGATIVE Urine Specific [place] 1.010 Urine pH 6.5 Urine Protein 30 mg/dL Urine Urobilinogen NORMAL Urine Nitrate POSITIVE Urine Leukocyte Esterase 500/uL 2+ Urine Blood 50 2+ Urine RBC 0-2 RBC/HPF Urine WBC TNTC WBC/HPF Urine Squamous Epithelial Cells MODERATE #/HPF Urine Bacteria MANY Urine Glucose NORMAL Blood Gas Sample Site RT BRACIAL ARTERY Blood Gas pH 7.439 Blood Gas PCO2 46.2 mmHg Blood Gas PO2 61.7 mmHg Blood Gas HCO3 30.6 mmol/L Blood Gas Base Excess 5.7 mmol/L Jaswinder Test N/A Arterial Blood Oxygen Saturation 90.6 % Deoxyhemoglobin 9.3 % Carboxyhemoglobin 0.8 % Methemoglobin 0.3 % Total Hemoglobin 11.2 % Total Oxygen Concentration 14.1 % Lactic Acid (Blood Gas) 0.9 MMOL/L Blood Gas Temperature 37 Oxygen Delivery Method (LAB) NASAL CANNULA FiO2 32.0 % White Blood Count 9.9 10^3/uL Red Blood Count 3.90 10^6/uL Hemoglobin 10.6 g/dL Hematocrit 34.8 % Mean Corpuscular Volume 89.2 fL Mean Corpuscular Hemoglobin 27.2 pg Mean Corpuscular Hemoglobin Concent 30.5 g/dL Red Cell Distribution Width 13.8 % Platelet Count 161 10^3/uL Mean Platelet Volume 10.5 fL Neutrophils (%) (Auto) 83.5 % Lymphocytes (%) (Auto) 6.1 % Monocytes (%) (Auto) 9.3 % Neutrophils # (Auto) 8.2 10^3/uL Lymphocytes # (Auto) 0.6 10^3/uL Monocytes # (Auto) 0.9 10^3/uL Absolute Immature Granulocyte (auto 0.07 10^3 u/L Eosinophils % 0.1 % Basophils % 0.3 % Basophils # 0.0 10^3/uL Eosinophil Count 0.0 10^3/uL Sodium Level 138 mmol/L Potassium Level 4.0 mmol/L Chloride Level 99.0 mmol/L Carbon Dioxide Level 34.0 mmol/L Anion Gap 9.0 Blood Urea Nitrogen 19 mg/dL Creatinine 1.27 mg/dL Estimated GFR () 49.5 BUN/Creatinine Ratio 14.0 Glucose Level 194 mg/dL Calcium Level 9.2 mg/dL Total Bilirubin 0.4 mg/dL Aspartate Amino Transf (AST/SGOT) 17 U/L Alanine Aminotransferase (ALT/SGPT) 15 U/L Alkaline Phosphatase 67 U/L Total Creatine Kinase 34 U/L Troponin I 0.04 ng/mL Pro-B-Type Natriuretic Peptide 5381 pg/mL Total Protein 7.1 g/dL Albumin 2.8 g/dL Globulin 4.3 Percent Immature Gran (Cell Imm) 0.70 % Influenza Type A Antigen NEGATIVE Influenza B Immunofluorescence NEGATIVE Test 08/06/18 02:42 Differential Total Cells Counted 100 #CELLS Segmented Neutrophils 75 % Band Neutrophils 10 % Lymphocytes 7 % Monocytes 8 % Sepsis Infection Criteria Pres: Documented Infection LEVEL 1 SEPSIS INFECTION CRITE: ABX Therapy LEVEL 2-SIRS (LIST ALL THAT AP: None/Not assessed Cardiovascular Evidence: Not Assessed or None Hematologic Evidence: None/Not assessed Hepatic Evidence: None/Not assessed Metabolic Evidence: None/Not assessed Neurological Evidence: None/Not assessed Respiratory Evidence: Need for O2 to keep>90% Renal Evidence: None/Not assessed O2 Sat by Pulse Oximetry: 100 Oxygen Flow Rate: 3.00 Assessment/Plan Assessment/Plan Assessment/Plan 77 yo female with ESBL E coli UTI, weakness, COPD, CHF, DM, renal insufficiency - cont IV abx - change IV abx - cont O2 and neb tx and follow - D/C planning for tomorrow with IV abx for 9 more days Plan 77 yo female with UTI, fever, weakness, COPD, CHF, DM, renal insufficiency - will give some IVF and follow renal fxn - cont IV abx - ambulate - recehck UA tomorrow - wean O2 as tolerated LUCAS PARR MD Aug 09, 2018 12:07
[2018-08-09] MEDS ORDERED: ERTA1VIA4 IV (12:28)
--- NOTE | 2018-08-09 12:49 | DSH ---
DATE OF DISCHARGE: 08/09/2018 ADMITTING DIAGNOSES: 1. Urinary tract infection with fever and altered mental status. 2. Chronic obstructive pulmonary disease with chronic atrial fibrillation, cardiomyopathy, type 2 diabetes mellitus, pulmonary hypertension. DISCHARGE DIAGNOSES: ESBL E. coli UTI, resolving with history of chronic AFib, cardiomyopathy, COPD, diabetes, pulmonary hypertension and cardiomyopathy. HOSPITAL COURSE: The patient is a 77-year-old female who started to spike fevers at [facility] with some altered mental status. She did have a UTI and so I started her on IV antibiotics and gave her and I watched her heart and lungs in the hospital. Her creatinine did bump up, but with some IV fluids. Her creatinine is improved. Her mental status quickly improved within 10 hours of fluids and IV antibiotics. She did not appear septic at that time when she came in, but the urine culture came back positive for E. coli that had ESBL activity. It was sensitive to meropenem and ertapenem, so I switched over to meropenem IV in the hospital. Her clinical status has greatly improved. Her breathing is better. She is back on her O2 nasal cannula, oxygenating well. I have her back on her regular heart medications and breathing treatments and at this time, her urine is improving. So I have arranged for her to complete a total of a 10-day course of ertapenem to treat the ESBL E. coli UTI, so she will be discharged back to [facility] today. We will continue ertapenem 1 gram IV daily for 9 more days to complete a 10-day course. Resume her usp medications, activity as tolerated, resume her usp diet and resume her O2 and neb treatments as well. Carla Chen MD DR: AUGUSTO/reanna JOB# [id number]
[2018-08-09] MEDS ORDERED: NS 100ML 100 ML IV ONE (14:17)
--- NOTE | 2018-08-09 14:26 | NUR ---
REPORT REPORT CALLED IN TO [facility]. SPOKE WITH SYLVIA TAYLOR
--- NOTE | 2018-08-09 15:21 | NUR ---
DISCHARGE PT D/C AT THIS TIME. PT TAKE VIA W/C BY [facility] KRISTEN SAUL
[2018-08-09 15:23] VITALS: BP 117/59
== END 2018-08-09 15:15 | DRG 689 ==
LOC: ER 01:45 → EDBD 01:45 → MS 04:16 → EDPENDDISDT 08-09 04:49 → EDPENDDISTM 08-09 15:24
PROVIDERS: ADMIT Pediatrics; ATTEND Pediatrics
PROC: 05HB33Z Insertion of Infusion Device into Right Basilic Vein, Percutaneous Approach (ICD-10-PCS; principal; 2018-08-09)
PROC: B54MZZA Ultrasonography of Right Upper Extremity Veins, Guidance (ICD-10-PCS; 2018-08-09)
DX: N39.0 Urinary tract infection, site not specified (principal); I50.43 Acute on chronic combined systolic (congestive) and diastolic (congestive) heart failure; I42.9 Cardiomyopathy, unspecified; I11.0 Hypertensive heart disease with heart failure; B96.20 Unspecified Escherichia coli [E. coli] as the cause of diseases classified elsewhere; E11.9 Type 2 diabetes mellitus without complications; I27.20 Pulmonary hypertension, unspecified; I48.2 Chronic atrial fibrillation; J44.9 Chronic obstructive pulmonary disease, unspecified; N28.9 Disorder of kidney and ureter, unspecified; N39.44 Nocturnal enuresis; Z16.12 Extended spectrum beta lactamase (ESBL) resistance; Z88.1 Allergy status to other antibiotic agents; Z79.2 Long term (current) use of antibiotics; Z79.01 Long term (current) use of anticoagulants; Z79.4 Long term (current) use of insulin; Z79.899 Other long term (current) drug therapy; Z85.118 Personal history of other malignant neoplasm of bronchus and lung; Z87.891 Personal history of nicotine dependence
CPT/HCPCS: 36415; 36569; 70450; 71045; 80048; 80053; 81000; 82550; 82803; 82948; 83880; 84484; 85025; 85610; 87040; 87077; 87086; 87186; 87804; 93005; 94640; 99285; A4338; G0378; J0696; J1815; J2001; J3480; J3490; J7040; J7050; J7620; J7627; Q0162; J1940